=== PATIENT | female | born 1940 | race Caucasian/White ===

== ENCOUNTER 2020-05-03 13:45 | Inpatient (IN) | payer MEDICARE, SELFPAY ==
[2020-05-03] VITALS (8 sets, daily range): BP systolic 117–137; BP diastolic 65–98; PULSE 80–123; RESP 18–20; TEMP 36.7–37; O2SAT 94–99; BMI 24.7; BMI 25.7
--- NOTE | 2020-05-03 14:03 | XR_ITS ---
EXAMINATION: XR CHEST CLINICAL INFORMATION: Chest pain COMPARISON: 05/29/2019 TECHNIQUE: Frontal view of the chest was obtained. FINDINGS: No focal consolidation, pulmonary edema, or pleural effusion. Stable cardiomediastinal silhouette. Right axillary surgical clips. IMPRESSION: No acute cardiopulmonary findings. No significant change.
--- NOTE | 2020-05-03 14:03 | ECG_ITS ---
Test Reason : CHEST PAIN Blood Pressure : / mmHG Vent. Rate : 134 BPM Atrial Rate : 170 BPM P-R Int : 000 ms QRS Dur : 078 ms QT Int : 322 ms P-R-T Axes : 000 -03 254 degrees QTc Int : 480 ms Atrial fibrillation with rapid ventricular response Low voltage QRS ST & T wave abnormality, consider anterolateral ischemia Abnormal ECG When compared with ECG of 01-DEC-2018 11:41, Atrial fibrillation has replaced Sinus rhythm Vent. rate has increased BY 59 BPM Referred By: Manny Love Electronically Signed By:NEEMA VALADEZ MD
[2020-05-03 14:19] LABS: MANUAL DIFF FLAG NO
[2020-05-03] MEDS: dilTIAZem HCL 50 MG/10 ML VIAL 15.30875 MG IVPUSH (14:20)
[2020-05-03 14:23] LABS: Basophils Absolute Auto 0.1 X10*3/uL (0.0-0.2); Basophils Percent Auto 0.8 % (0-2); Eosinophils Absolute Auto 0.2 X10*3/uL (0.0-0.4); Eosinophils Percent Auto 2.6 % (0-4); Hematocrit 38.1 % (37-47); Hemoglobin 12.7 g/dl (12.0-16.0); Imm Gran Abs Auto 0.01 X10*3/uL (0.00-0.03); Imm Gran Pct Auto 0.2 % (0.0-0.4); Lymphocytes Absolute Auto 2.1 X10*3/uL (1.2-4.9); Lymphocytes Percent Auto 32.9 % (20-40); Mean Corpuscular HGB Conc 33.3 g/dl (31.0-35.0); Mean Corpuscular Hemoglobin 30.6 pg (27.0-33.0); Mean Corpuscular Volume 91.8 fL (80-98); Mean Platelet Volume 10.3 fL (9.4-12.3); Monocytes Absolute Auto 0.5 X10*3/uL (0.1-1.2); Monocytes Percent Auto 7.3 % (2-11); Neutrophils Absolute Auto 3.6 X10*3/uL (2.0-8.3); Neutrophils Percent Auto 56.2 % (45-73); Platelet Count 250 X10*3/uL (160-400); Red Blood Count 4.15 X10*6/uL (4.20-5.50); Red Cell Distribution Width 13.4 % (11.0-16.0); White Blood Count 6.4 X10*3/uL (4.8-10.8)
--- NOTE | 2020-05-03 14:26 | PC.NURSE ---
VERBAL ORDER TO HOLD THE CARDIZAM 15MG BY DR NUGENT, HEART RATE RANGES FROM 93-115,AT THIS TIME, BP 117/87
[2020-05-03 14:52] LABS: Alanine Aminotransferase 14 U/L (0-31); Alkaline Phosphatase 71 U/L (39-117); Anion Gap 14 (12-20); Aspartate Amino Transferase 15 U/L (5-31); Bilirubin Total 0.7 mg/dL (0.0-1.0); Blood Urea Nitrogen 23 mg/dL (9-16); Calcium 8.8 mg/dL (8.4-10.2); Carbon Dioxide 21 mmol/L (22-29); Chloride 108 mmol/L (96-108); Creatinine Clr Calc Pharmacy 30.6; Estimated Glomerular Filt Rate 42; Glucose Random 135 mg/dL (60-115); Potassium 4.3 mmol/l (3.3-5.1); Sodium 139 mmol/L (135-145); Total Protein 6.4 g/dL (6.5-8.0)
[2020-05-03 14:58] LABS: Troponin-I High Sensitivity 6.1 ng/L (<3.5-17.0)
--- NOTE | 2020-05-03 15:06 | ED_ITS ---
HPI - Arrhythmia/Palpitations General Chief Complaint: Arrhythmia/Palpitations Stated Complaint: MULTIPLE COMPLAINTS Time Seen by Provider: 05/03/20 14:03 Source: patient Limitations: no limitations History of Present Illness HPI narrative: This is 80 years old of female who presented to the emergency department with a chief complain no palpitations, also she is complaining of shortness of breath she has history A fib hhe is anticoagulated with the [place] GUTIERREZ complaint: rapid heart beat and heart racing Duration: constant Severity: moderate Context: occurred during rest Arrhythmia history: atrial fibrillation Related Data Allergies Allergy/AdvReac Type Severity Reaction Status Date / Time No Known Allergies Allergy Unverified 04/09/20 16:39 [No Known Allergies*] Review of Systems Review of Systems: Yes all other systems are reviewed and are negative Cardiovascular: Cardiovascular: Reports no additional cardiovascular complaints Respiratory: Respiratory: Reports no additional respiratory complaints Psychiatric: Psychiatric: Reports no additional psychiatric complaints [facility] Past Medical History Attestation statement: The following information was validated with the patient. Medical History (Updated 05/03/20 @ 16:27 by Manny Love MD) Afib HTN (hypertension) Surgical History History of bilateral knee replacement Social History Social History Smoking Status: Former smoker Use of substances other than those prescribed or required for medical reasons: No Advance Directives: No Advance Directives Information Provided: Yes Physical Exam Vital Signs: Vital Signs: Vital Signs Temp Pulse Pulse Resp BP Pulse Ox 05/03/20 15:46 113 H 134/68 05/03/20 15:18 98.0 F 89 20 137/66 94 05/03/20 14:27 93 05/03/20 14:21 98 117/87 05/03/20 14:00 98.6 F 123 H 18 129/98 H 98 Body Mass Index 24.7 Const: General: cooperative Orientation/consciousness: oriented to person and oriented to place HENMT: Head: Yes normal to inspection Eyes: General: appearance normal, both eyes and all related structures Neck: Neck: Yes normal visual inspection Chest: Chest palpation & inspection: normal inspection of the chest and normal palpation of entire chest wall Resp: Effort & Inspection: normal respiratory effort and able to speak in complete sentences Cardio: Jugular venous distension: no JVD Rate: tachycardic Rhythm: abnormal rhythm Skin: General skin exam: no rashes or lesions noted and elasticity normal Neuro: General: oriented to person and oriented to place MDM - Arrhythmia/Palpitations Lab Data Attestation: I reviewed the patient's lab results. Result diagrams: 05/03/20 14:12 05/03/20 14:12 Labs: Lab Results 05/03/20 05/03/20 05/03/20 Range/Units 14:12 14:12 14:12 WBC 6.4 (4.8-10.8) X10*3/uL RBC 4.15 L (4.20-5.50) X10*6/uL Hgb 12.7 (12.0-16.0) g/dl Hct 38.1 (37-47) % MCV 91.8 (80-98) fL MCH 30.6 (27.0-33.0) pg MCHC 33.3 (31.0-35.0) g/dl RDW 13.4 (11.0-16.0) % Plt Count 250 (160-400) X10*3/uL MPV 10.3 (9.4-12.3) fL Immature Gran % (Auto) 0.2 (0.0-0.4) % Neut % (Auto) 56.2 (45-73) % Lymph % (Auto) 32.9 (20-40) % [place] % (Auto) 7.3 (2-11) % Eos % (Auto) 2.6 (0-4) % Baso % (Auto) 0.8 (0-2) % Lymph # (Auto) 2.1 (1.2-4.9) X10*3/uL [place] # (Auto) 0.5 (0.1-1.2) X10*3/uL Eos # (Auto) 0.2 (0.0-0.4) X10*3/uL Baso # (Auto) 0.1 (0.0-0.2) X10*3/uL Abs Immat Gran (auto) 0.01 (0.00-0.03) X10*3/uL Absolute Neuts (auto) 3.6 (2.0-8.3) X10*3/uL Absolute Nucleated RBC 0.000 (0.0-0.012) X10*3/uL Nucleated RBC % (auto) 0.0 (0.0-0.2) /100WBC Sodium 139 (135-145) mmol/L Potassium 4.3 (3.3-5.1) mmol/l Chloride 108 (96-108) mmol/L Carbon Dioxide 21 L (22-29) mmol/L Anion Gap 14 (12-20) BUN 23 H (9-16) mg/dL Creatinine 1.24 (0.5-1.4) mg/dL Estim Creat Clear Calc 30.6 Estimated GFR 42 Random Glucose 135 H (60-115) mg/dL Calcium 8.8 (8.4-10.2) mg/dL Total Bilirubin 0.7 (0.0-1.0) mg/dL AST 15 (5-31) U/L ALT 14 (0-31) U/L Alkaline Phosphatase 71 (39-117) U/L Troponin I High Sens 6.1 (<3.5-17.0) ng/L Total Protein 6.4 L (6.5-8.0) g/dL Albumin 4.0 (3.5-5.0) g/dL ECG Data Attestation: I personally reviewed and interpreted this ECG as follows: ECG interpretation time: 15:18 Pacemaker model: atrial fibrillation rate [address]-T changes Critical Care Time Critical Care Time Total Critical Care Time: 30 Attestation: CRICKET sommerzem Discharge Plan Discharge Clinical Impression: Atrial fibrillation with rapid ventricular response Patient Disposition: Admitted As Inpatient
[2020-05-03] MEDS: dilTIAZem HCL 125 MG in 0.9 % Sodium Chloride 100 ML IVCONT (15:44)
--- NOTE | 2020-05-03 16:32 | PC.NURSE ---
CARDIZAM DRIP INCREASED FROM 5MG/H TO 10MG/H
--- NOTE | 2020-05-03 16:44 | PM.IMHP ---
History of Present Illness Date of Service: 05/03/20 <Jeri Fuentes NP - Last Filed: 05/03/20 16:57> Chief Complaint: Shortness of breath <Jeri Fuentes NP - Last Filed: 05/03/20 16:57> 80-year-old woman presented to the ER with complaints of increased shortness of breath. She stated that over the last 3 days she has felt more tired and short of breath and having bilateral leg pain. She was reported that yesterday she had been going through her closets in taking close out and she started feeling dizzy. And this morning she noticed that she had a bloodshot red eye and that is what concerned her and that is really why she presented to the ER. She does have a history of atrial fibrillation. in the ER chest x-ray was negative for any consolidation. She was not noted to have any fever or leukocytosis. She was started on IV diltiazem and given 2 doses of IV push diltiazem. She will be admitted for further management treatment of atrial fibrillation with rapid ventricular response. <Jeri Fuentes NP - Last Filed: 05/03/20 16:57> Review of Systems Review of Systems: Denies any recent fever chills or decrease in appetite respiratory denies any shortness of breath coverage production cardiovascular no PND or edema gastrointestinal denies any dysphagia abdominal pain nausea vomiting or diarrhea genitourinary denies any dysuria frequency or hematuria musculoskeletal denies any joint pain or swelling neuropsych denies any weakness or seizures all other systems reviewed are negative <Jeri Fuentes NP - Last Filed: 05/03/20 16:57> [facility] Medical History: Medical History Afib Breast cancer Chronic back pain Diverticulitis HTN (hypertension) Mitral regurgitation <VITA Temple Last Filed: 05/03/20 16:57> Functional capacity: independent ambulation <Jeri Fuentes NP - Last Filed: 05/03/20 16:57> Family History: Family History Father No problems noted. Mother No problems noted. <VITA Temple Last Filed: 05/03/20 16:57> Pertinent family history: hypertension <VITA Temple Last Filed: 05/03/20 16:57> Surgical History: Surgical History History of appendectomy History of bilateral knee replacement Status post right breast lumpectomy <Jeri Fuentes NP - Last Filed: 05/03/20 16:57> Social History: Social History Household Members: Spouse Housing: House Smoking Status: Former smoker Use of substances other than those prescribed or required for medical reasons: No Advance Directives: No Advance Directives Information Provided: Yes service: No Current occupational status: retired <Jeri Fuentes NP - Last Filed: 05/03/20 16:57> Meds Allergies/Adverse reactions: Allergies Allergy/AdvReac Type Severity Reaction Status Date / Time No Known Allergies Allergy Verified 05/03/20 17:24 [No Known Allergies*] <Jeri Fuentes NP - Last Filed: 05/03/20 16:57> Home medications: Home Medications Medication Instructions Recorded Confirmed Type Eliquis 5 mg PO BID 05/03/20 05/15/20 History amlodipine 5 mg PO DAILY 05/03/20 05/15/20 History irbesartan 150 mg PO DAILY 05/03/20 05/15/20 History omeprazole 20 mg PO DAILY 05/03/20 05/15/20 History metoprolol tartrate 50 mg tablet 50 mg PO BID 05/15/20 05/15/20 History <Jeri Fuentes NP - Last Filed: 05/03/20 16:57> Physical Exam Vital Signs and Narrative: Vital Signs: Last Vital Signs Temp 98.0 F 05/03/20 15:18 Pulse 114 H 05/03/20 16:28 Resp 18 05/03/20 16:28 BP 127/65 05/03/20 16:28 Pulse Ox 99 05/03/20 16:28 Body Mass Index 24.7 <Jeri Fuentes NP - Last Filed: 05/03/20 16:57> Results Labs Labs: Laboratory Tests 05/03/20 05/03/20 05/03/20 14:12 14:12 14:12 WBC 6.4 RBC 4.15 L Hgb 12.7 Hct 38.1 MCV 91.8 MCH 30.6 MCHC 33.3 RDW 13.4 Plt Count 250 MPV 10.3 Immature Gran % (Auto) 0.2 Neut % (Auto) 56.2 Lymph % (Auto) 32.9 [place] % (Auto) 7.3 Eos % (Auto) 2.6 Baso % (Auto) 0.8 Lymph # (Auto) 2.1 [place] # (Auto) 0.5 Eos # (Auto) 0.2 Baso # (Auto) 0.1 Abs Immat Gran (auto) 0.01 Absolute Neuts (auto) 3.6 Absolute Nucleated RBC 0.000 Nucleated RBC % (auto) 0.0 Sodium 139 Potassium 4.3 Chloride 108 Carbon Dioxide 21 L Anion Gap 14 BUN 23 H Creatinine 1.24 Estim Creat Clear Calc 30.6 Estimated GFR 42 Random Glucose 135 H Calcium 8.8 Total Bilirubin 0.7 AST 15 ALT 14 Alkaline Phosphatase 71 Troponin I High Sens 6.1 Total Protein 6.4 L Albumin 4.0 <Jeri Fuentes NP - Last Filed: 05/03/20 16:57> Assessment and Plan (1) Atrial fibrillation with rapid ventricular response: Status: Acute <Jeri Fuentes NP - Last Filed: 05/03/20 16:57> (2) HTN (hypertension): Status: Chronic <Jeri Fuentes NP - Last Filed: 05/03/20 16:57> 80-year-old woman admitted with atrial fibrillation with rapid ventricular response with history of atrial fibrillation. Atrial fibrillation with rapid ventricular response. Continue IV diltiazem, monitor on telemetry, Cardiology consultation, continue Eliquis. Hypertension. Stable blood pressure. Continue home medications. DVT prophylaxis with Eliquis. Case discussed with Dr. Roldan Full code <Jeri Fuentes NP - Last Filed: 05/03/20 16:57>
--- NOTE | 2020-05-03 17:06 | PM.EVENT ---
Event Note Event Note: Patient seen and examined- came to the hospital found to have AFib with RVR and had generalized weakness: patient also has some question of a red eye on what is the side patient started on diltiazem drip. patient was admitted last year to the hospital when she required the cardioversion which was successful.. physical exam: Cvs: Irregular rhythm, [id number] , no murmur res: clear to auscultation ,no rhonchii or wheezing abd: no rebound or guarding ,nt, bs present. ext pulses present , no cyanosis neuro: axo3 , nonfocal. Lab imaging and EKG reviewed assessment and plan coordinated in APC note agree with plan continue Cardizem drip TSH levels Cardio evaluation in a.m..
--- NOTE | 2020-05-03 18:10 | PC.NURSE ---
PT RESTING IN THE STRETCHER COMFORTABLY DENIES CHEST PAIN AT THIS TIME, BUT DID REPORT WHEN AMBULATING TO THE BATHROOM FELT SOB, A FIB ON THE MONITOR RATE VARIES FROM 94-116
--- NOTE | 2020-05-03 18:16 | PC.NURSE ---
called the floor to give report but nurse not available at this time
--- NOTE | 2020-05-03 18:38 | PC.NURSE ---
report given to imc rn
[2020-05-03 19:54] LABS: Magnesium 1.7 mg/dL (1.6-2.6)
[2020-05-03] MEDS: Apixaban 5 MG TABLET PO (20:04)
[2020-05-03 20:15] LABS: Thyroid Stimulating Hormone 2.89 mIU/mL (0.32-4.0)
[2020-05-04] VITALS (16 sets, daily range): BP systolic 108–121; BP diastolic 60–83; PULSE 71–127; RESP 16–20; TEMP 36.2–36.9; O2SAT 92–97
[2020-05-04] MEDS: Apixaban 5 MG TABLET PO ×2 (07:30→21:43)
[2020-05-04] MEDS: Valsartan 80 MG TABLET PO (07:30)
[2020-05-04] MEDS: amLODIPine Besylate 5 MG TABLET PO (07:31)
--- NOTE | 2020-05-04 10:14 | MHC.CM.PN ---
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 PT REPORTS IT IS JUST THE TWO OF THEM AT HOME AND SHE IS INDEPENDENT WITH ALL CARE AND MOBILITY. PT DENIES THE USE OF ANY DME OR COMMUNITY/HOME SERVICES. PT HAS A HCP COMPLETED NAMING HER DAUGHTER ROME HER AGENT-COPY REQUESTED. PT CONFIRMS PCP ON FILE CORRECT. IMM DELIVERED VERBALLY, [place] [employer]ONSTRATES UNDERSTANDING, COPY PROVIDED CURRENT DC PLAN IS HOME WITH NO SERVICES
--- NOTE | 2020-05-04 11:42 | PM.CNCAR ---
History of Present Illness History of Present Illness Date of Consult: May 04, 2020 Requesting physician: Jeri Fuentes Consult reason: atrial fibrillation Chief complaint: afib rvr Narrative: This is a cardiology consultation regarding atrial fibrillation. She has a background of COPD as well as atrial fibrillation. Last year, she underwent cardioversion. She is maintained on beta-blockers as well as Eliquis. The last few days, she has been having some shortness of breath and tiredness and leg discomfort. She was also noticing some redness in the eye. She was seen in the emergency room and found to have atrial fibrillation rapid rate and then she was admitted. She really does not feel much of palpitations but the main complaint is just shortness of breath and chest pressure type feeling. She is also feeling tired. She is currently on a Cardizem drip. Review of Systems Review of Systems: Cardiac-positive for shortness of breath. Positive for chest pressure. Positive for leg pain. Remainder of the 10 system review is negative. [facility] Past Medical History Medical History Afib Breast cancer Chronic back pain Diverticulitis HTN (hypertension) Functional capacity: independent ambulation Family History Pertinent family history: Hypertension. Surgical History Surgical History History of appendectomy History of bilateral knee replacement Status post right breast lumpectomy Social History Social History Household Members: Spouse Housing: House Do you presently have visiting nurse or other home services: No Smoking Status: Former smoker Use of substances other than those prescribed or required for medical reasons: No Currently Displaying Signs/Symptoms of Drug Intoxication Withdrawal: No Have you been hit, kicked, punched, or otherwise hurt by someone within the past year? If so, by whom?: No Do you feel safe in your current relationship?: Yes Is there a partner from a previous relationship who is making you feel unsafe now?: No Are you made to feel afraid or neglected: No Advance Directives: No Advance Directives Information Provided: Yes Do you have thoughts of harming others: None Do you have a plan to hurt others: No Plan service: No Current occupational status: retired Meds Allergies Allergy/AdvReac Type Severity Reaction Status Date / Time No Known Allergies Allergy Verified 05/03/20 17:24 [No Known Allergies*] Home Medications Medication Instructions Recorded Confirmed Type amlodipine 5 mg PO DAILY 05/03/20 05/03/20 History apixaban [Eliquis] 5 mg PO BID 05/03/20 05/03/20 History irbesartan 150 mg PO DAILY 05/03/20 05/03/20 History metoprolol succinate 50 mg PO DAILY 05/03/20 05/03/20 History omeprazole 20 mg PO DAILY 05/03/20 05/03/20 History Physical Exam Vital Signs: Vital Signs: Vital Signs Temp Pulse Pulse Resp BP Pulse Ox 05/04/20 07:31 105 H 115/69 05/04/20 07:30 105 H 115/69 05/04/20 07:23 97.9 F 105 H 20 115/69 95 05/04/20 04:05 85 05/04/20 03:45 97.7 F 98 16 114/70 95 05/04/20 00:00 97.4 F 90 16 108/71 93 05/03/20 20:00 98.2 F 80 18 119/77 96 05/03/20 18:09 103 H 124/65 98 05/03/20 16:28 114 H 18 127/65 99 05/03/20 15:46 113 H 134/68 05/03/20 15:18 98.0 F 89 20 137/66 94 05/03/20 14:27 93 05/03/20 14:21 98 117/87 05/03/20 14:00 98.6 F 123 H 18 129/98 H 98 Body Mass Index 25.7 Comfortable, no distress No pallor, icterus or cyanosis HEENT -unremarkable JVD- normal Cardiac- normal heart sounds, no murmurs, gallops or rubs, normal PMI Respiratory- Diminished breath sounds bilaterally Abdomen- soft, nontender Neuro- alert and oriented Lower extremities- trace leg edema Results Labs and Meds Result diagrams: 05/03/20 14:12 05/03/20 14:12 Lab results: Laboratory Results - last 24 hr 05/03/20 05/03/20 05/03/20 14:12 14:12 14:12 WBC 6.4 RBC 4.15 L Hgb 12.7 Hct 38.1 MCV 91.8 MCH 30.6 MCHC 33.3 RDW 13.4 Plt Count 250 MPV 10.3 Immature Gran % (Auto) 0.2 Neut % (Auto) 56.2 Lymph % (Auto) 32.9 [place] % (Auto) 7.3 Eos % (Auto) 2.6 Baso % (Auto) 0.8 Lymph # (Auto) 2.1 [place] # (Auto) 0.5 Eos # (Auto) 0.2 Baso # (Auto) 0.1 Abs Immat Gran (auto) 0.01 Absolute Neuts (auto) 3.6 Absolute Nucleated RBC 0.000 Nucleated RBC % (auto) 0.0 Sodium 139 Potassium 4.3 Chloride 108 Carbon Dioxide 21 L Anion Gap 14 BUN 23 H Creatinine 1.24 Estim Creat Clear Calc 30.6 Estimated GFR 42 Random Glucose 135 H Calcium 8.8 Magnesium 1.7 Total Bilirubin 0.7 AST 15 ALT 14 Alkaline Phosphatase 71 Troponin I High Sens 6.1 Total Protein 6.4 L Albumin 4.0 TSH 2.89 Cardiology Testing Echo: report reviewed EKG Interpretation EKG Comments: EKG with atrial fibrillation at 01:34/Min with nonspecific ST-T changes. Assessment and Plan (1) Atrial fibrillation with rapid ventricular response: Status: Acute (2) HTN (hypertension): Qualifiers: Hypertension type: essential hypertension Qualified Code(s): I10 - Essential (primary) hypertension Status: Chronic We can start her on digoxin load. 250 mcg x 3 doses today. Once the heart rate slows, we can start being on the Cardizem drip. If he cannot adequately control the heart rate, then potentially cardioversion. Continue Eliquis without any interruptions. Discussed with family at the bedside.
[2020-05-04] MEDS: dilTIAZem HCL 125 MG in 0.9 % Sodium Chloride 100 ML 10 MG IVCONT (11:43)
[2020-05-04] MEDS: Digoxin 0.25 MG TABLET PO ×3 (11:46→22:52)
--- NOTE | 2020-05-04 15:59 | HO.PM.IMPN ---
Subjective Subjective Date of Service: 05/04/20 Interval History: afib , sob Review of Systems patient says shortness of breath improved significantly denies any chest pain or palpation. Physical Exam Vital Signs: Vital Signs: Vital Signs Temp Pulse Resp BP Pulse Ox 05/04/20 15:33 98 F 97 18 119/83 93 05/04/20 12:00 97.2 F 100 18 112/60 97 05/04/20 11:46 121 H 05/04/20 11:43 127 H 108/71 05/04/20 07:31 105 H 115/69 05/04/20 07:30 105 H 115/69 05/04/20 07:23 97.9 F 105 H 20 115/69 95 05/04/20 04:05 85 05/04/20 03:45 97.7 F 98 16 114/70 95 05/04/20 00:00 97.4 F 90 16 108/71 93 05/03/20 20:00 98.2 F 80 18 119/77 96 05/03/20 18:09 103 H 124/65 98 05/03/20 16:28 114 H 18 127/65 99 Body Mass Index 25.7 physical exam: cvs: irregular rythem, [id number] , no murmur res: clear to auscultation ,no rhonchii or wheezing abd: no rebound or guarding ,nt, bs present. ext pulses present , no cyanosis neuro: axo3 , nonfocal. Objective Data Current Medications Generic Name Dose Route Start Last Admin Trade Name Freq PRN Reason Stop Dose Admin Apixaban 5 mg 05/03/20 21:00 05/04/20 07:30 Apixaban 5 Mg Tablet PO 5 mg BID JULIO Administration Digoxin 0.25 mg 05/04/20 11:00 05/04/20 11:46 Digoxin 0.25 Mg Tablet PO 05/04/20 23:01 0.25 mg Q6H JULIO Administration Diltiazem HCl 125 mg/ Sodium 125 mls @ 0 mls/hr 05/03/20 14:15 05/04/20 13:45 Chloride IVCONT 5 mg/hr .Q0M JULIO 5 mls/hr Titration Protocol Per Protocol Metoprolol Tartrate 25 mg 05/04/20 15:00 Metoprolol Tartrate 25 Mg Tablet PO TID JULIO Protocol Pharmacy Consult 1 each 05/03/20 16:06 Consult Rx Perform Med Rec MISCELLANE ONCE PRN Consult order Labs CBC & Chem 7: 05/03/20 14:12 05/03/20 14:12 Assessment and Plan (1) Atrial fibrillation with rapid ventricular response: Status: Acute (2) HTN (hypertension): Status: Chronic Assessment and Plan: 80-year-old woman admitted with atrial fibrillation with rapid ventricular response with history of atrial fibrillation. Atrial fibrillation with rapid ventricular response. Cardio evaluation noted: Continue IV diltiazem, loaded with digoxin,monitor on telemetry,, continue Eliquis. will titrate slowly Cardizem drip. Hypertension. Stable blood pressure. Continue home medications. DVT prophylaxis with Eliquis.
[2020-05-04] MEDS: Metoprolol Tartrate 25 MG TABLET PO ×2 (16:37→21:43)
--- NOTE | 2020-05-05 01:47 | PC.NURSE ---
Cardizem drip infusing at 2.5mg/hr . Patient's heart rate going as low as the 60's. Cardizem drip stopped at [address] Hussein notified, vital signs stable. Will continue to monitor.
[2020-05-05 03:43] VITALS: BP 123/68; PULSE 82; RESP 18; TEMP 36.9; O2SAT 94
[2020-05-05 08:00] VITALS: BP 114/64; PULSE 108; RESP 18; TEMP 36.6; O2SAT 94
[2020-05-05 08:58] VITALS: BP 114/64; PULSE 108
[2020-05-05] MEDS: Metoprolol Tartrate 25 MG TABLET PO ×2 (08:58→15:28)
[2020-05-05] MEDS: Apixaban 5 MG TABLET PO (08:58)
[2020-05-05 12:00] VITALS: PULSE 88
--- NOTE | 2020-05-05 12:15 | P.PNCA_ITS ---
Subjective Subjective Interval history: Seen and examined. She states that she feels good. Not having any palpitations. Continues to be in atrial fibrillation but with controlled rate. Review of Systems Review of Systems cardiac- negative any angina or shortness of breath or palpitations or syncopal episodes. Remainder of the 10 system review negative. Physical Exam Vital Signs: Vital Signs Temp Pulse Resp BP Pulse Ox 05/05/20 08:58 108 H 114/64 05/05/20 08:00 97.8 F 108 H 18 114/64 94 05/05/20 03:43 98.5 F 82 18 123/68 94 05/04/20 23:42 98.4 F 71 18 121/71 92 05/04/20 22:52 86 05/04/20 21:43 80 05/04/20 19:01 98 F 73 18 116/63 95 05/04/20 17:25 98 05/04/20 16:37 110 H 05/04/20 15:33 98 F 97 18 119/83 93 Body Mass Index 25.7 Comfortable, no distress No pallor, icterus or cyanosis HEENT -unremarkable JVD- normal Cardiac- normal heart sounds, no murmurs, gallops or rubs, normal PMI Respiratory- Diminished breath sounds bilaterally Abdomen- soft, nontender Neuro- alert and oriented Lower extremities- trace leg edema Progress Note: A&P Assessment and plan (1) Atrial fibrillation with rapid ventricular response: Status: Acute (2) HTN (hypertension): Status: Chronic Assessment and Plan: Upon telemetry, her rhythm appears to be atrial fibrillation at a rate of 72/Min. Overall, she is significantly slower than prior. Continue with digoxin. Continue with oral beta blockers. Discharge planning. FU with in office will be arranged. Fall Risk Details Current Medications: Current Medications Generic Name Dose Route Start Last Admin Trade Name Freq PRN Reason Stop Dose Admin Apixaban 5 mg 05/03/20 21:00 05/05/20 08:58 Apixaban 5 Mg Tablet PO 5 mg BID JULIO Administration Diltiazem HCl 125 mg/ Sodium 125 mls @ 0 mls/hr 05/03/20 14:15 05/04/20 22:52 Chloride IVCONT 2.5 mg/hr .Q0M JULIO 2.5 mls/hr Titration Protocol Per Protocol Metoprolol Tartrate 25 mg 05/04/20 15:00 05/05/20 08:58 Metoprolol Tartrate 25 Mg Tablet PO 25 mg TID JULIO Administration Protocol Pharmacy Consult 1 each 05/03/20 16:06 Consult Rx Perform Med Rec MISCELLANE ONCE PRN Consult order Time Spent With Patient Time: Total time spent is greater than 50% in coordination of care (as docu mented) at patient's floor/unit and/or counseling patient: Time with patient: 15 - 24 minutes
--- NOTE | 2020-05-05 12:26 | PM.HEMONCCN ---
Subjective - Subjective Primary Care Provider: Tavo Jain MD HPI - Consult Narrative Narrative: Dianne Carlson is a 80 year old female [facility] Medical History: Medical History (Last Reviewed 05/04/20 @ 11:45 by Gilberto Pepe MD) Afib Breast cancer Chronic back pain Diverticulitis HTN (hypertension) Functional capacity: independent ambulation Surgical History: Surgical History (Last Reviewed 05/04/20 @ 11:46 by Gilberto Pepe MD) History of appendectomy History of bilateral knee replacement Status post right breast lumpectomy Smoking status: Former smoker Home Medications and Allergies Current Medications: Current Medications Generic Name Dose Route Start Last Admin Trade Name Freq PRN Reason Stop Dose Admin Apixaban 5 mg 05/03/20 21:00 05/05/20 08:58 Apixaban 5 Mg Tablet PO 5 mg BID JULIO Administration Diltiazem HCl 125 mg/ Sodium 125 mls @ 0 mls/hr 05/03/20 14:15 05/04/20 22:52 Chloride IVCONT 2.5 mg/hr .Q0M JULIO 2.5 mls/hr Titration Protocol Per Protocol Metoprolol Tartrate 25 mg 05/04/20 15:00 05/05/20 08:58 Metoprolol Tartrate 25 Mg Tablet PO 25 mg TID JULIO Administration Protocol Pharmacy Consult 1 each 05/03/20 16:06 Consult Rx Perform Med Rec MISCELLANE ONCE PRN Consult order Home Medications Medication Instructions Recorded Confirmed Type amlodipine 5 mg PO DAILY 05/03/20 05/03/20 History apixaban [Eliquis] 5 mg PO BID 05/03/20 05/03/20 History irbesartan 150 mg PO DAILY 05/03/20 05/03/20 History metoprolol succinate 50 mg PO DAILY 05/03/20 05/03/20 History omeprazole 20 mg PO DAILY 05/03/20 05/03/20 History Allergies Allergy/AdvReac Type Severity Reaction Status Date / Time No Known Allergies Allergy Verified 05/03/20 17:24 [No Known Allergies*] Physical Exam Vital signs: Vital Signs Temp 97.8 F 05/05/20 08:00 Pulse 108 H 05/05/20 08:58 Resp 18 05/05/20 08:00 BP 114/64 05/05/20 08:58 Pulse Ox 94 05/05/20 08:00 Intake & Output 05/04/20 05/05/20 05/05/20 18:59 06:59 18:59 Intake Total 273.750 / 929.333 655.583 / 929.333 120 / 120 Output Total 800 / 800 Balance 273.750 / 129.333 -144.417 / 129.333 120 / 120 Urine Output (Average ml/kg/hr) 1.05 1.05 Intake: Intake, Oral Amount 180 / 790 610 / 790 120 / 120 Intake, IV Amount 93.750 / 139.333 45.583 / 139.333 dilTIAZem HCL 125 mg In 0.9 % 93.750 / 139.333 45.583 / 139.333 Sodium Chloride 100 ml @ Per Protocol IVCONT .Q0M [facility] Rx#: [id number] Output: Output, Urine Amount 800 / 800 Other: Breakfast % Eaten 25% Lunch % Eaten 75% Urine Bathroom Weight 63.7 kg Hem/Onc Consult Result - Labs CBC & Chem 7: 05/03/20 14:12 05/03/20 14:12
[2020-05-05 15:28] VITALS: BP 127/78; PULSE 114
[2020-05-05 15:39] VITALS: BP 122/73; PULSE 94; RESP 16; TEMP 36.9; O2SAT 98
--- NOTE | 2020-05-05 16:09 | PM.DS ---
DS: Providers Provider Date of admission: 05/03/20 17:31 Primary care physician: Tavo Jain MD Consults: 05/03/20 19:34 Consult to Cardiology Routine Consulting [place] [facility] [place] Reason for consultation: afib rvr Has provider been notified: No DS: Diagnosis Discharge Diagnosis (1) Atrial fibrillation with rapid ventricular response: Status: Acute (2) HTN (hypertension): Status: Chronic DS: Summary Hospital Course Hospital Course: 80-year-old woman presented to the ER with complaints of increased shortness of breath. She stated that over the last 3 days she has felt more tired and short of breath and having bilateral leg pain. She was reported that yesterday she had been going through her closets in taking close out and she started feeling dizzy. And this morning she noticed that she had a bloodshot red eye and that is what concerned her and that is really why she presented to the ER. She does have a history of atrial fibrillation. in the ER chest x-ray was negative for any consolidation. She was not noted to have any fever or leukocytosis. She was started on IV diltiazem and given 2 doses of IV push diltiazem. She will be admitted for further management treatment of atrial fibrillation with rapid ventricular response. pmhx:Afib Breast cancer Chronic back pain Diverticulitis HTN (hypertension) hospital course problem mckinley:patient came with Art fibrillation: Subsequently started on diltiazem drip, loaded with digoxin and Eliquis, seen by Cardiology: Subsequently patient improved With above management and diltiazem and discontinued- AFib mckinley, going home with the her beta-manny and digoxin further management outpatient as per cardiology cardiology may arrange outpatient appointment. Time Spent with Patient Time attestation: Total time spent providing and/or coordinating discharge services: Physical Exam Vital Signs: Vital Signs: Vital Signs Temp Pulse Resp BP Pulse Ox 05/05/20 15:39 98.4 F 94 16 122/73 98 05/05/20 15:28 114 H 127/78 05/05/20 12:00 88 05/05/20 08:58 108 H 114/64 05/05/20 08:00 97.8 F 108 H 18 114/64 94 05/05/20 03:43 98.5 F 82 18 123/68 94 05/04/20 23:42 98.4 F 71 18 121/71 92 10/12/20 22:52 86 05/04/20 21:43 80 05/04/20 19:01 98 F 73 18 116/63 95 05/04/20 17:25 98 05/04/20 16:37 110 H Body Mass Index 25.7 physical exam: cvs: rrr, [id number] , no murmur res: clear to auscultation ,no rhonchii or wheezing abd: no rebound or guarding ,nt, bs present. ext pulses present , no cyanosis neuro: axo3 , nonfocal. Discharge Plan Discharge Patient Disposition: Home, Self-Care Referrals: Tavo Jain MD [Primary Care Provider] - Discharge Medications: New digoxin 125 mcg (0.125 mg) tablet 125 mcg PO DAILY Qty: 30 RF: 0 Continued metoprolol succinate 50 mg Tablet Extended Release 24 Hr 50 mg PO DAILY RF: 0 amlodipine 5 mg Tablet 5 mg PO DAILY RF: 0 omeprazole 20 mg Capsule,Delayed Release(Dr/Ec) 20 mg PO DAILY RF: 0 irbesartan 150 mg Tablet 150 mg PO DAILY RF: 0 Eliquis 5 mg Tablet 5 mg PO BID RF: 0 Discharge Orders: Discharge Order (Routine); Ordered 05/05/20 Ordered By: Josefina Roldan Diet: advance to your usual diet Activity on Discharge: As tolerated Visit Report Forms: Patient Portal Discharge page Care Plan Goals: Patient came with Art fibrillation: Subsequently started on diltiazem drip, digoxin and Eliquis continue: Subsequently patient improved- AFib mckinley, going home with the her beta-manny and digoxin further management outpatient as per cardiology cardiology may arrange outpatient appointment. Health Concerns: As above. Plan of Treatment: As above. ,
[2020-05-05] MEDS: Digoxin 0.125 MG TABLET PO (16:44)
--- NOTE | 2020-05-13 11:37 | ECG_ITS ---
Hook-up date: 2020-05-12 10:17:00 Duration: 25:00:00 Test Indications: UNSPEC AFIB Medications: [id number] QRS complexes 41 Ventricular ectopics which represent <1 % of total QRS comp. * Supraventricular ectopics which represent % of total QRS comp. * Paced QRS complexs which represent % of total QRS comp. VENTRICULAR ECTOPY 41 Isolated 0 Bigeminal Cycles 0 Couplets 0 Runs 0 Beats in Runs * Beats LONGEST at * BPM at :: -- * Beats FASTEST at * BPM at :: -- SUPRAVENTRICULAR ECTOPY * Isolated * Couplets * Runs * Beats in Runs * Beats LONGEST at * BPM at :: -- * Beats FASTEST at * BPM at :: -- HEART RATES 42 MIN at 14:17:00 2020-05-12 73 AVG 138 MAX at 16:14:48 2020-05-12 LONGEST RR 2.6240 secs at 18:32:03 2020-05-12 S-T LEVELS Channel 1 - 128 mm at 10:17:00 2020-05-12 - 128 mm at 10:17:00 2020-05-12 Channel 2 - 128 mm at 10:17:00 2020-05-12 - 128 mm at 10:17:00 2020-05-12 Channel 3 - 128 mm at 02:93:61 -- - 128 mm at 02:93:61 Underlying rhythm is atrial fibrillation; Average ventricular rate 73/min; range 42-138/min; About 3% of beats >100/min; 8% <60/min; Rare ventricular ectopy; Overall, adequate control of atrial fibrillation; Patient diary not available for review. Referred By: Marquita Mcdermott Overread By: GIORGIO SHEEHAN
== END 2020-05-05 17:26 | disposition home or self-care (01) | DRG 310 ==
LOC: HO.ED 17:04 → HO.IMC 18:22
PROVIDERS: Nurse Practitioner Acute Care; Admitting Provider Internal Medicine; Emergency Provider Emergency Medicine; PCP Internal Medicine Medical Oncology; Visit Provider Internal Medicine
DX: I48.91 Unspecified atrial fibrillation (principal); G89.29 Other chronic pain; I10 Essential (primary) hypertension; Z96.653 Presence of artificial knee joint, bilateral; Z79.01 Long term (current) use of anticoagulants; Z79.899 Other long term (current) drug therapy
CPT/HCPCS: 36415; 71045; 80053; 83735; 84443; 84484; 85025; 93005; 93226; 96365; 96366; 96375; 99285; 99291

== ENCOUNTER → 2020-05-12 | Outpatient (BNVA) | payer MEDICARE, SELFPAY | PROVIDERS: PCP Internal Medicine Medical Oncology; Visit Provider Nurse Practitioner Family | DX: I48.91 Unspecified atrial fibrillation (principal) | CPT/HCPCS: 93226 ==

== ENCOUNTER 2020-05-15 12:50 | Outpatient (REF) | payer MEDICARE, SELFPAY ==
[2020-05-15 15:16] LABS: Digoxin 1.4 ng/mL (0.8-2.0)
== END 2020-05-15 12:51 | disposition home or self-care (01) ==
LOC: HO.LAB 12:50
PROVIDERS: PCP Internal Medicine Medical Oncology; Visit Provider Nurse Practitioner Family
DX: I48.91 Unspecified atrial fibrillation (principal); I34.1 Nonrheumatic mitral (valve) prolapse; I10 Essential (primary) hypertension; Z09 Encounter for follow-up examination after completed treatment for conditions other than malignant neoplasm; Z87.891 Personal history of nicotine dependence; Z79.899 Other long term (current) drug therapy
CPT/HCPCS: 80162; 99214

== ENCOUNTER 2020-05-21 07:26 | Day surgery (SDC) | payer MEDICARE, SELFPAY ==
[2020-05-20 12:46] VITALS: BMI 37.8
--- NOTE | 2020-05-20 13:16 | HO.ANESPROP2 ---
HPI - Anesthesia Eval Consult details Narrative: 80yo F for cardioversion (highly symptomatic, rate controlled afib. s/p cardioversion 2019) [facility] Past Medical History Medical History Afib Breast cancer Chronic back pain Diverticulitis HTN (hypertension) Mitral regurgitation Family History Family History Father No problems noted. Mother No problems noted. Surgical History Surgical History History of appendectomy History of bilateral knee replacement Status post right breast lumpectomy Social History Social History Household Members: Spouse Housing: House Smoking Status: Former smoker Use of substances other than those prescribed or required for medical reasons: No Advance Directives: No Advance Directives Information Provided: Yes service: No Current occupational status: retired [employer] Allergies Allergy/AdvReac Type Severity Reaction Status Date / Time No Known Allergies Allergy Verified 05/03/20 17:24 [No Known Allergies*] Home Medications Medication Instructions Recorded Confirmed Type Eliquis 5 mg PO BID 05/03/20 05/15/20 History amlodipine 5 mg PO DAILY 05/03/20 05/15/20 History irbesartan 150 mg PO DAILY 05/03/20 05/15/20 History omeprazole 20 mg PO DAILY 05/03/20 05/15/20 History Exam Exam Date and Time: May 20, 2020 1316 Height,Weight and Vital Signs: Height 5 ft 2 in Weight 93.894 kg Pertinent Lab Results Pertinent Lab Results: Laboratory Tests 05/03/20 05/03/20 14:12 14:12 WBC 6.4 Hgb 12.7 Hct 38.1 Plt Count 250 Sodium 139 Potassium 4.3 Chloride 108 Carbon Dioxide 21 L BUN 23 H Creatinine 1.24 Narrative Narrative: ECHO 2019: Nml LV and RV function, mod MR, severe MAC EKG 04/2020: afib@75, low volt qrs Assessment and Plan Assessment Anesthesia Assessment: Chart Reviewed
--- NOTE | 2020-05-21 | ECG_ITS ---
Test Reason : POST CARDIOVERSION Blood Pressure : / mmHG Vent. Rate : 055 BPM Atrial Rate : 055 BPM P-R Int : 236 ms QRS Dur : 086 ms QT Int : 442 ms P-R-T Axes : 043 -13 -25 degrees QTc Int : 422 ms Sinus bradycardia with 1st degree A-V block ST & T wave abnormality, consider anterior ischemia Abnormal ECG When compared with ECG of 03-MAY-2020 13:49, Sinus rhythm has replaced Atrial fibrillation Vent. rate has decreased BY 79 BPM Nonspecific T wave abnormality has replaced inverted T waves in Lateral leads Referred By: Ricardo Lackey Electronically Signed By:NEEMA VALADEZ MD
[2020-05-21 07:59] VITALS: BP 109/72; PULSE 95; RESP 18; TEMP 36.2; O2SAT 96
[2020-05-21] MEDS: Lactated Ringers 1,000 ML 50 ML IVCONT (08:19)
--- NOTE | 2020-05-21 08:22 | P.CONAN_ITS ---
[facility] Past Medical History Medical History Afib Breast cancer Chronic back pain Diverticulitis HTN (hypertension) Mitral regurgitation Family History Family History Father No problems noted. Mother No problems noted. Surgical History Surgical History History of appendectomy History of bilateral knee replacement Status post right breast lumpectomy Social History Social History Household Members: Spouse Housing: House Smoking Status: Former smoker Use of substances other than those prescribed or required for medical reasons: No Advance Directives: No Advance Directives Information Provided: Yes service: No Current occupational status: [employer] Allergies Allergy/AdvReac Type Severity Reaction Status Date / Time No Known Allergies Allergy Verified 05/03/20 17:24 [No Known Allergies*] Home Medications Medication Instructions Recorded Confirmed Type Eliquis 5 mg PO BID 05/03/20 05/15/20 History amlodipine 5 mg PO DAILY 05/03/20 05/15/20 History irbesartan 150 mg PO DAILY 05/03/20 05/15/20 History omeprazole 20 mg PO DAILY 05/03/20 05/15/20 History metoprolol tartrate 50 mg tablet 50 mg PO BID 05/15/20 05/15/20 History Exam Exam Date and Time: May 21, 2020 0822 Height,Weight and Vital Signs: Height 5 ft 2 in Weight 93.894 kg Last Vital Signs Temp 97.1 F 05/21/20 07:59 Pulse 95 05/21/20 07:59 Resp 18 05/21/20 07:59 BP 109/72 05/21/20 07:59 Pulse Ox 96 05/21/20 07:59 Airway Mallampati Class: II TM Dist: >3cm Neck ROM: Full Denture: Upper Heart: irreguler Lungs: CTA BL
--- NOTE | 2020-05-21 08:24 | P.CONAN_ITS ---
[facility] Past Medical History Medical History Afib Breast cancer Chronic back pain Diverticulitis HTN (hypertension) Mitral regurgitation Family History Family History Father No problems noted. Mother No problems noted. Surgical History Surgical History History of appendectomy History of bilateral knee replacement Status post right breast lumpectomy Social History Social History Household Members: Spouse Housing: House Smoking Status: Former smoker Use of substances other than those prescribed or required for medical reasons: No Advance Directives: No Advance Directives Information Provided: Yes service: No Current occupational status: [employer] Allergies Allergy/AdvReac Type Severity Reaction Status Date / Time No Known Allergies Allergy Verified 05/03/20 17:24 [No Known Allergies*] Home Medications Medication Instructions Recorded Confirmed Type Eliquis 5 mg PO BID 05/03/20 05/15/20 History amlodipine 5 mg PO DAILY 05/03/20 05/15/20 History irbesartan 150 mg PO DAILY 05/03/20 05/15/20 History omeprazole 20 mg PO DAILY 05/03/20 05/15/20 History metoprolol tartrate 50 mg tablet 50 mg PO BID 05/15/20 05/15/20 History Exam Exam Date and Time: May 21, 2020 0824 Height,Weight and Vital Signs: Height 5 ft 2 in Weight 93.894 kg Last Vital Signs Temp 97.1 F 05/21/20 07:59 Pulse 95 05/21/20 07:59 Resp 18 05/21/20 07:59 BP 109/72 05/21/20 07:59 Pulse Ox 96 05/21/20 07:59 Assessment and Plan Assessment Anesthesia Assessment: Anesthesia Plan Discussed and Chart Reviewed Final Anesthetic Review NPO: Yes ASA Class: III Final Preanesthetic Review: No Changes in Pt Med Stat, Meds/Allgs Chart Reviewed and Consent Obtained/Reviewed Patient Risk: Intermediate Procedure Risk: Intermediate Anesthetic Plan Anesthetic Plan: GA Disposition: Standard PACU
--- NOTE | 2020-05-21 08:46 | MHC.SHP ---
Pre-Procedural Eval Section A The patient is an INPATIENT: No The History & Physical has been completed within 30 days and I have reviewed it.: Yes Section B Chief Complaint: A-fib Allergies: Allergies Allergy/AdvReac Type Severity Reaction Status Date / Time No Known Allergies Allergy Verified 05/03/20 17:24 [No Known Allergies*] Plan Diagnosis/Plan: Unchanged Patient has been examined and remains a candidate for the planned procedure
[2020-05-21 08:47] VITALS: BP 96/50; PULSE 59; RESP 16; TEMP 36.8; O2SAT 100
[2020-05-21 08:52] VITALS: BP 96/47; PULSE 57; RESP 16; O2SAT 97
--- NOTE | 2020-05-21 08:55 | HO.CARDIVERS ---
Cardioversion Procedure Note Cardioversion Date of Procedure: 05/21/20 Ordering Provider: Ricardo Lackey MD Performing Provider: Ricardo Lackey MD Indication for Procedure: Atrial Fibrillation Pre-Op Diagnosis: Atrial Fibrillation Post-Op Diagnosis: Atrial Fibrillation Performed with Transesophageal Echo: No History: 80 year old female with PAF and palpitations/fatigue. Consent: Verbal and Written consent was obtained from the patient before starting. The patient was made aware of the risk of [] Procedure: After consent obtained, defib pads were attached and the patient was sedated by the anesthesia team. Once adequate sedation achieved, patient was given single synchronized shock of 200 Joules and she converted to sinus rhythm. This was confirmed on ECG. She was left in a stable condition with anesthesia for recovery. Complications: None Recommendations: See Discharge note.
[2020-05-21 08:57] VITALS: BP 96/48; PULSE 56; RESP 16; O2SAT 95
[2020-05-21 09:02] VITALS: BP 108/61; PULSE 57; RESP 16; O2SAT 96
[2020-05-21 09:17] VITALS: BP 105/57; PULSE 56; RESP 16; TEMP 36.6; O2SAT 96
--- NOTE | 2020-05-25 11:36 | HO.CARDIVERS ---
Cardioversion Procedure Note Cardioversion Date of Procedure: 05/21/2020 Ordering Provider: Ricardo Lackey MD Performing Provider: Ricardo Lackey MD Indication for Procedure: Atrial fibrillation Pre-Op Diagnosis: Atrial fibrillation Post-Op Diagnosis: Atrial fibrillation Performed with Transesophageal Echo: No History: 80-year-old female with PAF and fatigue. Here for cardioversion. Consent: Verbal and Written consent was obtained from the patient before starting. The patient was made aware of the risk of [] Procedure: After consent obtained, defib pads were attached and the patient was sedated by the anesthesia team. Once adequate sedation achieved, The patient was given a single synchronized shock of 200 joules and she reverted to sinus rhythm. This was confirmed on EKG. She was left with Anesthesia in a stable condition for recovery. Complications: None Recommendations: See discharge note please.
== END 2020-05-21 09:59 | disposition home or self-care (01) ==
PROVIDERS: PCP Internal Medicine Medical Oncology; Visit Provider Internal Medicine Cardiovascular Disease
PROC: 5A2204Z Restoration of Cardiac Rhythm, Single (ICD-10-PCS; principal; 2020-05-21 08:30)
DX: I48.91 Unspecified atrial fibrillation (principal); I10 Essential (primary) hypertension; Z79.01 Long term (current) use of anticoagulants; Z79.899 Other long term (current) drug therapy
CPT/HCPCS: 92960; 93005

== ENCOUNTER 2020-05-27 12:00 | Inpatient (IN) | payer MEDICARE, SELFPAY ==
[2020-05-27] VITALS (10 sets, daily range): BP systolic 109–119; BP diastolic 55–76; PULSE 91–118; RESP 16–20; TEMP 36.3–36.7; O2SAT 95–99; BMI 25.6; BMI 25.7
--- NOTE | 2020-05-27 12:26 | ED_ITS ---
HPI - Arrhythmia/Palpitations General Chief Complaint: Arrhythmia/Palpitations Stated Complaint: afib Time Seen by Provider: 05/27/20 12:22 Source: patient Mode of arrival: ambulatory Limitations: no limitations History of Present Illness HPI narrative: 80-year-old female with a past medical history of COPD, hyperte nsion, atrial fibrillation, diverticulitis, breast cancer, chronic back pain, mitral regurgitation here with palpitations. The patient is on metoprolol for rate control and is anticoagulated with Eliquis. She was admitted 05/03 through 05/05 for AFib with RVR. She had a scheduled cardioversion 05/[address] Burns. patient tells me since Monday she has had symptoms of shortness of breath and palpitations which feels similar to when she is in AFib. She saw her interlocking and signal mechanic Dr. Montgomery yesterday and started a 5 day course of prednisone. He referred her back to her paintings restorer as he noted that she was in AFib. Patient does tell me that her dose of metoprolol was decreased last week from 50-25 mg daily. MD complaint: rapid heart beat Onset (ago): day(s) Duration: constant Severity: mild Context: change in medication (metoprolol dose changed ) Arrhythmia history: atrial fibrillation Associated symptoms: shortness of breath Related Data Home Medications Medication Instructions Recorded Confirmed Eliquis 5 mg PO BID 05/03/20 05/27/20 amlodipine 5 mg PO DAILY 05/03/20 05/27/20 irbesartan 150 mg PO DAILY 05/03/20 05/27/20 omeprazole 20 mg PO DAILY 05/03/20 05/27/20 prednisone 20 mg PO DAILY 05/27/20 05/27/20 Previous Rx's Medication Instructions Recorded dronedarone [Multaq] 400 mg PO BID #60 tab 05/21/20 metoprolol tartrate 25 mg PO BID #60 tab 05/21/20 Allergies Allergy/AdvReac Type Severity Reaction Status Date / Time No Known Allergies Allergy Verified 05/03/20 17:24 [No Known Allergies*] Review of Systems Review of Systems: Yes all other systems are reviewed and are negative Constitutional: Constitutional: Reports no additional constitutional complaints, Denies body ache(s), Denies chills, Denies fever(s), Denies headache(s) and Denies weakness Eyes: Eyes: Reports no additional eye complaints and Denies change in vision ENT: Reports system reviewed and no additional complaints, except as documented, Denies dizziness, Denies headache(s), Denies nasal congestion, Denies nasal discharge and Denies neck pain Cardiovascular: Cardiovascular: Reports no additional cardiovascular complaints, Denies chest pain, Reports rapid heart rate, Denies leg edema and Reports dyspnea Respiratory: Respiratory: Reports no additional respiratory complaints, Denies cough and Reports dyspnea Gastrointestinal: Gastrointestinal: Reports no additional gastrointestinal complaints, Denies abdominal pain, Denies diarrhea, Denies nausea and Denies vomiting Genitourinary: Genitourinary: Reports no additional female genitourinary com plaints and Denies urinary incontinence Musculoskeletal: Musculoskeletal: Reports no additional musculoskeletal complaints, Denies back pain, Denies arthralgias, Denies joint swelling, Denies neck pain, Denies numbness and Denies tingling Integumentary/Breasts: Skin/Breast: Reports system reviewed and no additional complaints, except as docu and Denies rash Neurologic: Reports system reviewed and no additional complaints, except as documented, Denies Abnormal speech present, Denies dizziness, Denies headache(s), Denies numbness, Denies tingling and Denies weakness PMFSH Past Medical History Attestation statement: The following information was validated with the patient. Source: obtained from family and nursing notes reviewed Medical History (Updated 05/27/20 @ 16:23 by DEISI Rasmussen) Afib Breast cancer Chronic back pain Diverticulitis HTN (hypertension) Mitral regurgitation Pulmonary hypertension Surgical History History of appendectomy History of bilateral knee replacement Status post right breast lumpectomy Family History Family History Father No problems noted. Mother No problems noted. Social History Social History (Updated 05/27/20 @ 16:25 by DEISI Rasmussen) Household Members: Spouse Housing: House Alcohol intake: current Alcohol intake frequency: a few times a week Alcohol type: wine Smoking Status: Former smoker Smoked in Last 30 Days: No Use of substances other than those prescribed or required for medical reasons: No Advance Directives: No Advance Directives Information Provided: No service: No Current occupational status: retired Physical Exam Vital Signs: Vital Signs: Vital Signs Temp Pulse Resp BP Pulse Ox 05/27/20 14:05 94 112/67 05/27/20 14:00 92 20 112/67 96 05/27/20 13:10 93 18 114/69 95 05/27/20 12:51 102 H 115/76 05/27/20 12:03 97.4 F 118 H 20 110/55 L 96 Body Mass Index 25.6 Const: General: cooperative, healthy appearing, comfortable and no acute distress Orientation/consciousness: patient oriented x3 Limitations: no limitations HENMT: Head: Yes normal to inspection Ears: hearing grossly normal bilater ally General nose exam: Normal external nose present Face and sinus: Yes normal facial exam Mouth: Normal oral and palatal mucosa present Throat: Yes posterior oropharynx normal Eyes: General: appearance normal, both eyes and all related structures Pupils: Equal, round and reactive pupils present Neck: Neck: Yes normal visual inspection Chest: Chest palpation & inspection: normal inspection of the chest Resp: Effort & Inspection: normal respiratory effort Auscultation: clear to auscultation bilaterally Cardio: Rate: tachycardic (irregularly irregular ) Rhythm: regular rhythm Peripheral pulses: Peripheral pulses 2+ throughout GI: Inspection: Yes normal to inspection Palpation (GI): Soft to palpation and nontender Auscultation: normal bowel sounds Back/Spine/Pelvis: Thoracic/Lumbar Spine: thoracic and lumbar spine normal to inspection Skin: General skin exam: no rashes or lesions noted Neuro: General: patient oriented x3, no focal motor deficits and normal sensation to monofilament Cranial nerves: Yes Equal, round and reactive pupils present Cognition (Neuro): normal cognition Speech: No Abnormal speech present Gait exam (Neuro): Normal gait present Motor exam (neuro): 5/5 motor strength present throughout Extrem: General: Yes normal to inspection Course Course Course Narrative: 80 yo female here with SOB, palpitations x 4 days. Feeling like she was in afib. Went to interlocking and signal mechanic and noted to be in afib so referred to paintings restorer. Recent cardioversion, did change beta manny dose. EKG shows afib, rate controlled however on monitor noted to have rate 100-120 on monitor with stable blood pressure. Will check labs, EKG, CXR, give one dose of cardizem and discuss with Dr Lackey paintings restorer. 1305-Spoke to patient's paintings restorer. He would like admission, cardioversion during admission. 1345- chest x-ray read as a possible left lower lobe infiltrate. I think pneumonia is less likely as the patient has no leukocytosis, fevers, chills. Will check CT chest to eval for pleural effusion vs PNA. 1500- CT chest shows no pneumonia. There are some new bilateral pulmonary nodules. New segmental atelectasis in the right middle and right lower lobe. New small bilateral pleural effusions. A large heart and coronary artery calcification and enlarged pulmonary arteries questionable for pulmonary artery hypertension. BNP today is 900. Patient has no clinical signs and symptoms of fluid overload. This BNP is actually lower than previous BNPs. Spoke to Dr Wu and recommended holding multaq, giving 20mg IV lasix. Will plan for admission. 1530-Discussed with Omaira LIPSCOMB who accepted admission. MDM - Arrhythmia/Palpitations Medical Records Attestation: I reviewed the patient's medical records. Lab Data Attestation: I reviewed the patient's lab results. Result diagrams: 05/27/20 12:45 05/27/20 12:45 Labs: Lab Results 05/27/20 05/27/20 05/27/20 Range/Units 12:45 12:45 12:45 WBC 6.7 (4.8-10.8) X10*3/uL RBC 4.15 L (4.20-5.50) X10*6/uL Hgb 12.6 (12.0-16.0) g/dl Hct 37.9 (37-47) % MCV 91.3 (80-98) fL MCH 30.4 (27.0-33.0) pg MCHC 33.2 (31.0-35.0) g/dl RDW 12.9 (11.0-16.0) % Plt Count 247 (160-400) X10*3/uL MPV 10.1 (9.4-12.3) fL Immature Gran % (Auto) 0.6 H (0.0-0.4) % Neut % (Auto) 83.0 H (45-73) % Lymph % (Auto) 12.0 L (20-40) % Tompkins % (Auto) 4.3 (2-11) % Eos % (Auto) 0.0 (0-4) % Baso % (Auto) 0.1 (0-2) % Lymph # (Auto) 0.8 L (1.2-4.9) X10*3/uL Tompkins # (Auto) 0.3 (0.1-1.2) X10*3/uL Eos # (Auto) 0.0 (0.0-0.4) X10*3/uL Baso # (Auto) 0.0 (0.0-0.2) X10*3/uL Abs Immat Gran (auto) 0.04 H (0.00-0.03) X10*3/uL Absolute Neuts (auto) 5.6 (2.0-8.3) X10*3/uL Absolute Nucleated RBC 0.000 (0.0-0.012) X10*3/uL Nucleated RBC % (auto) 0.0 (0.0-0.2) /100WBC PT (10.8-13.0) SEC INR (0.9-1.1) Sodium 137 (135-145) mmol/L Potassium 4.7 (3.3-5.1) mmol/l Chloride 109 H (96-108) mmol/L Carbon Dioxide 17 L (22-29) mmol/L Anion Gap 16 (12-20) BUN 19 H (9-16) mg/dL Creatinine 1.32 (0.5-1.4) mg/dL Estim Creat Clear Calc 29.2 Estimated GFR 39 Random Glucose 135 H (60-115) mg/dL Calcium 8.9 (8.4-10.2) mg/dL Magnesium 1.9 (1.6-2.6) mg/dL Troponin I High Sens 8.1 (<3.5-17.0) ng/L B-Natriuretic Peptide (<100) pg/mL Coronavirus (PCR) (Negative) 05/27/20 05/27/20 05/27/20 Range/Units 12:45 12:53 14:03 WBC (4.8-10.8) X10*3/uL RBC (4.20-5.50) X10*6/uL Hgb (12.0-16.0) g/dl Hct (37-47) % MCV (80-98) fL MCH (27.0-33.0) pg MCHC (31.0-35.0) g/dl RDW (11.0-16.0) % Plt Count (160-400) X10*3/uL MPV (9.4-12.3) fL Immature Gran % (Auto) (0.0-0.4) % Neut % (Auto) (45-73) % Lymph % (Auto) (20-40) % Tompkins % (Auto) (2-11) % Eos % (Auto) (0-4) % Baso % (Auto) (0-2) % Lymph # (Auto) (1.2-4.9) X10*3/uL Tompkins # (Auto) (0.1-1.2) X10*3/uL Eos # (Auto) (0.0-0.4) X10*3/uL Baso # (Auto) (0.0-0.2) X10*3/uL Abs Immat Gran (auto) (0.00-0.03) X10*3/uL Absolute Neuts (auto) (2.0-8.3) X10*3/uL Absolute Nucleated RBC (0.0-0.012) X10*3/uL Nucleated RBC % (auto) (0.0-0.2) /100WBC PT 23.3 H (10.8-13.0) SEC INR 1.9 H (0.9-1.1) Sodium (135-145) mmol/L Potassium (3.3-5.1) mmol/l Chloride (96-108) mmol/L Carbon Dioxide (22-29) mmol/L Anion Gap (12-20) BUN (9-16) mg/dL Creatinine (0.5-1.4) mg/dL Estim Creat Clear Calc Estimated GFR Random Glucose (60-115) mg/dL Calcium (8.4-10.2) mg/dL Magnesium (1.6-2.6) mg/dL Troponin I High Sens (<3.5-17.0) ng/L B-Natriuretic Peptide 908 H (<100) pg/mL Coronavirus (PCR) NEGATIVE (Negative) Imaging Data CT scan - chest: Radiologist's impression: EXAMINATION: CT CHEST WITHOUT CONTRAST CLINICAL INFORMATION: Shortness of breath. Follow-up abnormal chest x-ray. COMPARISON: Previous chest x-rays most recent from earlier the same day and chest CTA November 2018 TECHNIQUE: Multidetector volumetric CT imaging of the chest was done. Axial MIP volume rendering provided. Sagittal and coronal reformatted images were obtained. This CT examination was performed using dose optimization techniques as appropriate, variously including the following: *Automated exposure control *Adjustment of mA and/or kV according to patient size (this includes techniques or standardized protocols for targeted exams where dose is matched to indication/reason for exam; i.e. extremities or head) *Use of iterative reconstruction technique DLP: 236 mGy-cm FINDINGS: LUNGS: There is evidence of emphysema. There is a 3 x 9 mm peripheral or subpleural left upper lobe nodule axial image 94 series 5 that is new. There is a new heterogeneous 3 x 4 mm right lower lobe nodule axial image 254 series 5. There is a 6 mm peripheral or subpleural right lower lobe nodule with slightly spiculated margins that is new axial image 262 series 5. There is a heterogeneous groundglass attenuation peripheral or subpleural right upper lobe nodule adjacent to the minor fissure that measures 6 mm axial image 205 series 5. This is increased in size from 3 mm on previous exam. There is a 4 mm peripheral or subpleural left lower lobe nodule axial image 383 series 5 that is new. There are small bilateral calcified pulmonary nodules that are stable, largest measuring 4 mm axial image 219 series 5. There is subsegmental atelectasis in the medial segment of the right middle lobe and posterior basal segment of the right lower lobe that is new. No evidence of a pneumonia is seen. There is no endobronchial or endotracheal lesion. MEDIASTINUM: There are small mediastinal lymph nodes. No enlarged lymph nodes are seen. The heart does not appear enlarged. There is moderate coronary artery calcification. The thoracic aorta is normal in caliber. There is no pericardial effusion. The pulmonary arteries are prominent, main pulmonary artery measuring 3.4 cm. PLEURA: There are small bilateral pleural effusions. AXILLA: There are surgical clips in the right axilla. No enlarged axillary lymph nodes or chest wall mass is seen. UPPER ABDOMEN: There are numerable low-attenuation lesion seen liver. The largest measures 2.6 x 3.9 cm axial image 46 series 3. Larger lesions are compatible with cysts. There is increased attenuation in the gallbladder suggestive of gallstones. There is a small calcification in the upper pole of the right kidney suggestive of a stone. There is cortical thinning or scarring of the right kidney. There is diverticulosis of the colon. There is a duodenal diverticulum adjacent to the head of the pancreas. OSSEOUS STRUCTURES: Unremarkable. CT/CT chest wo con IMPRESSION: No evidence of pneumonia. Emphysema. New bilateral pulmonary nodules. New subsegmental atelectasis in the right middle lobe and right lower lobe. New small bilateral pleural effusions. Enlarged heart and coronary artery calcification. Enlarged pulmonary arteries questionable for pulmonary artery hypertension. Chest x-ray: Attestation: I personally reviewed and interpreted this imaging study as follows: Radiologist's impression: [address] [address] XRay Report Signed Patient: Dianne Carlson MMR#: [id number] : 1940Acct:[id number] Age/Sex: 80 / FADM Date: 05/27/20 Loc: .ED Attending Dr: Ordering Physician: YUDITH ZHONG NP Date of Service: 05/27/20 Procedure(s): XR chest 1V Accession Number(s): [id number] cc: YUDITH ZHONG NP~ EXAMINATION: XR CHEST CLINICAL INFORMATION: SOB. COMPARISON: Chest 05/03/2020 TECHNIQUE: Frontal view of the chest was obtained. FINDINGS: The lungs are well-expanded with patchy density seen in the left lower lobe retrocardiac area question atelectasis or infiltrate. Rest of lungs are clear and expanded. The heart size and pulmonary vascularity is normal. No gross bony abnormality seen. There are surgical june in the right axilla from previous intervention. XR/XR chest 1V IMPRESSION: Patchy atelectasis/infiltrate left lower lobe retrocardiac area. No acute process seen. ECG Data Attestation: I personally reviewed and interpreted this ECG as follows: ECG interpretation date: 05/27/20 ECG interpretation time: 12:08 Interpretation: afib with rate 90, normal pr, normal qrs, st depression v4-v6 un changed from previous 05/21/20 Discharge Plan Discharge Clinical Impression: Atrial fibrillation, Congestive heart failure Patient Disposition: Admitted As Inpatient
--- NOTE | 2020-05-27 12:38 | ECG_ITS ---
Test Reason : A FIB Blood Pressure : / mmHG Vent. Rate : 093 BPM Atrial Rate : 110 BPM P-R Int : 000 ms QRS Dur : 076 ms QT Int : 358 ms P-R-T Axes : 000 -03 -58 degrees QTc Int : 445 ms Atrial fibrillation Low voltage QRS ST & T wave abnormality, consider anterolateral ischemia Abnormal ECG When compared with ECG of 21-MAY-2020 09:03, Atrial fibrillation has replaced Sinus rhythm Vent. rate has increased BY 38 BPM Referred By: Joanna Perez Electronically Signed By:NEEMA VALADEZ MD
--- NOTE | 2020-05-27 12:38 | XR_ITS ---
EXAMINATION: XR CHEST CLINICAL INFORMATION: SOB. COMPARISON: Chest 05/03/2020 TECHNIQUE: Frontal view of the chest was obtained. FINDINGS: The lungs are well-expanded with patchy density seen in the left lower lobe retrocardiac area question atelectasis or infiltrate. Rest of lungs are clear and expanded. The heart size and pulmonary vascularity is normal. No gross bony abnormality seen. There are surgical june in the right axilla from previous intervention. XR/XR chest 1V IMPRESSION: Patchy atelectasis/infiltrate left lower lobe retrocardiac area. No acute process seen.
[2020-05-27] MEDS: dilTIAZem HCL 50 MG/10 ML VIAL 10 MG IVPUSH (12:51)
[2020-05-27 12:52] LABS: Basophils Percent Auto 0.1 % (0-2); Hematocrit 37.9 % (37-47); Hemoglobin 12.6 g/dl (12.0-16.0); Imm Gran Abs Auto 0.04 X10*3/uL (0.00-0.03); Imm Gran Pct Auto 0.6 % (0.0-0.4); Lymphocytes Absolute Auto 0.8 X10*3/uL (1.2-4.9); MANUAL DIFF FLAG NO; Mean Corpuscular HGB Conc 33.2 g/dl (31.0-35.0); Mean Corpuscular Hemoglobin 30.4 pg (27.0-33.0); Mean Corpuscular Volume 91.3 fL (80-98); Mean Platelet Volume 10.1 fL (9.4-12.3); Monocytes Absolute Auto 0.3 X10*3/uL (0.1-1.2); Monocytes Percent Auto 4.3 % (2-11); Neutrophils Absolute Auto 5.6 X10*3/uL (2.0-8.3); Platelet Count 247 X10*3/uL (160-400); Red Blood Count 4.15 X10*6/uL (4.20-5.50); Red Cell Distribution Width 12.9 % (11.0-16.0); White Blood Count 6.7 X10*3/uL (4.8-10.8)
[2020-05-27 13:22] LABS: INTERNATIONAL NORM RATIO 1.9 (0.9-1.1); Prothrombin Time 23.3 SEC (10.8-13.0)
[2020-05-27 13:24] LABS: Troponin-I High Sensitivity 8.1 ng/L (<3.5-17.0)
[2020-05-27 13:26] LABS: Anion Gap 16 (12-20); Blood Urea Nitrogen 19 mg/dL (9-16); Calcium 8.9 mg/dL (8.4-10.2); Carbon Dioxide 17 mmol/L (22-29); Chloride 109 mmol/L (96-108); Creatinine Clr Calc Pharmacy 29.2; Estimated Glomerular Filt Rate 39; Glucose Random 135 mg/dL (60-115); Magnesium 1.9 mg/dL (1.6-2.6); Potassium 4.7 mmol/l (3.3-5.1); Sodium 137 mmol/L (135-145)
--- NOTE | 2020-05-27 13:43 | CT_ITS ---
EXAMINATION: CT CHEST WITHOUT CONTRAST CLINICAL INFORMATION: Shortness of breath. Follow-up abnormal chest x-ray. COMPARISON: Previous chest x-rays most recent from earlier the same day and chest CTA November 2018 TECHNIQUE: Multidetector volumetric CT imaging of the chest was done. Axial MIP volume rendering provided. Sagittal and coronal reformatted images were obtained. This CT examination was performed using dose optimization techniques as appropriate, variously including the following: *Automated exposure control *Adjustment of mA and/or kV according to patient size (this includes techniques or standardized protocols for targeted exams where dose is matched to indication/reason for exam; i.e. extremities or head) *Use of iterative reconstruction technique DLP: 236 mGy-cm FINDINGS: LUNGS: There is evidence of emphysema. There is a 3 x 9 mm peripheral or subpleural left upper lobe nodule axial image 94 series 5 that is new. There is a new heterogeneous 3 x 4 mm right lower lobe nodule axial image 254 series 5. There is a 6 mm peripheral or subpleural right lower lobe nodule with slightly spiculated margins that is new axial image 262 series 5. There is a heterogeneous groundglass attenuation peripheral or subpleural right upper lobe nodule adjacent to the minor fissure that measures 6 mm axial image 205 series 5. This is increased in size from 3 mm on previous exam. There is a 4 mm peripheral or subpleural left lower lobe nodule axial image 383 series 5 that is new. There are small bilateral calcified pulmonary nodules that are stable, largest measuring 4 mm axial image 219 series 5. There is subsegmental atelectasis in the medial segment of the right middle lobe and posterior basal segment of the right lower lobe that is new. No evidence of a pneumonia is seen. There is no endobronchial or endotracheal lesion. MEDIASTINUM: There are small mediastinal lymph nodes. No enlarged lymph nodes are seen. The heart does not appear enlarged. There is moderate coronary artery calcification. The thoracic aorta is normal in caliber. There is no pericardial effusion. The pulmonary arteries are prominent, main pulmonary artery measuring 3.4 cm. PLEURA: There are small bilateral pleural effusions. AXILLA: There are surgical clips in the right axilla. No enlarged axillary lymph nodes or chest wall mass is seen. UPPER ABDOMEN: There are numerable low-attenuation lesion seen liver. The largest measures 2.6 x 3.9 cm axial image 46 series 3. Larger lesions are compatible with cysts. There is increased attenuation in the gallbladder suggestive of gallstones. There is a small calcification in the upper pole of the right kidney suggestive of a stone. There is cortical thinning or scarring of the right kidney. There is diverticulosis of the colon. There is a duodenal diverticulum adjacent to the head of the pancreas. OSSEOUS STRUCTURES: Unremarkable. CT/CT chest wo con IMPRESSION: No evidence of pneumonia. Emphysema. New bilateral pulmonary nodules. New subsegmental atelectasis in the right middle lobe and right lower lobe. New small bilateral pleural effusions. Enlarged heart and coronary artery calcification. Enlarged pulmonary arteries questionable for pulmonary artery hypertension.
--- NOTE | 2020-05-27 13:50 | PC.NURSE ---
pt off to CT
[2020-05-27 14:29] LABS: B Type Natriuretic Peptide 908 pg/mL (<100)
[2020-05-27 15:20] LABS: SARS COV2 PCR INHOUSE NEGATIVE (Negative)
[2020-05-27] MEDS: Furosemide 20 MG/2 ML VIAL IVPUSH (15:44)
--- NOTE | 2020-05-27 16:06 | PM.EVENT ---
Event Note Event Note: 80 y o f presented with worsening sob and chest tightness found to have afib with RVR , patient was recently cardioverted on May 21, patient seen and examined at bedside on exam alert abd soft CVS irregular rhythm , lungs basilar rhonchi admitted for afib with RVR recieved 1 dose of i/v cardizem , continue lopressor , eliquis monitor on telemetry , discussed with cardiology plan for cardioversion tomorrow Patient seen and examined with the midlevel agree with H&P assessment and plan
--- NOTE | 2020-05-27 16:17 | P.HPIM_ITS ---
History of Present Illness Date of Service: 05/27/20 Chief Complaint: shortness of breath this is an 80-year-old female with a history of atrial fibrillation who presents to the emergency department with shortness of breath. She reports dyspnea most part with minimal activity. This is associated with chest tig htness. She denies any significant palpitations. She was admitted from May 03 to May 05 with rapid atrial fibrillation. At that time she was started on digoxin. She followed up in the Cardiology office on May 15 at that time her digoxin was discontinued and plans were made for outpatient cardioversion. She underwent cardioversion on May 21 with successful return to normal sinus rhythm. She had a followup appointment with her rod bending machine operator yesterday who recommended that she returned to see her college or university registrar. She was also placed on prednisone taper. Today she was told to come to the emergency department by the cardiology office. She was initially noted to be in atrial fibrillation with rapid ventricular response with a heart rate of 118. She was given a dose of IV Cardizem and her heart rate improved to the 90s. Her BNP was 908 and she was given a dose of IV Lasix. The case is discussed with the college or university registrar who wanted her admitted for possible cardiove rsion in the morning. [facility] Medical History (Updated 05/27/20 @ 16:23 by DEISI Rasmussen) Afib Breast cancer Chronic back pain Diverticulitis HTN (hypertension) Mitral regurgitation Pulmonary hypertension Functional capacity: independent ambulation Family History Father No problems noted. Mother No problems noted. Surgical History History of appendectomy History of bilateral knee replacement Status post right breast lumpectomy Social History (Updated 05/27/20 @ 16:25 by DEISI Rasmussen) Household Members: Spouse Housing: House Alcohol intake: current Alcohol intake frequency: a few times a week Alcohol type: wine Smoking Status: Former smoker Smoked in Last 30 Days: No Use of substances other than those prescribed or required for medical reasons: No Advance Directives: No Advance Directives Information Provided: No service: No Current occupational status: retired Meds Allergies Allergy/AdvReac Type Severity Reaction Status Date / Time No Known Allergies Allergy Verified 05/03/20 17:24 [No Known Allergies*] Home Medications Medication Instructions Recorded Confirmed Type Eliquis 5 mg PO BID 05/03/20 05/27/20 History amlodipine 5 mg PO DAILY 05/03/20 05/27/20 History irbesartan 150 mg PO DAILY 05/03/20 05/27/20 History omeprazole 20 mg PO DAILY 05/03/20 05/27/20 History prednisone 20 mg PO DAILY 05/27/20 05/27/20 History Physical Exam Vital Signs and Narrative: Vital Signs: Last Vital Signs Temp 97.4 F 05/27/20 12:03 Pulse 94 05/27/20 14:05 Resp 20 05/27/20 14:00 BP 112/67 05/27/20 14:05 Pulse Ox 96 05/27/20 14:00 Body Mass Index 25.6 Const: Nutritional Appearance: well nourished Orientation/consciousness: patient oriented x3 HENMT: Head: Yes normocephalic and Yes atraumatic Eyes: Sclerae: sclerae normal Chest: Chest palpation & inspection: normal inspection of the chest Resp: Effort & Inspection: normal respiratory effort and no respiratory distress Auscultation: clear to auscultation bilaterally Cardio: Rate: tachycardic Rhythm: abnormal rhythm irregularly irregular GI: Palpation (GI): Soft to palpation and nontender Skin: General skin exam: no rashes or lesions noted Neuro: General: patient oriented x3 Cranial nerves: Yes CN's II-XII intact bilaterally and Yes Bilaterally intact EOM present Extrem: General: Yes normal to inspection Results Labs Labs: Laboratory Tests 05/27/20 05/27/20 05/27/20 12:45 12:45 12:45 WBC 6.7 RBC 4.15 L Hgb 12.6 Hct 37.9 MCV 91.3 MCH 30.4 MCHC 33.2 RDW 12.9 Plt Count 247 MPV 10.1 Immature Gran % (Auto) 0.6 H Neut % (Auto) 83.0 H Lymph % (Auto) 12.0 L [place] % (Auto) 4.3 Eos % (Auto) 0.0 Baso % (Auto) 0.1 Lymph # (Auto) 0.8 L [place] # (Auto) 0.3 Eos # (Auto) 0.0 Baso # (Auto) 0.0 Abs Immat Gran (auto) 0.04 H Absolute Neuts (auto) 5.6 Absolute Nucleated RBC 0.000 Nucleated RBC % (auto) 0.0 PT INR Sodium 137 Potassium 4.7 Chloride 109 H Carbon Dioxide 17 L Anion Gap 16 BUN 19 H Creatinine 1.32 Estim Creat Clear Calc 29.2 Estimated GFR 39 Random Glucose 135 H Calcium 8.9 Magnesium 1.9 Troponin I High Sens 8.1 B-Natriuretic Peptide Coronavirus (PCR) 05/27/20 05/27/20 05/27/20 12:45 12:53 14:03 WBC RBC Hgb Hct MCV MCH MCHC RDW Plt Count MPV Immature Gran % (Auto) Neut % (Auto) Lymph % (Auto) [place] % (Auto) Eos % (Auto) Baso % (Auto) Lymph # (Auto) [place] # (Auto) Eos # (Auto) Baso # (Auto) Abs Immat Gran (auto) Absolute Neuts (auto) Absolute Nucleated RBC Nucleated RBC % (auto) PT 23.3 H INR 1.9 H Sodium Potassium Chloride Carbon Dioxide Anion Gap BUN Creatinine Estim Creat Clear Calc Estimated GFR Random Glucose Calcium Magnesium Troponin I High Sens B-Natriuretic Peptide 908 H Coronavirus (PCR) NEGATIVE Assessment and Plan (1) Atrial fibrillation with rapid ventricular response: Status: Acute this is a an 80-year-old female with history of atrial fibrillation on Eliquis hypertension, mitral regurgitation, pulmonary hypertension, recent admission for rapid atrial fibrillation who presents with shortness of breath found to be in AFib with RVR AFib with RVR - discontinue Multaq per Cardiology request - continue home dose of metoprolol - continue anticoagulation with Eliquis - possible cardioversion in the a.m. - NPO at midnight - cardiology consult elevated BNP received 1 dose of IV Lasix in the ED we will hold off on further diuresis for now hypertension -continue formulary equivalent for irbesartan, Norvasc pulmonary nodules - outpatient followup COPD was started on outpatient prednisone for 7 days, will continue DVT prophylaxis- Eliquis code status- full code
[2020-05-27 19:15] LABS: Troponin-I High Sensitivity 8.6 ng/L (<3.5-17.0)
[2020-05-27] MEDS: 0.9 % Sodium Chloride Flush 3 ML SYRINGE IVFLUSH (20:39)
[2020-05-27] MEDS: Metoprolol Tartrate 25 MG TABLET PO (20:39)
[2020-05-27] MEDS: Apixaban 5 MG TABLET PO (20:39)
[2020-05-28] VITALS (10 sets, daily range): BP systolic 104–132; BP diastolic 61–82; PULSE 70–120; RESP 18–20; TEMP 36.6–36.9; O2SAT 93–96
[2020-05-28] MEDS: 0.9 % Sodium Chloride Flush 3 ML SYRINGE IVFLUSH ×4 (00:27→21:04)
[2020-05-28 06:17] LABS: Hematocrit 33.7 % (37-47); Hemoglobin 11.5 g/dl (12.0-16.0); Mean Corpuscular HGB Conc 34.1 g/dl (31.0-35.0); Mean Corpuscular Hemoglobin 31.4 pg (27.0-33.0); Mean Corpuscular Volume 92.1 fL (80-98); Mean Platelet Volume 10.3 fL (9.4-12.3); Platelet Count 209 X10*3/uL (160-400); Red Blood Count 3.66 X10*6/uL (4.20-5.50); Red Cell Distribution Width 12.8 % (11.0-16.0); White Blood Count 7.9 X10*3/uL (4.8-10.8)
[2020-05-28 06:49] LABS: Anion Gap 15 (12-20); Blood Urea Nitrogen 21 mg/dL (9-16); Carbon Dioxide 19 mmol/L (22-29); Chloride 109 mmol/L (96-108); Creatinine Clr Calc Pharmacy 33.6; Estimated Glomerular Filt Rate 45; Glucose Random 106 mg/dL (60-115); Potassium 3.9 mmol/l (3.3-5.1); Sodium 139 mmol/L (135-145)
--- NOTE | 2020-05-28 08:33 | P.CDIC_ITS ---
CDI Concurrent Query Service Date: 05/28/20 Documentation Clarification: Please clarify if you are treating a proba ble/suspected/likely or confirmed: Acute on chronic diastolic and/or systolic Congestive heart failure (txt, rule out) Chronic diastolic and/or systolic Congestive heart failure Acute diastolic and/or systolic Congestive heart failure Please specify if known Provider Response: Acute on Chronic Diastolic and/or Systolic CHF PLEASE DO NOT DELETE/MODIFY EXISTING CONTENT Additional information is needed in order to code to the highest accuracy and appropriate Severity of Illness (SOI). Please clarify the information noted below in your progress notes and discharge summary. Risk Factors/Clinical Indicators/Treatments Ed: Clinical impression - CHF, Atrial fibrillation IV 20mg Lasix BNP 908 H Cardiology consult no clinical signs of fluid overload. CDS: Marietta Kyle CCS, [facility] Contact Number: [phone] Please Review the information above and exercise your independent professional judgment in responding to the query. If you concur, pleas document in the PROGRESS NOTES and DISCHARGE SUMMARY. If you do not agree with the query, please document in the query above. THIS QUERY IS PART OF THE PERMANENT MEDICAL RECORD
--- NOTE | 2020-05-28 08:53 | MHC.CM.PN ---
CM met with Patient. Patient lives in a mobile home with her and she is functionally independent. Patient's goal is to return home and CM has initiated and will follow for dc planning. IMM addressed with Patient and the original has been given to her and a copy has been placed on the chart.Patient's Daughter/Fang Hyatt is her HCP and her PCP is Dr. Tavo Jain.
[2020-05-28] MEDS: Metoprolol Tartrate 25 MG TABLET PO ×2 (10:32→21:02)
[2020-05-28] MEDS: Amiodarone HCL 200 MG TABLET 400 MG PO ×3 (10:32→21:01)
[2020-05-28] MEDS: Apixaban 5 MG TABLET PO ×2 (10:33→21:01)
[2020-05-28] MEDS: predniSONE 20 MG TABLET PO (10:33)
[2020-05-28] MEDS: amLODIPine Besylate 5 MG TABLET PO (10:33)
[2020-05-28] MEDS: Valsartan 80 MG TABLET PO (10:33)
[2020-05-28] MEDS: Omeprazole 20 MG CAPSULE.DR PO (10:33)
[2020-05-28] MEDS: Furosemide 20 MG/2 ML VIAL IVPUSH ×2 (10:33→21:02)
--- NOTE | 2020-05-28 10:51 | PM.CNCAR ---
History of Present Illness History of Present Illness Date of Consult: May 28, 2020 Requesting physician: Khai Castañeda Consult reason: atrial fibrillation and congestive heart failure Chief complaint: afib rvr Narrative: Pleasant 80-year-old female with background history of COPD, paroxysmal atrial fibrillation, mitral regurgitation, hypertension, diverticulitis, breast cancer and chronic low back pain. She was recently seen in our office and scheduled to undergo cardioversion which was successfully performed last week. She left the hospital in sinus rhythm feeling well. She said over the weekend she started feeling palpitations and dyspnea and then went to see her irrigation equipment mechanic who told her that she has dyspnea not due to lung issues but due to her atrial fibrillation. She subsequently saw Dr. Grossman who got in touch with me that she is significantly short of breath. We decided to bring her to the ER and admitted her. She had CT scan of her chest which showed bilateral effusions as well as emphysema. She has been atrial fibrillation rapid ventricular response. After cardioversion I put her on Multaq which she received yesterday morning. Given heart failure Multaq cannot be continued anymore. She was given IV 20 mg Lasix yesterday and she feels much better today and is saying her breathing is much better than yesterday. No other issues. She has been taking Eliquis without any interruption. Review of Systems Review of Systems: Dyspnea, fatigue Yes all other systems are reviewed and are negative Constitutional: Constitutional: Denies headache(s) and Denies weakness ENT: Denies dizziness and Denies headache(s) Musculoskeletal: Musculoskeletal: Denies numbness and Denies tingling Neurologic: Reports system reviewed and no additional complaints, except as documented, Denies Abnormal speech present, Denies dizziness, Denies headache(s), Denies numbness, Denies tingling and Denies weakness [facility] Past Medical History Medical History Afib Breast cancer Chronic back pain Diverticulitis HTN (hypertension) Mitral regurgitation Pulmonary hypertension Functional capacity: independent ambulation Family History Family History Father No problems noted. Mother No problems noted. Surgical History Surgical History History of appendectomy History of bilateral knee replacement Status post right breast lumpectomy Social History Social History (Updated 05/27/20 @ 16:25 by DEISI Rasmussen) Household Members: Spouse Housing: House Alcohol intake: current Alcohol intake frequency: a few times a week Alcohol type: wine Smoking Status: Former smoker Smoked in Last 30 Days: No Use of substances other than those prescribed or required for medical reasons: No Currently Displaying Signs/Symptoms of Drug Intoxication Withdrawal: No Have you been hit, kicked, punched, or otherwise hurt by someone within the past year? If so, by whom?: No Advance Directives: No Advance Directives Information Provided: No Do you have thoughts of harming others: None Recently lost weight without trying: No service: No Current occupational status: retired [employer] Allergies Allergy/AdvReac Type Severity Reaction Status Date / Time No Known Allergies Allergy Verified 05/03/20 17:24 [No Known Allergies*] Home Medications Medication Instructions Recorded Confirmed Type Eliquis 5 mg PO BID 05/03/20 05/27/20 History amlodipine 5 mg PO DAILY 05/03/20 05/27/20 History irbesartan 150 mg PO DAILY 05/03/20 05/27/20 History omeprazole 20 mg PO DAILY 05/03/20 05/27/20 History prednisone 20 mg PO DAILY 05/27/20 05/27/20 History Physical Exam Vital Signs: Vital Signs: Vital Signs Temp Pulse Resp BP Pulse Ox 05/28/20 10:33 96 132/82 05/28/20 10:32 96 132/82 05/28/20 07:56 98.5 F 96 18 132/82 94 05/28/20 04:00 97.8 F 105 H 20 122/73 95 05/28/20 00:00 98.0 F 96 18 106/70 93 05/27/20 22:00 99 05/27/20 19:49 98.1 F 105 H 18 113/60 95 05/27/20 18:40 98 F 91 18 115/65 95 05/27/20 17:47 98.1 F 110 H 18 119/72 99 05/27/20 16:26 98.1 F 103 H 16 109/76 98 05/27/20 14:05 94 112/67 05/27/20 14:00 92 20 112/67 96 05/27/20 13:10 93 18 114/69 95 05/27/20 12:51 102 H 115/76 05/27/20 12:03 97.4 F 118 H 20 110/55 L 96 Body Mass Index 25.7 GENERAL APPEARANCE: in no acute distress, well developed, well nourished. HEENT: unremarkable. HEAD: normocephalic, atraumatic. NECK/THYROID: no carotid bruit, JVD 12 cm water. SKIN: no suspicious lesions, warm and dry. HEART: no murmurs, irregularly irregular rhythm, S1, S2 normal. LUNGS: clear to auscultation bilaterally. ABDOMEN: normal, bowel sounds present, soft, nontender, nondistended. EXTREMITIES: no clubbing, cyanosis, or edema. PERIPHERAL PULSES: equal. NEUROLOGIC: nonfocal, alert and oriented. PSYCH: mood/affect full range. Neuro: Speech: No Abnormal speech present Results Labs and Meds Result diagrams: 05/28/20 05:44 05/28/20 05:44 Lab results: Laboratory Results - last 24 hr 05/27/20 05/27/20 05/27/20 12:45 12:45 12:45 WBC 6.7 RBC 4.15 L Hgb 12.6 Hct 37.9 MCV 91.3 MCH 30.4 MCHC 33.2 RDW 12.9 Plt Count 247 MPV 10.1 Immature Gran % (Auto) 0.6 H Neut % (Auto) 83.0 H Lymph % (Auto) 12.0 L [place] % (Auto) 4.3 Eos % (Auto) 0.0 Baso % (Auto) 0.1 Lymph # (Auto) 0.8 L [place] # (Auto) 0.3 Eos # (Auto) 0.0 Baso # (Auto) 0.0 Abs Immat Gran (auto) 0.04 H Absolute Neuts (auto) 5.6 Absolute Nucleated RBC 0.000 Nucleated RBC % (auto) 0.0 PT INR Sodium 137 Potassium 4.7 Chloride 109 H Carbon Dioxide 17 L Anion Gap 16 BUN 19 H Creatinine 1.32 Estim Creat Clear Calc 29.2 Estimated GFR 39 Random Glucose 135 H Calcium 8.9 Magnesium 1.9 Troponin I High Sens 8.1 B-Natriuretic Peptide Coronavirus (PCR) 05/27/20 05/27/20 05/27/20 12:45 12:53 14:03 WBC RBC Hgb Hct MCV MCH MCHC RDW Plt Count MPV Immature Gran % (Auto) Neut % (Auto) Lymph % (Auto) [place] % (Auto) Eos % (Auto) Baso % (Auto) Lymph # (Auto) [place] # (Auto) Eos # (Auto) Baso # (Auto) Abs Immat Gran (auto) Absolute Neuts (auto) Absolute Nucleated RBC Nucleated RBC % (auto) PT 23.3 H INR 1.9 H Sodium Potassium Chloride Carbon Dioxide Anion Gap BUN Creatinine Estim Creat Clear Calc Estimated GFR Random Glucose Calcium Magnesium Troponin I High Sens B-Natriuretic Peptide 908 H Coronavirus (PCR) NEGATIVE 05/27/20 05/28/20 05/28/20 18:10 05:44 05:44 WBC 7.9 RBC 3.66 L Hgb 11.5 L Hct 33.7 L MCV 92.1 MCH 31.4 MCHC 34.1 RDW 12.8 Plt Count 209 MPV 10.3 Immature Gran % (Auto) Neut % (Auto) Lymph % (Auto) [place] % (Auto) Eos % (Auto) Baso % (Auto) Lymph # (Auto) [place] # (Auto) Eos # (Auto) Baso # (Auto) Abs Immat Gran (auto) Absolute Neuts (auto) Absolute Nucleated RBC 0.000 Nucleated RBC % (auto) 0.0 PT INR Sodium 139 Potassium 3.9 Chloride 109 H Carbon Dioxide 19 L Anion Gap 15 BUN 21 H Creatinine 1.15 Estim Creat Clear Calc 33.6 Estimated GFR 45 Random Glucose 106 Calcium 8.0 L Magnesium Troponin I High Sens 8.6 B-Natriuretic Peptide Coronavirus (PCR) Assessment and Plan (1) Atrial fibrillation: Status: Acute (2) Congestive heart failure: Status: Acute (3) Mitral regurgitation: Status: Acute pleasant 80-year-old female with background of paroxysmal atrial fibrillation and dyspnea / fatigue. She recently underwent cardioversion for fatigue and atrial fibrillation. She was started on Multaq after that. It appears over the weekend she started feeling more dyspnea and palpitations and was admitted to hospital for AFib with RVR. She was in clinical heart failure. She received IV diuretics. I think we give her more IV diuretics right now I will give her Lasix 20 mg IV. She definitely has felt better with diuresis. In terms of her rhythm control strategy the medication choice is limited. I do not want to use any flecainide/propafenone. Due to her creatinine clearance sotalol is not a good option. Multaq cannot be used because of heart failure. She has COPD but I think only option is amiodarone. I am starting her on 400 mg 3 times a day amiodarone load. We will plan cardioversion later today or tomorrow. If she did not get a slot today then we will feed her. Blood pressure control is reasonable currently. No medication changes are required for that. She has moderate mitral regurgitation with severe mitral annular calcification. With her recurrent episodes of AFib I wonder if her mitral regurgitation is worse. After cardioversion we will do an echocardiogram on her to reassess mitral valve regurgitation. This is due to severe calcification of the mitral valve and usually surgical options are limited in this situation. Thank you for allowing me to participate in the care of your patient. Please feel free to contact me if you have any questions.
--- NOTE | 2020-05-28 13:36 | HO.PM.IMPN ---
Subjective Subjective Date of Service: 05/28/20 Interval History: patient seen and examined at bedside patient reported some improvement in shortness of breath Physical Exam Vital Signs: Vital Signs: Vital Signs Temp Pulse Resp BP Pulse Ox 05/28/20 11:24 98.4 F 70 18 111/75 96 05/28/20 10:33 96 132/82 05/28/20 10:32 96 132/82 05/28/20 07:56 98.5 F 96 18 132/82 94 05/28/20 04:00 97.8 F 105 H 20 122/73 95 05/28/20 00:00 98.0 F 96 18 106/70 93 05/27/20 22:00 99 05/27/20 19:49 98.1 F 105 H 18 113/60 95 05/27/20 18:40 98 F 91 18 115/65 95 05/27/20 17:47 98.1 F 110 H 18 119/72 99 05/27/20 16:26 98.1 F 103 H 16 109/76 98 05/27/20 14:05 94 112/67 05/27/20 14:00 92 20 112/67 96 Body Mass Index 25.7 Const: Nutritional Appearance: well nourished Orientation/consciousness: patient oriented x3 HENMT: Head: Yes normocephalic and Yes atraumatic Eyes: Sclerae: sclerae normal Chest: Chest palpation & inspection: normal inspection of the chest Resp: Effort & Inspection: normal respiratory effort and no respiratory distress Auscultation: clear to auscultation bilaterally Cardio: Rate: tachycardic Rhythm: abnormal rhythm irregularly irregular GI: Palpation (GI): Soft to palpation and nontender Skin: General skin exam: no rashes or lesions noted Neuro: General: patient oriented x3 Cranial nerves: Yes CN's II-XII intact bilaterally and Yes Bilaterally intact EOM present Extrem: General: Yes normal to inspection Objective Data Current Medications Generic Name Dose Route Start Last Admin Trade Name Freq PRN Reason Stop Dose Admin Acetaminophen 650 mg 05/27/20 17:52 Acetaminophen 325 Mg Tablet PO Q6H PRN Pain, Mild (Pain Scale 1-3) Amiodarone HCl 400 mg 05/28/20 09:45 05/28/20 10:32 Amiodarone Hcl 200 Mg Tablet PO 400 mg TID JULIO Administration Amlodipine Besylate 5 mg 05/28/20 09:00 05/28/20 10:33 Amlodipine Besylate 5 Mg Tablet PO 5 mg DAILY JULIO Administration Protocol Apixaban 5 mg 05/27/20 21:00 05/28/20 10:33 Apixaban 5 Mg Tablet PO 5 mg BID JULIO Administration Docusate Sodium 100 mg 05/27/20 17:52 Docusate Sodium 100 Mg Capsule PO DAILY PRN Constipation Furosemide 20 mg 05/28/20 10:00 05/28/20 10:33 Furosemide 20 Mg/2 Ml Vial IVPUSH 20 mg Q12H JULIO Administration Protocol Metoprolol Tartrate 25 mg 05/27/20 21:00 05/28/20 10:32 Metoprolol Tartrate 25 Mg Tablet PO 25 mg BID JULIO Administration Protocol Omeprazole 20 mg 05/28/20 09:00 05/28/20 10:33 Omeprazole 20 Mg Capsule.Dr PO 20 mg DAILY JULIO Administration Ondansetron HCl 4 mg 05/27/20 17:52 Ondansetron Hcl 4 Mg/2 Ml Vial IVPUSH Q8H PRN Nausea and Vomiting Pharmacy Consult 1 each 05/27/20 13:03 Consult Rx Perform Med Rec MISCELLANE ONCE PRN Consult order Prednisone 20 mg 05/28/20 09:00 05/28/20 10:33 Prednisone 20 Mg Tablet PO 20 mg DAILY JULIO Administration Sodium Chloride 3 ml 05/27/20 17:52 05/28/20 10:33 0.9 % Sodium Chloride Flush 3 Ml Syringe IVFLUSH 3 ml QSHIFT JULIO Administration Valsartan 80 mg 05/28/20 09:00 05/28/20 10:33 Valsartan 80 Mg Tablet PO 80 mg DAILY JULIO Administration Labs CBC & Chem 7: 05/28/20 05:44 05/28/20 05:44 Labs: Laboratory Results - last 24 hr 05/27/20 05/27/20 05/27/20 12:53 14:03 18:10 WBC RBC Hgb Hct MCV MCH MCHC RDW Plt Count MPV Absolute Nucleated RBC Nucleated RBC % (auto) Sodium Potassium Chloride Carbon Dioxide Anion Gap BUN Creatinine Estim Creat Clear Calc Estimated GFR Random Glucose Calcium Troponin I High Sens 8.6 B-Natriuretic Peptide 908 H Coronavirus (PCR) NEGATIVE 05/28/20 05/28/20 05:44 05:44 WBC 7.9 RBC 3.66 L Hgb 11.5 L Hct 33.7 L MCV 92.1 MCH 31.4 MCHC 34.1 RDW 12.8 Plt Count 209 MPV 10.3 Absolute Nucleated RBC 0.000 Nucleated RBC % (auto) 0.0 Sodium 139 Potassium 3.9 Chloride 109 H Carbon Dioxide 19 L Anion Gap 15 BUN 21 H Creatinine 1.15 Estim Creat Clear Calc 33.6 Estimated GFR 45 Random Glucose 106 Calcium 8.0 L Troponin I High Sens B-Natriuretic Peptide Coronavirus (PCR) Assessment and Plan (1) Atrial fibrillation with rapid ventricular response: Status: Acute Assessment and Plan: 80-year-old female with history of atrial fibrillation on Eliquis hypertension, mitral regurgitation, pulmonary hypertension, recent admission for rapid atrial fibrillation who presents with shortness of breath found to be in AFib with RVR AFib with RVR still in AFib continue Eliquis started on amiodarone per Cardiology continue Lopressor plan for cardioversion today Acute on chronic diastolic CHF exacerbation continue IV Lasix fluid restriction monitor intake output Hypertension continue formulary equivalent for irbesartan, continue Norvasc Pulmonary nodules outpatient followup with pulmonology COPD was started on outpatient prednisone for 7 days, continue prednisone DVT prophylaxis- Eliquis
[2020-05-29] VITALS (13 sets, daily range): BP systolic 88–126; BP diastolic 50–85; PULSE 49–107; RESP 16–21; TEMP 36–36.6; O2SAT 95–99; BMI 24.7
--- NOTE | 2020-05-29 | ECG_ITS ---
Test Reason : S/PCARDIOVERSION Blood Pressure : / mmHG Vent. Rate : 050 BPM Atrial Rate : 050 BPM P-R Int : 222 ms QRS Dur : 090 ms QT Int : 468 ms P-R-T Axes : 039 -03 -33 degrees QTc Int : 426 ms Sinus bradycardia with 1st degree A-V block Low voltage QRS ST & T wave abnormality, consider anterior ischemia Abnormal ECG When compared with ECG of 27-MAY-2020 12:08, Sinus rhythm has replaced Atrial fibrillation Vent. rate has decreased BY 43 BPM Referred By: Ricardo Lackey Electronically Signed By:NEEMA VALADEZ MD
[2020-05-29] MEDS: Metoprolol Tartrate 25 MG TABLET PO (08:10)
[2020-05-29] MEDS: Amiodarone HCL 200 MG TABLET 400 MG PO ×2 (08:10→16:11)
[2020-05-29] MEDS: Valsartan 80 MG TABLET PO (08:11)
[2020-05-29] MEDS: 0.9 % Sodium Chloride Flush 3 ML SYRINGE IVFLUSH (08:11)
[2020-05-29] MEDS: amLODIPine Besylate 5 MG TABLET PO (08:11)
[2020-05-29] MEDS: Apixaban 5 MG TABLET PO (08:11)
--- NOTE | 2020-05-29 09:21 | HO.ANESPROP2 ---
FORMERLY [facility] Past Medical History Medical History Afib Breast cancer Chronic back pain Diverticulitis HTN (hypertension) Mitral regurgitation Pulmonary hypertension Functional capacity: independent ambulation Family History Family History Father No problems noted. Mother No problems noted. Surgical History Surgical History History of appendectomy History of bilateral knee replacement Status post right breast lumpectomy Social History Social History Household Members: Spouse Housing: House Alcohol intake: current Alcohol intake frequency: a few times a week Alcohol type: wine Smoking Status: Former smoker Smoked in Last 30 Days: No Second Hand Smoke Exposure: No Use of substances other than those prescribed or required for medical reasons: No Currently Displaying Signs/Symptoms of Drug Intoxication Withdrawal: No Have you been hit, kicked, punched, or otherwise hurt by someone within the past year? If so, by whom?: No Advance Directives: No Advance Directives Information Provided: No Do you have thoughts of harming others: None Recently lost weight without trying: No service: No Current occupational status: retired [employer] Allergies Allergy/AdvReac Type Severity Reaction Status Date / Time No Known Allergies Allergy Verified 05/03/20 17:24 [No Known Allergies*] Home Medications Medication Instructions Recorded Confirmed Type Eliquis 5 mg PO BID 05/03/20 05/27/20 History amlodipine 5 mg PO DAILY 05/03/20 05/27/20 History irbesartan 150 mg PO DAILY 05/03/20 05/27/20 History omeprazole 20 mg PO DAILY 05/03/20 05/27/20 History prednisone 20 mg PO DAILY 05/27/20 05/27/20 History Exam Exam Date and Time: May 29, 202021 Height,Weight and Vital Signs: Height 5 ft 2 in Weight 61.235 kg Last Vital Signs Temp 96.8 F 05/29/20 08:34 Pulse 107 H 05/29/20 08:34 Resp 18 05/29/20 08:34 BP 117/72 05/29/20 08:34 Pulse Ox 97 05/29/20 08:34 Pertinent Lab Results Pertinent Lab Results: Laboratory Tests 05/27/20 05/27/20 05/27/20 12:45 12:45 12:45 WBC 6.7 RBC 4.15 L Hgb 12.6 Hct 37.9 MCV 91.3 MCH 30.4 MCHC 33.2 RDW 12.9 Plt Count 247 MPV 10.1 Immature Gran % (Auto) 0.6 H Neut % (Auto) 83.0 H Lymph % (Auto) 12.[address] % (Auto) 4.3 Eos % (Auto) 0.0 Baso % (Auto) 0.1 Lymph # (Auto) 0.[address] [place] # (Auto) 0.3 Eos # (Auto) 0.0 Baso # (Auto) 0.0 Abs Immat Gran (auto) 0.04 H Absolute Neuts (auto) 5.6 Absolute Nucleated RBC 0.000 Nucleated RBC % (auto) 0.0 PT INR Sodium 137 Potassium 4.7 Chloride 109 H Carbon Dioxide 17 L Anion Gap 16 BUN 19 H Creatinine 1.32 Estim Creat Clear Calc 29.2 Estimated GFR 39 Random Glucose 135 H Calcium 8.9 Magnesium 1.9 Troponin I High Sens 8.1 B-Natriuretic Peptide Coronavirus (PCR) 05/27/20 05/27/20 05/27/20 12:45 12:53 14:03 WBC RBC Hgb Hct MCV MCH MCHC RDW Plt Count MPV Immature Gran % (Auto) Neut % (Auto) Lymph % (Auto) [place] % (Auto) Eos % (Auto) Baso % (Auto) Lymph # (Auto) [place] # (Auto) Eos # (Auto) Baso # (Auto) Abs Immat Gran (auto) Absolute Neuts (auto) Absolute Nucleated RBC Nucleated RBC % (auto) PT 23.3 H INR 1.9 H Sodium Potassium Chloride Carbon Dioxide Anion Gap BUN Creatinine Estim Creat Clear Calc Estimated GFR Random Glucose Calcium Magnesium Troponin I High Sens B-Natriuretic Peptide 908 H Coronavirus (PCR) NEGATIVE 05/27/20 05/28/20 05/28/20 18:10 05:44 05:44 WBC 7.9 RBC 3.66 L Hgb 11.5 L Hct 33.7 L MCV 92.1 MCH 31.4 MCHC 34.1 RDW 12.8 Plt Count 209 MPV 10.3 Immature Gran % (Auto) Neut % (Auto) Lymph % (Auto) [place] % (Auto) Eos % (Auto) Baso % (Auto) Lymph # (Auto) [place] # (Auto) Eos # (Auto) Baso # (Auto) Abs Immat Gran (auto) Absolute Neuts (auto) Absolute Nucleated RBC 0.000 Nucleated RBC % (auto) 0.0 PT INR Sodium 139 Potassium 3.9 Chloride 109 H Carbon Dioxide 19 L Anion Gap 15 BUN 21 H Creatinine 1.15 Estim Creat Clear Calc 33.6 Estimated GFR 45 Random Glucose 106 Calcium 8.0 L Magnesium Troponin I High Sens 8.6 B-Natriuretic Peptide Coronavirus (PCR) Airway Mallampati Class: II TM Dist: >3cm Neck ROM: Full Denture: Upper and Lower
--- NOTE | 2020-05-29 09:30 | MHC.SHP ---
Pre-Procedural Eval Section A The patient is an INPATIENT: Yes Changes since office visit: No Cold of Flu in the past 2 weeks, No New Medical Problems, No Changes in Medication and No Patient answered all questions The History & Physical has been completed within 30 days and I have reviewed it.: Yes Section B Chief Complaint: afib rvr Allergies: Allergies Allergy/AdvReac Type Severity Reaction Status Date / Time No Known Allergies Allergy Verified 05/03/20 17:24 [No Known Allergies*] Plan Diagnosis/Plan: Unchanged Patient has been examined and remains a candidate for the planned procedure
[2020-05-29] MEDS: Lactated Ringers 1,000 ML 100 ML IVCONT (09:31)
[2020-05-29] MEDS: Furosemide 20 MG/2 ML VIAL IVPUSH (11:53)
[2020-05-29] MEDS: Omeprazole 20 MG CAPSULE.DR PO (11:53)
[2020-05-29] MEDS: predniSONE 20 MG TABLET PO (11:53)
--- NOTE | 2020-05-29 12:11 | HO.CARDIVERS ---
Cardioversion Procedure Note Cardioversion Date of Procedure: 05/29/20 Ordering Provider: Ricardo Lackey MD Performing Provider: Ricardo Lackey MD Indication for Procedure: Afib, CHF Pre-Op Diagnosis: Afib Post-Op Diagnosis: Afib Performed with Transesophageal Echo: No History: 80-year-old female with atrial fibrillation and congestive heart failure. Consent: Verbal and Written consent was obtained from the patient before starting. The patient was made aware of the risk of Stroke and complications of anesthesia. Procedure: After consent obtained, defib pads were attached and the patient was sedated by the anesthesia team. Once adequate sedation achieved, The patient was given a single synchronized shock of 200 joules and she went back to sinus rhythm. This was confirmed on EKG. She was left in a stable condition with Anesthesia for recovery. Complications: None Recommendations: return back to floor once wake. We will adjust her medications. Potentially discharge later today.
--- NOTE | 2020-05-29 12:18 | P.PNCA_ITS ---
Subjective Subjective Interval history: Feeling better. She was seen pre cardioversion. No dyspnea. Review of Systems Review of Systems Yes all other systems are reviewed and are negative Constitutional: Denies headache(s) and Denies weakness Denies dizziness and Denies headache(s) Musculoskeletal: Denies numbness and Denies tingling Reports system reviewed and no additional complaints, except as documented, Denies dizziness, Denies headache(s), Denies numbness, Denies tingling and Denies weakness Physical Exam Vital Signs: Last Vital Signs Temp 97.8 F 05/29/20 11:45 Pulse 62 05/29/20 11:45 Resp 20 05/29/20 11:45 BP 117/58 L 05/29/20 11:45 Pulse Ox 95 05/29/20 11:45 Body Mass Index 24.7 GENERAL APPEARANCE: in no acute distress, well developed, well nourished. HEENT: unremarkable. HEAD: normocephalic, atraumatic. NECK/THYROID: no carotid bruit, no jugular venous distention. SKIN: no suspicious lesions, warm and dry. HEART: no murmurs, Irregularly irregular rhythm, S1, S2 normal. LUNGS: clear to auscultation bilaterally. ABDOMEN: normal, bowel sounds present, soft, nontender, nondistended. EXTREMITIES: no clubbing, cyanosis, or edema. PERIPHERAL PULSES: equal. NEUROLOGIC: nonfocal, alert and oriented. PSYCH: mood/affect full range. Results Labs and Meds Result diagrams: 05/28/20 05:44 05/28/20 05:44 Progress Note: A&P Assessment and plan (1) Atrial fibrillation: Status: Acute (2) Congestive heart failure: Status: Acute (3) Mitral regurgitation: Status: Acute Assessment and Plan: pleasant 80-year-old female here for atrial fibrillation with rapid ventricular response and congestive heart failure. She has background of moderate mitral regurgitation and severe mitral annular calcification. She underwent cardioversion last week and she was started on Multaq but it appears she went back into atrial fibrillation and developed dyspnea. Clinically she was in heart failure when she presented to the hospital. Multaq cannot be used with heart failure due to high mortality and will not be resumed anymore. she is status post cardioversion now with sinus rhythm. She had first-degree AV block before. I think we leave her on amiodarone 400 mg twice a day. This should be continued for at least a week and then she should be decreased to 200 mg once a day. Recent LFTs and thyroid profile are normal. She will need repeat TSH and LFTs in 4 months. She will need yearly eye exams. Also she will need PFTs through her field talent qualification specialist in 4 months. She will need close monitoring of her lungs because of background of COPD. Currently there is no other option than amiodarone. We will do an echocardiogram on her as outpatient to reassess the mitral regurgitation. She should go home on 20 mg p.o. Lasix once a day. Thank you for allowing me to participate in the care of your patient. Please feel free to contact me if you have any questions. Fall Risk Details Current Medications: Current Medications Generic Name Dose Route Start Last Admin Trade Name Freq PRN Reason Stop Dose Admin Acetaminophen 650 mg 05/27/20 17:52 Acetaminophen 325 Mg Tablet PO Q6H PRN Pain, Mild (Pain Scale 1-3) Amiodarone HCl 400 mg 05/28/20 09:45 05/29/20 08:10 Amiodarone Hcl 200 Mg Tablet PO 400 mg TID JULIO Administration Amlodipine Besylate 5 mg 05/28/20 09:00 05/29/20 08:11 Amlodipine Besylate 5 Mg Tablet PO 5 mg DAILY JULIO Administration Protocol Apixaban 5 mg 05/27/20 21:00 05/29/20 08:11 Apixaban 5 Mg Tablet PO 5 mg BID JULIO Administration Docusate Sodium 100 mg 05/27/20 17:52 Docusate Sodium 100 Mg Capsule PO DAILY PRN Constipation Furosemide 20 mg 05/28/20 10:00 05/29/20 11:53 Furosemide 20 Mg/2 Ml Vial IVPUSH 20 mg Q12H JULIO Administration Protocol Lactated Ringer's 1,000 mls @ 100 mls/hr 05/29/20 09:30 05/29/20 10:56 Lr IVCONT Infused .Q10H JULIO Infusion Metoprolol Tartrate 25 mg 05/27/20 21:00 05/29/20 08:10 Metoprolol Tartrate 25 Mg Tablet PO 25 mg BID JULIO Administration Protocol Omeprazole 20 mg 05/28/20 09:00 05/29/20 11:53 Omeprazole 20 Mg Capsule. PO 20 mg DAILY JULIO Administration Ondansetron HCl 4 mg 05/27/20 17:52 Ondansetron Hcl 4 Mg/2 Ml Vial IVPUSH Q8H PRN Nausea and Vomiting Pharmacy Consult 1 each 05/27/20 13:03 Consult Rx Perform Med Rec MISCELLANE ONCE PRN Consult order Prednisone 20 mg 05/28/20 09:00 05/29/20 11:53 Prednisone 20 Mg Tablet PO 20 mg DAILY JULIO Administration Sodium Chloride 3 ml 05/27/20 17:52 05/29/20 08:11 0.9 % Sodium Chloride Flush 3 Ml Syringe IVFLUSH 3 ml QSHIFT JULIO Administration Valsartan 80 mg 05/28/20 09:00 05/29/20 08:11 Valsartan 80 Mg Tablet PO 80 mg DAILY JULIO Administration Time Spent With Patient Time: Total time spent is greater than 50% in coordination of care (as documented) at patient's floor/unit and/or counseling patient: Time with patient: less than 15 minutes
--- NOTE | 2020-05-29 12:37 | MHC.CM.PN ---
DC home no services family will provide transportation.
--- NOTE | 2020-05-29 13:08 | PM.DS ---
DS: Providers Provider Date of admission: 05/27/20 16:03 Primary care physician: Tavo Jain MD Consults: 05/27/20 17:52 Consult to Cardiology Routine Consulting Provider: Ricardo Lackey Reason for consultation: AFIB RVR Has provider been notified: No DS: Diagnosis Discharge Diagnosis (1) Atrial fibrillation: Status: Acute (2) Congestive heart failure: Status: Acute (3) Mitral regurgitation: Status: Acute DS: Summary Hospital Course Hospital Course: HPI 80-year-old female with a history of atrial fibrillation who presents to the emergency department with shortness of breath. She reports dyspnea most part with minimal activity. This is associated with chest tightness. She denies any significant palpitations. She was admitted from May 03 to May 05 with rapid atrial fibrillation. At that time she was started on digoxin. She followed up in the Cardiology office on May 15 at that time her digoxin was discontinued and plans were made for outpatient cardioversion. She underwent cardioversion on May 21 with successful return to normal sinus rhythm. She had a followup appointment with her solder deposit operator yesterday who recommended that she returned to see her screw machine tool setter. She was also placed on prednisone taper. Today she was told to come to the emergency department by the cardiology office. She was initially noted to be in atrial fibrillation with rapid ventricular response with a heart rate of 118. She was given a dose of IV Cardizem and her heart rate improved to the 90s. Her BNP was 908 and she was given a dose of IV Lasix. The case is discussed with the screw machine tool setter who wanted her admitted for possible cardioversion in the morning. hospital course 80-year-old female with persistent paroxysmal AFib recently cardioverted presented with palpitation and shortness of breatth admitted with AFib with RVR and acute on chronic diastolic CHF exacerbation, patient was continued on Lopressor and started on IV Lasix, cardiology was consulted patient underwent cardioversion, patient was converted to normal sinus rhythm and remains in sinus rhythm, shortness of breath improved, patient was stable, cleared by Cardiology for discharge, patient was discharged home on p.o. amiodarone 400 mg twice a day for 2 weeks and then 200 mg daily and po Lasix 20 mg daily patient will follow up cardiology as outpatient Multaq was stopped on discharge Time Spent with Patient Time attestation: Total time spent providing and/or coordinating discharge services: Physical Exam Vital Signs: Vital Signs: Last Vital Signs Temp 97.8 F 05/29/20 11:45 Pulse 62 05/29/20 11:45 Resp 20 05/29/20 11:45 BP 117/58 L 05/29/20 11:45 Pulse Ox 95 05/29/20 11:45 Body Mass Index 24.7 DS: Data Data Completed and Pending Labs on day of discharge: 05/27/20 12:38 ECG 12 lead EKG Stat EKG Documentation DIRECTED XR chest 1V Stat 05/27/20 12:39 dilTIAZem HCL [Cardizem] 10 mg IVPUSH STAT STA 05/27/20 12:45 Basic Metabolic Panel Stat Complete Blood Count Auto Diff Stat Magnesium Stat Prothrombin Time INR Stat Troponin-I High Sensitivity Stat 05/27/20 12:53 B Type Natriuretic Peptide Stat 05/27/20 13:43 CT chest wo con Stat 05/27/20 13:56 Add Laboratory Test Stat 05/27/20 14:03 SARS COV2 PCR INHOUSE Stat 05/27/20 15:15 Furosemide [Lasix] 20 mg IVPUSH ONCE ONE 05/27/20 15:56 Transfer Order Routine 05/27/20 18:10 Troponin-I High Sensitivity Stat 05/27/20 Dinner Low Sodium Diet 05/27/20 21:00 Amiodarone HCL [Cordarone] 400 mg PO TID 05/28/20 05:44 Basic Metabolic Panel DAILY@0600 Complete Blood Count no Diff DAILY@0600 05/28/20 Lunch Regular Diet 05/29/20 ECG 12 lead EKG Urgent 05/29/20 09:30 propofoL [Diprivan] 200 mg IVPUSH .STK-MED ONE 05/29/20 09:31 Lidocaine HCl 1 % MPF [Xylocaine 1 % MPF] 5 ml .ROUTE .STK-MED ONE 05/29/20 09:46 Transfer Order Routine Laboratory Last Values WBC 7.9 X10*3/uL (4.8-10.8) 05/28/20 05:44 RBC 3.66 X10*6/uL (4.20-5.50) L 05/28/20 05:44 Hgb 11.5 g/dl (12.0-16.0) L 05/28/20 05:44 Hct 33.7 % (37-47) L 05/28/20 05:44 MCV 92.1 fL (80-98) 05/28/20 05:44 MCH 31.4 pg (27.0-33.0) 05/28/20 05:44 MCHC 34.1 g/dl (31.0-35.0) 05/28/20 05:44 RDW 12.8 % (11.0-16.0) 05/28/20 05:44 Plt Count 209 X10*3/uL (160-400) 05/28/20 05:44 MPV 10.3 fL (9.4-12.3) 05/28/20 05:44 Immature Gran % (Auto) 0.6 % (0.0-0.4) H 05/27/20 12:45 Neut % (Auto) 83.0 % (45-73) H 05/27/20 12:45 Lymph % (Auto) 12.0 % (20-40) L 05/27/20 12:45 [place] % (Auto) 4.3 % (2-11) 05/27/20 12:45 Eos % (Auto) 0.0 % (0-4) 05/27/20 12:45 Baso % (Auto) 0.1 % (0-2) 05/27/20 12:45 Lymph # (Auto) 0.8 X10*3/uL (1.2-4.9) L 05/27/20 12:45 [place] # (Auto) 0.3 X10*3/uL (0.1-1.2) 05/27/20 12:45 Eos # (Auto) 0.0 X10*3/uL (0.0-0.4) 05/27/20 12:45 Baso # (Auto) 0.0 X10*3/uL (0.0-0.2) 05/27/20 12:45 Abs Immat Gran (auto) 0.04 X10*3/uL (0.00-0.03) H 05/27/20 12:45 Absolute Neuts (auto) 5.6 X10*3/uL (2.0-8.3) 05/27/20 12:45 Absolute Nucleated RBC 0.000 X10*3/uL (0.0-0.012) 05/28/20 05:44 Nucleated RBC % (auto) 0.0 /100WBC (0.0-0.2) 05/28/20 05:44 PT 23.3 SEC (10.8-13.0) H 05/27/20 12:45 INR 1.9 (0.9-1.1) H 05/27/20 12:45 Sodium 139 mmol/L (135-145) 05/28/20 05:44 Potassium 3.9 mmol/l (3.3-5.1) 05/28/20 05:44 Chloride 109 mmol/L (96-108) H 05/28/20 05:44 Carbon Dioxide 19 mmol/L (22-29) L 05/28/20 05:44 Anion Gap 15 (12-20) 05/28/20 05:44 BUN 21 mg/dL (9-16) H 05/28/20 05:44 Creatinine 1.15 mg/dL (0.5-1.4) 05/28/20 05:44 Estim Creat Clear Calc 33.6 05/28/20 05:44 Estimated GFR 45 05/28/20 05:44 Random Glucose 106 mg/dL (60-115) 05/28/20 05:44 Calcium 8.0 mg/dL (8.4-10.2) L 05/28/20 05:44 Magnesium 1.9 mg/dL (1.6-2.6) 05/27/20 12:45 Troponin I High Sens 8.6 ng/L (<3.5-17.0) 05/27/20 18:10 B-Natriuretic Peptide 908 pg/mL (<100) H 05/27/20 12:53 Coronavirus (PCR) NEGATIVE (Negative) 05/27/20 14:03 Discharge Plan Discharge Anticipated Discharge Date/Time: 05/29/20 12:56 Patient Disposition: Home, Self-Care Referrals: Tavo Jain MD [Primary Care Provider] - 1 Week (Please call and schedule a follow up appointment within 1 week.) Discharge Medications: New amiodarone 200 mg Tablet 400 mg PO BID Qty: 90 RF: 0 furosemide [Lasix] 20 mg tablet 20 mg PO DAILY Qty: 30 RF: 0 Continued amlodipine 5 mg Tablet 5 mg PO DAILY RF: 0 omeprazole 20 mg Capsule,Delayed Release(Dr/Ec) 20 mg PO DAILY RF: 0 irbesartan 150 mg Tablet 150 mg PO DAILY RF: 0 Eliquis 5 mg Tablet 5 mg PO BID RF: 0 metoprolol tartrate 25 mg tablet 25 mg PO BID Qty: 60 RF: 3 prednisone 20 mg Tablet 20 mg PO DAILY RF: 0 Discontinued Multaq 400 mg tablet 400 mg PO BID Qty: 60 RF: 3 Discharge Orders: Discharge Order (Routine); Ordered 05/29/20 Ordered By: Khai Castañeda Diet: advance to your usual diet Activity on Discharge: As tolerated Visit Report Forms: Patient Portal Discharge page Health Concerns: recurrent AFib Plan of Treatment: status post cardioversion , discharged on amiodarone
[2020-05-29 14:51] LABS: Anion Gap 14 (12-20); Blood Urea Nitrogen 28 mg/dL (9-16); Calcium 8.1 mg/dL (8.4-10.2); Carbon Dioxide 22 mmol/L (22-29); Chloride 106 mmol/L (96-108); Creatinine Clr Calc Pharmacy 27.7; Estimated Glomerular Filt Rate 37; Glucose Random 126 mg/dL (60-115); Potassium 3.4 mmol/l (3.3-5.1); Sodium 139 mmol/L (135-145)
== END 2020-05-29 16:35 | disposition home or self-care (01) | DRG 308 ==
LOC: HO.ED 15:28 → HO.IMC 16:13
PROVIDERS: Internal Medicine Cardiovascular Disease; Nurse Practitioner Family; Physician Assistant Medical; Admitting Provider Internal Medicine; Emergency Provider Emergency Medicine; PCP Internal Medicine Medical Oncology; Visit Provider Internal Medicine
PROC: 5A2204Z Restoration of Cardiac Rhythm, Single (ICD-10-PCS; principal; 2020-05-29 09:30)
DX: I48.0 Paroxysmal atrial fibrillation (principal); I50.33 Acute on chronic diastolic (congestive) heart failure; I11.0 Hypertensive heart disease with heart failure; G89.29 Other chronic pain; Z96.653 Presence of artificial knee joint, bilateral; Z20.828 Contact with and (suspected) exposure to other viral communicable diseases; I34.0 Nonrheumatic mitral (valve) insufficiency; Z85.3 Personal history of malignant neoplasm of breast; Z79.01 Long term (current) use of anticoagulants; Z79.52 Long term (current) use of systemic steroids; Z79.899 Other long term (current) drug therapy
CPT/HCPCS: 36415; 71045; 71250; 80048; 83735; 83880; 84484; 85025; 85027; 85610; 93005; 96374; 96375; 99285; J1940; U0003

== ENCOUNTER → 2020-06-04 13:25 | Outpatient (BNVA) | payer MEDICARE, SELFPAY | PROVIDERS: PCP Internal Medicine Medical Oncology; Visit Provider Internal Medicine Cardiovascular Disease | DX: I48.0 Paroxysmal atrial fibrillation (principal); I50.9 Heart failure, unspecified; I34.0 Nonrheumatic mitral (valve) insufficiency; Z79.01 Long term (current) use of anticoagulants; Z79.899 Other long term (current) drug therapy; Z98.890 Other specified postprocedural states | CPT/HCPCS: 93005; 99212 ==

== ENCOUNTER → 2020-06-15 13:20 | Outpatient (BNVA) | payer MEDICARE, SELFPAY | PROVIDERS: PCP Internal Medicine Medical Oncology; Visit Provider Internal Medicine Cardiovascular Disease | DX: I48.0 Paroxysmal atrial fibrillation (principal); I50.9 Heart failure, unspecified; I34.0 Nonrheumatic mitral (valve) insufficiency; Z79.01 Long term (current) use of anticoagulants; Z79.899 Other long term (current) drug therapy | CPT/HCPCS: 99212 ==

== ENCOUNTER 2020-06-17 09:19 | Outpatient (REF) | payer MEDICARE, SELFPAY ==
[2020-06-17 10:19] LABS: MANUAL DIFF FLAG NO
[2020-06-17 10:23] LABS: Basophils Absolute Auto 0.1 X10*3/uL (0.0-0.2); Eosinophils Absolute Auto 0.2 X10*3/uL (0.0-0.4); Eosinophils Percent Auto 3.5 % (0-4); Hematocrit 39.7 % (37-47); Hemoglobin 13.1 g/dl (12.0-16.0); Imm Gran Abs Auto 0.03 X10*3/uL (0.00-0.03); Imm Gran Pct Auto 0.5 % (0.0-0.4); Lymphocytes Absolute Auto 1.6 X10*3/uL (1.2-4.9); Lymphocytes Percent Auto 27.5 % (20-40); Mean Corpuscular Hemoglobin 30.5 pg (27.0-33.0); Mean Corpuscular Volume 92.3 fL (80-98); Mean Platelet Volume 10.7 fL (9.4-12.3); Monocytes Absolute Auto 0.4 X10*3/uL (0.1-1.2); Monocytes Percent Auto 6.9 % (2-11); Neutrophils Absolute Auto 3.5 X10*3/uL (2.0-8.3); Neutrophils Percent Auto 60.6 % (45-73); Platelet Count 228 X10*3/uL (160-400); Red Cell Distribution Width 12.4 % (11.0-16.0); White Blood Count 5.8 X10*3/uL (4.8-10.8)
[2020-06-17 10:51] LABS: Alanine Aminotransferase 17 U/L (0-31); Alkaline Phosphatase 64 U/L (39-117); Anion Gap 13 (12-20); Aspartate Amino Transferase 15 U/L (5-31); Bilirubin Total 0.5 mg/dL (0.0-1.0); Blood Urea Nitrogen 17 mg/dL (9-16); Calcium 8.8 mg/dL (8.4-10.2); Carbon Dioxide 23 mmol/L (22-29); Chloride 106 mmol/L (96-108); Cholesterol 214 mg/dL; Estimated Glomerular Filt Rate 33; Glucose Fasting 102 mg/dL (60-99); HDL Cholesterol 40 mg/dL; LDL Cholesterol Calculated 129 mg/dl; Potassium 4.3 mmol/l (3.3-5.1); Sodium 138 mmol/L (135-145); Total Protein 6.7 g/dL (6.5-8.0); Triglycerides 226 mg/dL
== END 2020-06-17 09:20 | disposition home or self-care (01) ==
LOC: HO.LAB 09:19
PROVIDERS: PCP Internal Medicine Medical Oncology; Visit Provider Internal Medicine Medical Oncology
DX: I10 Essential (primary) hypertension (principal)
CPT/HCPCS: 36415; 80053; 80061; 85025

== ENCOUNTER → 2020-07-08 08:30 | Outpatient (REF) | payer MEDICARE, SELFPAY ==
--- NOTE | 2020-07-08 08:35 | CA_ITS ---
Transthoracic Echocardiogram Patient (Last, First, Middle): Dianne Carlson M Gender: Female Date of : 1940 Age: 80 Procedure Date: 07/08/2020 Procedure Type: Transthoracic Echocardiogram Location: OP Height: 157.48 cm Weight: 61.24 kg BSA: 1.62 m2 Heart Rate: bpm BP: 102 / 64 mmHg Band Edger: Ronald MD: Ricardo Lackey MD Museum Librarian: Abhijit Mills MD Symptoms: I10 - Essential (primary) hypertension Study Quality: Fair ECG Rhythm: Atrial Fibrillation Conclusions: - 1. Normal LV systolic function 2. Mildly dilated left atrium 3. Severe mitral annular calcification with [id number] mitral regurgitation 4. Normal RV systolic pressure 5. No pericardial effusion Findings Left Ventricle Normal left ventricular size, thickness, and systolic function. The visually estimated ejection fraction is between 55-60%. Diastolic function is indeterminate on the basis of available data. Right Ventricle Normal right ventricular cavity size. Atria The left atrium is mildly dilated. There is lipomatous hypertrophy of the interatrial septum. Interatrial shunt cannot be excluded. The right atrium is likely dilated. Aortic Valve Normal aortic valve structure and function. There is no aortic valve stenosis. There is no aortic valve regurgitation. Mitral Valve There is mild anterior and moderate posterior mitral leaflet thickening. There is mild to moderate mitral valve regurgitation. There is no mitral valve stenosis. Pulmonic Valve Normal pulmonic valve structure and function. Tricuspid Valve Likely normal tricuspid valve structure and function. There is mild tricuspid valve regurgitation. The right ventricular systolic pressure is normal. The right ventricular systolic pressure is 22 mmHg. Normal right atrial pressure. There is no evidence of pulmonary hypertension. Great Vessels All visible segments of the aorta are normal in size. The pulmonary artery was not well visualized. Small plaque is seen in the ascending aorta. Venous The inferior vena cava is normal in size and collapses greater than 50% with inspiration. Pericardium/Pleural There is no evidence of pericardial effusion. Prior Study Comparison No significant change compared to prior study dated: 12/01/2018. Measurements 2D Linear Measurements RVIDd: 3.00 RVIDd Index: 1.85 IVSd: 0.65 0.6-0.9/0.6-1.0 cm LVIDd: 4.94 3.9-5.3/4.2-5.9 cm LVIDd Index: 3.05 2.4-3.2/2.2-3.1 cm/m2 LVIDs: 3.61 2.0-3.6 cm LVPWd: 0.97 0.7-1.1 cm Ao Root: 2.90 2.1-3.5 cm LA Diam: 4.50 2.7-3.8/3.0-4.0 cm LAIDs Index: 2.78 1.5-2.3 cm/m2 LV Mass: 167.68 67-162/88-224 g LV Mass Index: 103.51 43-95/49-115 g/m2 LVOT Diam: 2.10 3.0+(-)1.3 cm 2D Systolic Function EF 4C: 53.20 >55% EF 2C: 73.40 >55% EF BiP: 64.30 >55% Mitral Valve MR Vol - PW Dopp: 12.24 MR VTI: 1.53 MR ERO: 8.00 MR Alias Puneet: 0.34 MR RAD: 0.40 Aortic Valve AoV Pk Puneet: 0.94 AoV Mn Upneet: 0.69 AoV VTI: 0.18 AoV Pk Grad: 4.00 Aov Mn Grad: 2.00 NICOLE Cont.VTI: 2.82 LVOT LVOT Pk Puneet: 0.76 LVOT Mn Puneet: 0.50 LVOT VTI: 0.15 LVOT Pk Grad: 2.00 LVOT Mn Grad: 1.00 LVOT Diam: 2.10 LVOT Area: 3.46 Tricuspid Valve TR Pk Puneet: 2.18 TR Pk Grad: 19.00 RA Press: 3.00 RVSP: 22.00 Great Vessels Aorta Ao Root-2D: 2.90 2.0-3.7 cm Ao Asc: 2.80 2.1-3.4 cm Ao Arch: 2.60 Updated in Other Vendor System with Status of Final Abhijit Mills MD electronically signed on 07/08/2020 3:29:02 PM with status of Final
--- NOTE | 2020-07-08 08:35 | ECG_ITS ---
Hook-up date: 2020-07-08 09:35:00 Duration: 47:59:00 Test Indications: UNSPEC AFIB Medications: 283136 QRS complexes * Ventricular ectopics which represent % of total QRS comp. * Supraventricular ectopics which represent % of total QRS comp. * Paced QRS complexs which represent % of total QRS comp. VENTRICULAR ECTOPY * Isolated * Bigeminal Cycles * Couplets * Runs * Beats in Runs * Beats LONGEST at * BPM at :: -- * Beats FASTEST at * BPM at :: -- SUPRAVENTRICULAR ECTOPY * Isolated * Couplets * Runs * Beats in Runs * Beats LONGEST at * BPM at :: -- * Beats FASTEST at * BPM at :: -- HEART RATES 63 MIN at 00:06:11 2020-07-09 77 AVG 128 MAX at 17:26:09 2020-07-08 LONGEST RR 2.2160 secs at 23:18:58 2020-07-08 S-T LEVELS Channel 1 - 128 mm at 09:35:00 2020-07-08 - 128 mm at 09:35:00 2020-07-08 Channel 2 - 128 mm at 09:35:00 2020-07-08 - 128 mm at 09:35:00 2020-07-08 Channel 3 - 128 mm at 02:85:41 -- - 128 mm at 02:85:41 Underlying rhythm is atrial fibrillation; Average ventricular rate 77/min; No significant bradycardia or tachycardia; Adequate rate control of atrial fibrillation; Patient diary with chest pain episode that shows controlled atrial fibrillation. Referred By: Ricardo Lackey Overread By: GIORGIO SHEEHAN
== END ==
LOC: HO.CARD 08:30
PROVIDERS: PCP Internal Medicine Medical Oncology; Visit Provider Internal Medicine Cardiovascular Disease
DX: I48.91 Unspecified atrial fibrillation (principal); I10 Essential (primary) hypertension
CPT/HCPCS: 93225; 93226; 93306

== ENCOUNTER → 2020-07-15 12:58 | Outpatient (BNVA) | payer MEDICARE, SELFPAY | PROVIDERS: Referring Provider Internal Medicine Cardiovascular Disease; Visit Provider Internal Medicine Cardiovascular Disease | DX: I48.91 Unspecified atrial fibrillation (principal); I50.9 Heart failure, unspecified; I34.0 Nonrheumatic mitral (valve) insufficiency | CPT/HCPCS: 99212 ==

== ENCOUNTER 2020-09-22 14:23 | Outpatient (REF) | payer MEDICARE, SELFPAY ==
[2020-09-22 14:45] LABS: Basophils Percent Auto 0.4 % (0-2); Eosinophils Absolute Auto 0.1 X10*3/uL (0.0-0.4); Eosinophils Percent Auto 1.3 % (0-4); Hematocrit 35.2 % (37-47); Hemoglobin 11.8 g/dl (12.0-16.0); Imm Gran Abs Auto 0.12 X10*3/uL (0.00-0.03); Imm Gran Pct Auto 2.2 % (0.0-0.4); Lymphocytes Absolute Auto 0.6 X10*3/uL (1.2-4.9); Lymphocytes Percent Auto 10.3 % (20-40); MANUAL DIFF FLAG SCAN; Mean Corpuscular HGB Conc 33.5 g/dl (31.0-35.0); Mean Corpuscular Hemoglobin 30.6 pg (27.0-33.0); Mean Corpuscular Volume 91.4 fL (80-98); Mean Platelet Volume 9.6 fL (9.4-12.3); Monocytes Absolute Auto 0.5 X10*3/uL (0.1-1.2); Monocytes Percent Auto 8.6 % (2-11); Neutrophils Absolute Auto 4.2 X10*3/uL (2.0-8.3); Neutrophils Percent Auto 77.2 % (45-73); Platelet Count 157 X10*3/uL (160-400); Red Blood Count 3.85 X10*6/uL (4.20-5.50); Red Cell Distribution Width 14.6 % (11.0-16.0); SCAN SMEAR FLAG 1; White Blood Count 5.5 X10*3/uL (4.8-10.8)
[2020-09-22 15:13] LABS: Alanine Aminotransferase 26 U/L (0-31); Albumin Level 3.4 g/dL (3.5-5.0); Alkaline Phosphatase 87 U/L (39-117); Anion Gap 14 (12-20); Aspartate Amino Transferase 15 U/L (5-31); Bilirubin Total 0.9 mg/dL (0.0-1.0); Blood Urea Nitrogen 35 mg/dL (9-16); Calcium 8.2 mg/dL (8.4-10.2); Carbon Dioxide 22 mmol/L (22-29); Chloride 109 mmol/L (96-108); Estimated Glomerular Filt Rate 29; Glucose Random 99 mg/dL (60-115); Potassium 4.2 mmol/L (3.3-5.1); Sodium 141 mmol/L (135-145)
[2020-09-22 15:29] LABS: Troponin-I High Sensitivity 5.7 ng/L (<3.5-17.0)
[2020-09-22 15:42] LABS: SLIDE REVIEW VERIFIED
== END 2020-09-22 14:24 | disposition home or self-care (01) ==
LOC: HO.LAB 14:23
PROVIDERS: PCP Internal Medicine Medical Oncology; Visit Provider Internal Medicine Medical Oncology
DX: Z13.89 Encounter for screening for other disorder (principal)
CPT/HCPCS: 36415; 80053; 84484; 85025

== ENCOUNTER → 2020-09-24 09:20 | Outpatient (BNVA) | payer MEDICARE, SELFPAY | PROVIDERS: PCP Internal Medicine Medical Oncology; Visit Provider Internal Medicine Cardiovascular Disease | DX: Z13.89 Encounter for screening for other disorder (principal) | CPT/HCPCS: 93005 ==

== ENCOUNTER 2020-09-24 10:02 | Inpatient (IN) | payer MEDICARE, SELFPAY ==
[2020-09-24] VITALS (7 sets, daily range): BP systolic 90–116; BP diastolic 53–68; PULSE 84–97; RESP 18–22; TEMP 36.3–37; O2SAT 86–97; BMI 24.1
--- NOTE | ~2020-09-24 | CT_ITS ---
EXAMINATION: CT CHEST WITHOUT CONTRAST CLINICAL INFORMATION: Dyspnea on exertion COMPARISON: Previous chest x-ray most recent from yesterday and chest CT May 2020 TECHNIQUE: Multidetector volumetric CT imaging of the chest was done. Axial MIP volume rendering provided. Sagittal and coronal reformatted images were obtained. This CT examination was performed using dose optimization techniques as appropriate, variously including the following: *Automated exposure control *Adjustment of mA and/or kV according to patient size (this includes techniques or standardized protocols for targeted exams where dose is matched to indication/reason for exam; i.e. extremities or head) *Use of iterative reconstruction technique DLP: 118 mGy-cm FINDINGS: LUNGS: There is evidence of severe emphysema. There is a new irregularly-shaped 3 x 6 mm right upper lobe nodule axial image 214 series 7. There is a stable 5 x 10 mm groundglass attenuation nodule in the right upper lobe axial image 271 series 7. The previously identified 3 x 9 mm peripheral or subpleural left upper lobe pulmonary nodule that was new on May 2020 exam is no longer seen. The previously identified heterogeneous peripheral or subpleural right lower lobe nodules that were new on May 2020 exam are no longer seen. There are small calcified pulmonary nodules that are stable. There is scarring or subsegmental atelectasis at the lung bases that is stable. There are increased peripheral reticular interstitial markings at the lung bases questionable for mild interstitial lung disease.. MEDIASTINUM: There is mild focal dilatation of the aortic arch measuring 3.2 cm. The ascending and descending thoracic aorta are normal in caliber. The heart is upper normal in size. There is mitral annular calcification. There is mild coronary artery calcification. There is no pericardial effusion. The pulmonary arteries are prominent, main pulmonary artery measuring 3.2 cm which is unchanged. There are no enlarged lymph nodes. PLEURA: There is no pleural effusion. No pleural mass or thickening. AXILLA: There are surgical clips in the right axilla. No chest wall mass or enlarged axillary lymph nodes are seen. UPPER ABDOMEN: There are stable low-attenuation liver lesions probably representing cysts. There are gallstones in the gallbladder. There is cortical thinning or scarring in the right kidney and question small stones versus cortical calcification. There is diverticulosis of the colon. There is a duodenal diverticulum adjacent to the pancreas. OSSEOUS STRUCTURES: There are degenerative changes of the spine. CT/CT chest wo con IMPRESSION: Severe emphysema and question mild interstitial lung disease. New 3 x 6 mm irregularly-shaped right upper lobe nodule. Stable 5 x 10 mm groundglass attenuation right upper lobe nodule. Multiple new nodules on recent exam May 2020 are no longer seen. Continued chest CT follow-up of right upper lobe nodules recommended. Mild dilatation of the aortic arch. Prominent pulmonary arteries. Mild coronary artery calcification. Stable abdominal findings.
--- NOTE | ~2020-09-24 | XR_ITS ---
EXAMINATION: XR CHEST CLINICAL INFORMATION: Dyspnea. COMPARISON: Chest 05/27/2020. TECHNIQUE: Frontal view of the chest was obtained. FINDINGS: The lungs are well-expanded and clear of acute process. Heart size and pulmonary vascularity is normal. No gross bony abnormality seen. There are surgical june in the right axilla from previous intervention. XR/XR chest 1V IMPRESSION: Unremarkable chest exam.
--- NOTE | 2020-09-24 10:08 | ECG_ITS ---
Test Reason : SOB Blood Pressure : / mmHG Vent. Rate : 093 BPM Atrial Rate : 250 BPM P-R Int : 000 ms QRS Dur : 080 ms QT Int : 384 ms P-R-T Axes : 000 -09 004 degrees QTc Int : 477 ms Atrial fibrillation Abnormal ECG When compared with ECG of 29-MAY-2020 11:05, Atrial fibrillation has replaced Sinus rhythm Vent. rate has increased BY 43 BPM T wave inversion no longer evident in Anterior leads QT has lengthened Referred By: Ana Cisse Electronically Signed By:GIORGIO SHEEHAN
--- NOTE | 2020-09-24 10:10 | ED_ITS ---
HPI - SOB/Dyspnea General Chief Complaint: Dyspnea Stated Complaint: SOB Time Seen by Provider: 09/24/20 10:06 Source: patient Mode of arrival: ambulatory (sent by Cardiology ) Limitations: no limitations History of Present Illness HPI Narrative: 80 yo female with afib, CHF, mitral regurgitation, HTN - on eliquis, has c/o MICHEL and recurrent afib over the past month that is causing it hard for her to exert herself did increase lasix but it did not help, sent by Cardiology for admission, ECHO and likely cardioversion MD elicited complaint: shortness of breath Pertinent past history: congestive heart failure Onset (ago): month(s) (1) Context: occurred during exertion Timing: intermittent Severity: moderate Exacerbating factors: exertion Relieving factors: rest Known history of: congestive heart failure Associated symptoms: palpitations Treatment prior to arrival: none Related Data Home Medications Medication Instructions Recorded Confirmed Eliquis 5 mg PO BID 05/03/20 09/24/20 amlodipine 5 mg PO DAILY 05/03/20 09/24/20 irbesartan 150 mg PO DAILY 05/03/20 09/24/20 omeprazole 20 mg PO DAILY 05/03/20 09/24/20 albuterol sulfate 1 puff INHALATION Q4H PRN 09/24/20 09/24/20 furosemide 20 mg tablet 20 mg PO DAILY tab 09/24/20 09/24/20 Previous Rx's Medication Instructions Recorded metoprolol tartrate 25 mg tablet 25 mg PO BID #120 tab 06/16/20 amiodarone 200 mg tablet 200 mg PO DAILY 90 Days #90 tab 07/16/20 Allergies Allergy/AdvReac Type Severity Reaction Status Date / Time No Known Allergies Allergy Verified 06/15/20 13:52 [No Known Allergies*] Review of Systems Review of Systems: Constitutional : No Fever, No Chills ENT/Mouth : No sore throat, No Rhinorrhea, No Swallowing Difficulty Eyes: No Eye Pain, No Swelling, No Redness Cardiovascular : No Chest Pain, positive SOB, No Orthopnea, no Edema Respiratory : No Cough, No Sputum, No Wheezing, positive dyspnea Gastrointestinal : No Nausea, No Vomiting, No Diarrhea, No abdominal Pain, No Hematochezia, No Melena Genitourinary : No Dysuria, No Urinary Frequency, No Hematuria Musculoskeletal : No joint pain, No Myalgias Skin : No Skin Lesions, No rash Neuro : No Weakness, No Numbness, No Dizziness, No Headache Psych : No Anxiety/Panic, No Depression Heme/Lymph: No Bruising, No Lymphadenopathy Endocrine : No Polyuria, No Polydipsia All other systems reviewed and are negative [facility] Past Medical History Attestation statement: The following information was validated with the patient. Medical History Afib Breast cancer Chronic back pain Diverticulitis HTN (hypertension) Mitral regurgitation Pulmonary hypertension Surgical History History of appendectomy History of bilateral knee replacement Status post right breast lumpectomy Family History Family History Father No problems noted. Mother No problems noted. Social History Social History Household Members: Spouse Housing: House Alcohol intake: never Smoking Status: Former smoker Smoked in Last 30 Days: No Second Hand Smoke Exposure: No Use of substances other than those prescribed or required for medical reasons: No Advance Directives: No Advance Directives Information Provided: No service: No Current occupational status: retired Physical Exam Vital Signs: Vital Signs: Last Vital Signs Temp 98.1 F 09/24/20 10:10 Pulse 86 09/24/20 10:10 Resp 20 09/24/20 10:10 BP 96/67 09/24/20 10:10 Pulse Ox 97 09/24/20 10:10 Body Mass Index 24.1 Appearance: Alert. Oriented X3. No acute distress. Eyes: Pupils equal, round and reactive to light. ENT: Pharynx normal. Neck: Normal inspection. Neck supple. CVS: irregular heart rate and rhythm. Pulses normal. Respiratory: No respiratory distress. Breath sounds normal. Abdomen: Soft and nontender. Skin: Skin warm and dry. Normal skin color. Normal skin turgor. Extremities: No lower extremity edema. No calf ttp Neuro: Oriented X 3. No motor deficit. No sensory deficit. Course Course Course Narrative: worsening MARIE likely due to recent increase in lasix - she is now back to 40mg x 1 daily MDM - SOB/Dyspnea MDM Narrative Medical decision making narrative: 80 yo female with residential afib on eliquis has been cardioverted x 2 noted last month has been going in and out of afib causing MICHEL - sent by Cardiology for labs, ECHO and admission for possible cardioversion, patient aware and has no questions Lab Data Result diagrams: 09/24/20 10:22 09/24/20 10:22 Labs: Lab Results 09/24/20 09/24/20 09/24/20 Range/Units 10:22 10:22 10:22 WBC 6.3 (4.8-10.8) X10*3/uL RBC 4.04 L (4.20-5.50) X10*6/uL Hgb 12.3 (12.0-16.0) g/dl Hct 37.0 (37-47) % MCV 91.6 (80-98) fL MCH 30.4 (27.0-33.0) pg MCHC 33.2 (31.0-35.0) g/dl RDW 14.6 (11.0-16.0) % Plt Count 187 (160-400) X10*3/uL MPV 9.6 (9.4-12.3) fL Immature Gran % (Auto) 1.9 H (0.0-0.4) % Neut % (Auto) 80.0 H (45-73) % Lymph % (Auto) 8.5 L (20-40) % Luna % (Auto) 7.7 (2-11) % Eos % (Auto) 1.6 (0-4) % Baso % (Auto) 0.3 (0-2) % Lymph # (Auto) 0.5 L (1.2-4.9) X10*3/uL Luna # (Auto) 0.5 (0.1-1.2) X10*3/uL Eos # (Auto) 0.1 (0.0-0.4) X10*3/uL Baso # (Auto) 0.0 (0.0-0.2) X10*3/uL Abs Immat Gran (auto) 0.12 H (0.00-0.03) X10*3/uL Absolute Neuts (auto) 5.0 (2.0-8.3) X10*3/uL Absolute Nucleated RBC 0.000 (0.0-0.012) X10*3/uL Nucleated RBC % (auto) 0.0 (0.0-0.2) /100WBC Smear Tech's Comments VERIFIED PT 25.0 H (10.8-13.0) SEC INR 2.1 H (0.9-1.1) APTT 36.2 (24.1-38.0) SEC Sodium 138 (135-145) mmol/L Potassium 4.2 (3.3-5.1) mmol/L Chloride 106 (96-108) mmol/L Carbon Dioxide 21 L (22-29) mmol/L Anion Gap 15 (12-20) BUN 46 H (9-16) mg/dL Creatinine 2.08 H (0.5-1.4) mg/dL Estim Creat Clear Calc 16.7 Estimated GFR 23 Random Glucose 110 (60-115) mg/dL Calcium 8.4 (8.4-10.2) mg/dL Magnesium 1.9 (1.6-2.6) mg/dL Total Bilirubin 0.7 (0.0-1.0) mg/dL Direct Bilirubin 0.3 (0.0-0.5) mg/dL AST 14 (5-31) U/L ALT 27 (0-31) U/L Alkaline Phosphatase 93 (39-117) U/L Troponin I High Sens (<3.5-17.0) ng/L B-Natriuretic Peptide (<100) pg/mL Total Protein 6.3 L (6.5-8.0) g/dL Albumin 3.4 L (3.5-5.0) g/dL TSH 4.80 H (0.32-4.0) uIU/mL COVID-19 (CARMINE) (Negative) COVID-19 Clin Com 09/24/20 09/24/20 Range/Units 10:22 10:36 WBC (4.8-10.8) X10*3/uL RBC (4.20-5.50) X10*6/uL Hgb (12.0-16.0) g/dl Hct (37-47) % MCV (80-98) fL MCH (27.0-33.0) pg MCHC (31.0-35.0) g/dl RDW (11.0-16.0) % Plt Count (160-400) X10*3/uL MPV (9.4-12.3) fL Immature Gran % (Auto) (0.0-0.4) % Neut % (Auto) (45-73) % Lymph % (Auto) (20-40) % [place] % (Auto) (2-11) % Eos % (Auto) (0-4) % Baso % (Auto) (0-2) % Lymph # (Auto) (1.2-4.9) X10*3/uL Luna # (Auto) (0.1-1.2) X10*3/uL Eos # (Auto) (0.0-0.4) X10*3/uL Baso # (Auto) (0.0-0.2) X10*3/uL Abs Immat Gran (auto) (0.00-0.03) X10*3/uL Absolute Neuts (auto) (2.0-8.3) X10*3/uL Absolute Nucleated RBC (0.0-0.012) X10*3/uL Nucleated RBC % (auto) (0.0-0.2) /100WBC Smear Tech's Comments PT (10.8-13.0) SEC INR (0.9-1.1) APTT (24.1-38.0) SEC Sodium (135-145) mmol/L Potassium (3.3-5.1) mmol/L Chloride (96-108) mmol/L Carbon Dioxide (22-29) mmol/L Anion Gap (12-20) BUN (9-16) mg/dL Creatinine (0.5-1.4) mg/dL Estim Creat Clear Calc Estimated GFR Random Glucose (60-115) mg/dL Calcium (8.4-10.2) mg/dL Magnesium (1.6-2.6) mg/dL Total Bilirubin (0.0-1.0) mg/dL Direct Bilirubin (0.0-0.5) mg/dL AST (5-31) U/L ALT (0-31) U/L Alkaline Phosphatase (39-117) U/L Troponin I High Sens 3.9 (<3.5-17.0) ng/L B-Natriuretic Peptide 322 H (<100) pg/mL Total Protein (6.5-8.0) g/dL Albumin (3.5-5.0) g/dL TSH (0.32-4.0) uIU/mL COVID-19 (CARMINE) Negative (Negative) COVID-19 Clin Com See Note ECG Data Attestation: I personally reviewed and interpreted this ECG as follows: ECG interpretation date: 09/24/20 ECG interpretation time: 10:23 Interpretation: Rate: 93 Rhythm: afib Newcomb: left Normal QRS complex. ST T wave : nonspecific, no DAVY qTC: normal prior studies: no acute ischemia The study has been interpreted contemporaneously by me. . Discharge Plan Discharge Clinical Impression: MICHEL (dyspnea on exertion), MARIE (acute kidney injury) Atrial fibrillation Qualifiers: Atrial fibrillation type: paroxysmal Qualified Code(s): I48.0 - Paroxysmal atrial fibrillation Patient Disposition: Admitted As Inpatient
[2020-09-24 10:31] LABS: Basophils Percent Auto 0.3 % (0-2); Eosinophils Absolute Auto 0.1 X10*3/uL (0.0-0.4); Eosinophils Percent Auto 1.6 % (0-4); Hemoglobin 12.3 g/dl (12.0-16.0); Imm Gran Abs Auto 0.12 X10*3/uL (0.00-0.03); Imm Gran Pct Auto 1.9 % (0.0-0.4); Lymphocytes Absolute Auto 0.5 X10*3/uL (1.2-4.9); Lymphocytes Percent Auto 8.5 % (20-40); MANUAL DIFF FLAG SCAN; Mean Corpuscular HGB Conc 33.2 g/dl (31.0-35.0); Mean Corpuscular Hemoglobin 30.4 pg (27.0-33.0); Mean Corpuscular Volume 91.6 fL (80-98); Mean Platelet Volume 9.6 fL (9.4-12.3); Monocytes Absolute Auto 0.5 X10*3/uL (0.1-1.2); Monocytes Percent Auto 7.7 % (2-11); Platelet Count 187 X10*3/uL (160-400); Red Blood Count 4.04 X10*6/uL (4.20-5.50); Red Cell Distribution Width 14.6 % (11.0-16.0); SCAN SMEAR FLAG 1; White Blood Count 6.3 X10*3/uL (4.8-10.8)
--- NOTE | 2020-09-24 10:32 | PC.NURSE ---
iv established, blood labs obtained and sent, covid swab obtained and sent, cxr completed, ekg completed. seen by provider, plan for inpt admission. pt updated on plan of care and agreeable.
[2020-09-24 10:39] LABS: INTERNATIONAL NORM RATIO 2.1 (0.9-1.1)
[2020-09-24 10:42] LABS: Partial Thromboplastin Time 36.2 SEC (24.1-38.0)
[2020-09-24 11:06] LABS: COVID-19 Test Negative (Negative); IDNOW Serial# 9DD0AD1C
[2020-09-24 11:21] LABS: SLIDE REVIEW VERIFIED
[2020-09-24 11:35] LABS: Alanine Aminotransferase 27 U/L (0-31); Albumin Level 3.4 g/dL (3.5-5.0); Alkaline Phosphatase 93 U/L (39-117); Anion Gap 15 (12-20); Aspartate Amino Transferase 14 U/L (5-31); Bilirubin Direct 0.3 mg/dL (0.0-0.5); Bilirubin Total 0.7 mg/dL (0.0-1.0); Blood Urea Nitrogen 46 mg/dL (9-16); Calcium 8.4 mg/dL (8.4-10.2); Carbon Dioxide 21 mmol/L (22-29); Chloride 106 mmol/L (96-108); Creatinine Clr Calc Pharmacy 16.7; Estimated Glomerular Filt Rate 23; Glucose Random 110 mg/dL (60-115); Magnesium 1.9 mg/dL (1.6-2.6); Potassium 4.2 mmol/L (3.3-5.1); Sodium 138 mmol/L (135-145); Total Protein 6.3 g/dL (6.5-8.0)
[2020-09-24 11:41] LABS: B Type Natriuretic Peptide 322 pg/mL (<100); Troponin-I High Sensitivity 3.9 ng/L (<3.5-17.0)
--- NOTE | 2020-09-24 11:58 | P.CONCA_ITS ---
History of Present Illness History of Present Illness Date of Service: 09/24/20 Requesting physician: Radha Bowden Consult reason: atrial fibrillation and shortness of breath Chief complaint: SOB Narrative: 80-year-old female with background history of atrial fibrillation for which she underwent cardioversion in the past. She also has history of moderate mitral regurgitation. She has COPD. She previously had cardioversion twice but unfortunately went back into AFib. She was started on amiodarone and was doing well with rate control with amiodarone and had no symptoms. She left for [place] and returned last week. While in [place] she started having shortness of breath which progressively worsened to the point that she is getting out of breath even walking between rooms. She saw Dr. Jain and her Lasix when his increased to 3 times a day. She is saying she is having trouble lying down in bed. Looking at her labs her kidney function has worsened on blood workup done 2 days ago. No bleeding issues reported. She is saying she also has some chest tightness. She looks quite distressed by her dyspnea. We decided to send her to emergency department for further workup and potential admission for inpatient care. Review of Systems Review of Systems: Shortness of breath Yes all other systems are reviewed and are negative PMFSH Past Medical History Medical History Afib Breast cancer Chronic back pain Diverticulitis HTN (hypertension) Mitral regurgitation Pulmonary hypertension Family History Family History Father No problems noted. Mother No problems noted. Surgical History Surgical History History of appendectomy History of bilateral knee replacement Status post right breast lumpectomy Social History Social History Household Members: Spouse Housing: House Alcohol intake: never Smoking Status: Former smoker Smoked in Last 30 Days: No Second Hand Smoke Exposure: No Use of substances other than those prescribed or required for medical reasons: No Advance Directives: No Advance Directives Information Provided: No service: No Current occupational status: retired Meds Allergies Allergy/AdvReac Type Severity Reaction Status Date / Time No Known Allergies Allergy Verified 06/15/20 13:52 [No Known Allergies*] Active Medications: Current Medications Generic Name Dose Route Start Last Admin Trade Name Ramu PRN Reason Stop Dose Admin Pharmacy Consult 1 each 09/24/20 10:07 Consult Rx Perform Med Rec MISCELLANE ONCE PRN Consult order Home Medications Medication Instructions Recorded Confirmed Last Taken Type Eliquis 5 mg PO BID 05/03/20 09/24/20 09/24/20 History amlodipine 5 mg PO DAILY 05/03/20 09/24/20 09/24/20 History irbesartan 150 mg PO DAILY 05/03/20 09/24/20 09/24/20 History omeprazole 20 mg PO DAILY 05/03/20 09/24/20 09/24/20 History albuterol sulfate 1 puff INHALATION Q4H PRN 09/24/20 09/24/20 Unknown History furosemide 20 mg tablet 20 mg PO DAILY tab 09/24/20 09/24/20 09/24/20 History Physical Exam Vital Signs: Vital Signs: Last Vital Signs Temp 98.1 F 09/24/20 10:10 Pulse 86 09/24/20 10:10 Resp 20 09/24/20 10:10 BP 96/67 09/24/20 10:10 Pulse Ox 97 09/24/20 10:10 Body Mass Index 24.1 Results Labs and Meds Result diagrams: 09/24/20 10:22 09/24/20 10:22 Lab results: Laboratory Results - last 24 hr 09/24/20 09/24/20 09/24/20 10:22 10:22 10:22 WBC 6.3 RBC 4.04 L Hgb 12.3 Hct 37.0 MCV 91.6 MCH 30.4 MCHC 33.2 RDW 14.6 Plt Count 187 MPV 9.6 Immature Gran % (Auto) 1.9 H Neut % (Auto) 80.0 H Lymph % (Auto) 8.5 L [place] % (Auto) 7.7 Eos % (Auto) 1.6 Baso % (Auto) 0.3 Lymph # (Auto) 0.5 L [place] # (Auto) 0.5 Eos # (Auto) 0.1 Baso # (Auto) 0.0 Abs Immat Gran (auto) 0.12 H Absolute Neuts (auto) 5.0 Absolute Nucleated RBC 0.000 Nucleated RBC % (auto) 0.0 Smear Tech's Comments VERIFIED PT 25.0 H INR 2.1 H APTT 36.2 Sodium 138 Potassium 4.2 Chloride 106 Carbon Dioxide 21 L Anion Gap 15 BUN 46 H Creatinine 2.08 H Estim Creat Clear Calc 16.7 Estimated GFR 23 Random Glucose 110 Calcium 8.4 Magnesium 1.9 Total Bilirubin 0.7 Direct Bilirubin 0.3 AST 14 ALT 27 Alkaline Phosphatase 93 Troponin I High Sens B-Natriuretic Peptide Total Protein 6.3 L Albumin 3.4 L TSH 4.80 H COVID-19 (CARMINE) COVID-19 Clin Com 09/24/20 09/24/20 10:22 10:36 WBC RBC Hgb Hct MCV MCH MCHC RDW Plt Count MPV Immature Gran % (Auto) Neut % (Auto) Lymph % (Auto) [place] % (Auto) Eos % (Auto) Baso % (Auto) Lymph # (Auto) [place] # (Auto) Eos # (Auto) Baso # (Auto) Abs Immat Gran (auto) Absolute Neuts (auto) Absolute Nucleated RBC Nucleated RBC % (auto) Smear Tech's Comments PT INR APTT Sodium Potassium Chloride Carbon Dioxide Anion Gap BUN Creatinine Estim Creat Clear Calc Estimated GFR Random Glucose Calcium Magnesium Total Bilirubin Direct Bilirubin AST ALT Alkaline Phosphatase Troponin I High Sens 3.9 B-Natriuretic Peptide 322 H Total Protein Albumin TSH COVID-19 (CARMINE) Negative COVID-19 Clin Com See Note Assessment and Plan (1) MICHEL (dyspnea on exertion): Status: Acute (2) MARIE (acute kidney injury): Status: Acute (3) Atrial fibrillation: Qualifiers: Atrial fibrillation type: paroxysmal Qualified Code(s): I48.0 - Paroxysmal atrial fibrillation Status: Acute (4) Congestive heart failure: Status: Acute Pleasant 80-year-old female with background history of COPD, diastolic heart failure, moderate mitral regurgitation, hypertension and atrial fibrillation. She was seen previously with heart failure and underwent cardioversion for atrial fibrillation and was started on diuretics. She did well from heart failure point of view but went back into atrial fibrillation. At that stage she was started on amiodarone. After that she left for [place] and came back a week ago. While there she had progressive shortness of breath. Examining her today she does not look volume overloaded to me. Her lungs sound clear and she has no JVD. Her creatinine has worsened in this time. She has low voltage on the EKG. I will hold further diuretics on her. Please check chest x-ray, repeat the basic metabolic panel, BNP, troponins and T SH. She has lung disease which could be contributing to dyspnea also. Given low voltage and background of moderate mitral regurgitation and dyspnea, I will repeat her echocardiogram. Amiodarone was started recently and rarely acute reactions can happen. If chest x-ray is not conclusive then she may need CT chest. If no obvious cause is found then we may have to consider AFib as a cause and consider cardioversion again. Please cut the dose of Eliquis to 2.5 mg twice a day for now because she has significant kidney injury. Thank you for allowing me to participate in the care of your patient. Please feel free to contact me if you have any questions. Procedures Date of Service Date of Service: 09/24/20
--- NOTE | 2020-09-24 12:54 | PC.NURSE ---
updated on plan of care, explained lab and imaging results. given cardiac diet, tolerating po w/o issue. placed on 2 l nc for comfort, 92% on ra
--- NOTE | 2020-09-24 14:14 | HP_ITS ---
DATE OF SERVICE: 09/24/2020 FILM WASHER: Dr. Ricardo Lackey. HISTORY OF PRESENTING ILLNESS: This is a very pleasant 80-year-old female patient, who was sent to [facility] by her financial services specialist, Dr. Lackey due to dyspnea on exertion that has been gradually worsening in the last several weeks. The patient was evaluated by her primary care physician, Dr. Jain, and her dose of Lasix was increased to 3 tablets yesterday. The patient complaining of chest discomfort with coughing. She is complaining of shortness of breath with minimal distance, then she has to rest for 5 minutes to catch her breath. She denies any PND or orthopnea. She is being compliant with her medication. The patient returned from [place] few days ago. She noted to be short of breath in [place] and had a checkup there as well and was recommended to go to the hospital, but she decided to return back to home and then be evaluated by her financial services specialist. The patient denies any fever or chills. She denies any sick contacts. She does complain of dizziness with standing. She denies other symptoms of nausea, vomiting, diarrhea, or abdominal discomfort. She denies any worsening leg edema. At Dr. Lackey's office, the patient was noted to be short of breath. Her EKG showed atrial fibrillation with ventricular rate in 90s. The patient was referred to [facility] for further workup. PAST MEDICAL HISTORY: Significant for: 1. History of atrial fibrillation, status post cardioversion x2. 2. She has history of breast cancer. 3. History of chronic back pain. 4. History of diverticulitis. 5. History of hypertension. 6. History of mitral regurg. 7. History of pulmonary hypertension. PAST SURGICAL HISTORY: She is status post appendectomy, status post bilateral knee replacement, status post right breast lumpectomy. SOCIAL HISTORY: The patient lives with her . She just returned from [place] after selling her mobile home. She is a former smoker. She occasionally drinks alcohol. FAMILY HISTORY: The patient's parents are . Has no history of premature coronary artery disease. 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 Denies any headache or weakness. GI: She denies nausea, vomiting, or diarrhea. : She has no urinary symptoms of urgency or frequency. CARDIOVASCULAR: She complains of chest pain with coughing. Otherwise, denies orthopnea or PND. RESPIRATORY: She complains of worsening shortness of breath with exertion, unable to walk short distances without getting short of breath. All other systems are reviewed and are negative. PHYSICAL EXAMINATION: GENERAL: The patient is resting comfortably, does not appear to be in acute distress. VITAL SIGNS: Blood pressure 102/68 with a pulse of 84, finger oximetry 96% on 2 L, pulse is 90 to 96. HEENT: Pupils equal, round, and reactive to light and accommodation. Extraocular muscles are intact. Anicteric sclerae. NECK: Supple. No increased JVD. LUNGS: Clear to auscultation with no rhonchi, crackles, or wheeze. HEART: Irregularly irregular. ABDOMEN: Soft, nontender. Bowel sounds are audible. EXTREMITIES: Without clubbing, cyanosis, or edema. She has good peripheral pulses. LABORATORY DATA: Showed WBC of 6.3, hematocrit 37, platelet count of 187. Sodium 138, potassium 4.2, creatinine of 2.08. She has a normal kidney function in May of 2020, subsequently noted to have gradually worsening renal function from 1.51 in June 17, 2020 to 2.08 today. Chest x-ray showed patchy atelectasis and infiltrate left lower lobe. No acute process seen. CT chest from today showed no evidence of pneumonia, it showed emphysema, new bilateral pulmonary nodules, new subsegmental atelectasis in the right middle lobe and right lower lobe, new small bilateral pleural effusion, enlarged heart and coronary artery calcification, enlarged pulmonary arteries, questionable for pulmonary artery hypertension. ASSESSMENT AND PLAN: This 80-year-old female patient with past medical history of chronic obstructive pulmonary disease, moderate mitral regurgitation, diastolic heart failure, atrial fibrillation, status post cardioversion twice in the past, presented to [facility] with gradually worsening dyspnea on exertion. The patient noted to be in atrial fibrillation and has worsening renal function. 1. Dyspnea on exertion, likely due to persistent Atrial fibrillation with uncontrolled ventricular rate/atelectasis/pulmonary hypertension/pulmonary nodules question related to amiodarone. The patient will be admitted to intermediate care unit. We will continue Eliquis and beta blockers for rate control. We will hold amiodarone for now and we will discuss the use of amiodarone since the CT chest showed new bilateral pulmonary nodules. Encourage incentive spirometer, We will obtain cardiology consultation for further management. 2. Acute kidney injury. Likely due to use of extra dosage of diuretics. We will hold Lasix as well as irbesartan today since blood pressure is low. We will follow renal function closely. Avoid hypotension 3. Hypertension. Blood pressure is soft. Therefore, we will hold Lasix and irbesartan. Continue metoprolol. 4. History of chronic obstructive pulmonary disease. No evidence of acute exacerbation at the present time. We will continue home inhalers. 5. Deep vein thrombosis prophylaxis. The patient is on Eliquis. 6. GI prophylaxis. We will continue omeprazole. MD DARRYN Moreno/MODL / [id number] MTDD
--- NOTE | 2020-09-24 14:34 | PC.NURSE ---
CALL FOR REPORT TO [facility] UNSUCCESSFUL, NURSE WILL CALL BACK WHEN AVAILABLE.
[2020-09-24] MEDS: Metoprolol Tartrate 25 MG TABLET PO (20:59)
[2020-09-24] MEDS: Apixaban 2.5 MG TABLET PO (20:59)
[2020-09-25] VITALS (7 sets, daily range): BP systolic 91–110; BP diastolic 52–64; PULSE 84–95; RESP 18–20; TEMP 35.9–37.1; O2SAT 90–94
[2020-09-25] MEDS: Omeprazole 20 MG CAPSULE.DR PO (05:36)
[2020-09-25] MEDS: Metoprolol Tartrate 25 MG TABLET PO ×2 (08:51→20:25)
[2020-09-25] MEDS: Apixaban 2.5 MG TABLET PO ×2 (08:51→20:25)
--- NOTE | 2020-09-25 10:07 | CA_ITS ---
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 Lackey Study Quality: Fair ECG Rhythm: Sinus Conclusions: - The left ventricular systolic function is normal. The visually estimated ejection fraction is between 65-70%. - There is moderate mitral annular calcification. - There is mild to moderate mitral valve regurgitation. - There is mild tricuspid valve regurgitation. - Small plaque is seen in the sino tubular ridge. Findings Left Ventricle Normal left ventricular cavity size. There is moderately increased left ventricular wall thickness. The left ventricular systolic function is normal. The visually estimated ejection fraction is between 65-70%. There is no evidence of regional wall motion abnormalities. Diastolic function is indeterminate on the basis of available data. Right Ventricle Normal right ventricular cavity size and systolic function. Atria The left atrium is mildly dilated. The right atrium is normal in size. Aortic Valve The aortic valve was not well visualized. There is no aortic valve stenosis. There is no aortic valve regurgitation. Mitral Valve There is moderate mitral annular calcification. There is mild to moderate mitral valve regurgitation. There is no mitral valve stenosis. Pulmonic Valve The pulmonic valve was not well visualized. Tricuspid Valve Normal tricuspid valve structure. There is mild tricuspid valve regurgitation. The pulmonary artery systolic pressure is normal. Great Vessels The asc aorta is normal in size. Small plaque is seen in the sino tubular ridge. Venous The inferior vena cava is normal in size and collapses greater than 50% with inspiration. Pericardium/Pleural There is no evidence of pericardial effusion. Prior Study Comparison No significant change compared to prior study dated: 07/08/2020. Measurements 2D Linear Measurements IVSd: 1.29 0.6-0.9/0.6-1.0 cm LVIDd: 3.65 3.9-5.3/4.2-5.9 cm LVIDd Index: 2.28 2.4-3.2/2.2-3.1 cm/m2 LVIDs: 2.25 2.0-3.6 cm LVPWd: 1.31 0.7-1.1 cm Ao Root: 3.30 2.1-3.5 cm LA Diam: 4.20 2.7-3.8/3.0-4.0 cm LAIDs Index: 2.63 1.5-2.3 cm/m2 LV Mass: 203.33 67-162/88-224 g LV Mass Index: 127.08 43-95/49-115 g/m2 LVOT Diam: 2.10 3.0+(-)1.3 cm Mitral Valve MV Pk E: 1.24 MV Decel Time: 185.00 E'Lateral: 9.67 E'Medial: 7.16 E/E' Med: 17.30 E/E' Lat: 12.80 PHT: 54.00 MVA PHT: 4.07 Decel [place]: 6.70 MR Vol - PW Dopp: 24.89 MR VTI: 1.31 MR ERO: 19.00 MR Alias Puneet: 0.39 MR RAD: 0.60 Aortic Valve AoV Pk Puneet: 1.11 AoV Mn Puneet: 0.66 AoV VTI: 0.22 AoV Pk Grad: 5.00 Aov Mn Grad: 2.00 NICOLE Cont.VTI: 2.05 LVOT LVOT Pk Puneet: 0.67 LVOT Mn Puneet: 0.41 LVOT VTI: 0.13 LVOT Pk Grad: 2.00 LVOT Mn Grad: 1.00 LVOT Diam: 2.10 LVOT Area: 3.46 Diastolic Function MV Pk E: 1.24 E'Medial: 7.16 E/E' Med: 17.30 E' Laterial: 9.67 E/E' Lat: 12.80 Tricuspid Valve TR Pk Puneet: 2.76 TR Pk Grad: 30.00 RA Press: 3.00 RVSP: 33.00 Great Vessels Aorta Ao Root-2D: 3.30 2.0-3.7 cm Ao Asc: 3.00 2.1-3.4 cm Pulmonary Valve PV Pk Puneet: 0.71 Peak PV Grad: 2.00 Updated in Other Vendor System with Status of Final Gilberto Pepe MD electronically signed on 09/26/2020 9:22:30 AM with status of Final
[2020-09-25 10:16] LABS: Anion Gap 16 (12-20); Blood Urea Nitrogen 38 mg/dL (9-16); Carbon Dioxide 20 mmol/L (22-29); Chloride 106 mmol/L (96-108); Creatinine Clr Calc Pharmacy 24.2; Estimated Glomerular Filt Rate 35; Glucose Random 111 mg/dL (60-115); Sodium 138 mmol/L (135-145)
--- NOTE | 2020-09-25 12:30 | P.PNIM_ITS ---
Subjective Subjective Date of Service: 09/25/20 Interval History: Patient denies shortness of breath or chest pain had an uneventful night, tele monitor showed persistent AFib with stable ventricular rate. ROS General no headache, no dizziness no fever chills. CVS no chest pain, no palpitation. Respiratory no shortness of breath at rest, no cough Gastrointestinal no nausea, no vomiting, no abdominal pain Physical Exam Vital Signs: Vital Signs: Last Vital Signs Temp 96.6 F L 09/25/20 11:17 Pulse 84 09/25/20 11:17 Resp 20 09/25/20 11:17 BP 91/52 L 09/25/20 11:17 Pulse Ox 92 09/25/20 11:17 Body Mass Index 24.1 General resting comfortably in no acute distress. Neck no JVD. CVS irregular rate rhythm, Respiratory lungs clear to auscultation, no respiratory distress, no wheeze, no rhonchi. Gastrointestinal abdomen soft, nontender, bowel sounds audible, no guarding , no rigidity. Extremities no clubbing cyanosis or edema. Neuro nonfocal Skin no rash Objective Data Current Medications Generic Name Dose Route Start Last Admin Trade Name Freq PRN Reason Stop Dose Admin Acetaminophen 650 mg 09/24/20 16:10 Acetaminophen 325 Mg Tablet PO Q6H PRN PAIN Albuterol Sulfate 1 puff 09/24/20 16:10 Albuterol Sulfate 90 Mcg 8 Gm Inhaler INHALE Q4H PRN Respiratory Distress Apixaban 2.5 mg 09/24/20 21:00 09/25/20 08:51 Apixaban 2.5 Mg Tablet PO 2.5 mg BID JULIO Administration Metoprolol Tartrate 25 mg 09/24/20 21:00 09/25/20 08:51 Metoprolol Tartrate 25 Mg Tablet PO 25 mg BID JULIO Administration Protocol Omeprazole 20 mg 09/25/20 06:30 09/25/20 05:36 Omeprazole 20 Mg Capsule. PO 20 mg DAILY@0630 [facility] Administration Ondansetron HCl 4 mg 09/24/20 16:10 Ondansetron Hcl 4 Mg/2 Ml Vial IVPUSH Q8H PRN Nausea Pharmacy Consult 1 each 09/24/20 10:07 Consult Rx Perform Med Rec MISCELLANE ONCE PRN Consult order Labs CBC & Chem 7: 09/24/20 10:22 09/25/20 09:12 Assessment and Plan (1) MICHEL (dyspnea on exertion): Status: Acute (2) MARIE (acute kidney injury): Status: Acute (3) Atrial fibrillation: Status: Acute (4) Mitral regurgitation: Status: Acute (5) HTN (hypertension): Status: Chronic Assessment and Plan: 80-year-old female patient with past medical history of chronic obstructive pulmonary disease, moderate mitral regurgitation, diastolic heart failure, atrial fibrillation, status post cardioversion twice in the past, presented to [facility] with gradually worsening dyspnea on exertion.The patient noted to be in atrial fibrillation and has worsening renal function. 1. Dyspnea on exertion, question etiology, no shortness of breath chest pain or palpitation since admission since patient mostly in bed. persistent Atrial fibrillation with stable ventricular rate status post cardioversion x2 last year/ atelectasis/pulmonary hypertension/no evidence of acute heart failure, noted to have pulmonary nodules on prior chest CT Since no clear etiology found, will do a CT chest to compare with prior chest CT to rule out worsening pulmonary nodules question fibrosis will continue Eliquis and beta blockers for rate control. We will hold amiodarone for now and we will discuss the use of amiodarone after checking CT chest Encourage incentive spirometer, case discussed with Dr. Pepe he agrees that patient has no acute congestive heart failure and stable ventricular rate Follow echocardiogram and CT chest,tsh 4.8 2. Acute kidney injury. Likely due to use of extra dosage of diuretics at home, will continue to hold Lasix and irbesartan follow renal function closely. Avoid hypotension 3. Hypertension. Blood pressure is soft. Continue to hold Lasix and irbesartan. Continue metoprolol. 4. History of chronic obstructive pulmonary disease. No evidence of acute exacerbation at the present time,continue home inhalers. 5. Deep vein thrombosis prophylaxis. on Eliquis. 6. History of diastolic heart failure/pulmonary hypertension, no acute CHF noted. GI prophylaxis. continue omeprazole.
--- NOTE | 2020-09-25 13:13 | PM.PNCARD ---
Subjective Subjective Date of Service: 09/25/20 Interval history: Shortness of breath for the last 3 weeks or so. She had recently returned from [place]. She states that she was doing a lot of house cleaning as they were setting home. She is not sure if she did too much and that started all these symptoms. Review of Systems Review of Systems Yes all other systems are reviewed and are negative Cardiovascular: Reports as per HPI, Reports no additional cardiovascular complaints, Denies acrocyanosis, Denies cool extremities, Denies painful fingertips, Denies chest pain, Denies chest pain at rest, Denies diaphoresis, Denies syncope, Denies irregular heart rhythm, Denies claudication, Denies leg edema, Denies lightheadedness, Denies palpitations and Reports dyspnea Respiratory: Reports dyspnea Denies syncope Endocrine: Denies palpitations Physical Exam Vital Signs: Last Vital Signs Temp 96.6 F L 09/25/20 11:17 Pulse 84 09/25/20 11:17 Resp 20 09/25/20 11:17 BP 91/52 L 09/25/20 11:17 Pulse Ox 92 09/25/20 11:17 Body Mass Index 24.1 Const General: cooperative, comfortable and no acute distress Orientation/consciousness: patient oriented x3 HENMT Other: Unremarkable Neck Neck: Yes normal visual inspection Chest Chest palpation & inspection: normal inspection of the chest Resp Auscultation: clear to auscultation bilaterally, crackles (bases b/l) and no wheezes Cardio Jugular venous distension: no JVD Palpation: normal PMI Heart sounds: S1 normal heart sound present, S2 normal heart sound present, no gallops, no murmurs and no rubs GI Palpation (GI): Soft to palpation Back/Spine/Pelvis Other: unremarkable Skin General skin exam: no rashes or lesions noted Neuro General: patient oriented x3 Extrem General: Yes no clubbing, cyanosis or edema Psych Mental Status: mental status grossly normal Results Labs and Meds Result diagrams: 09/24/20 10:22 09/25/20 09:12 Lab results: Laboratory Results - last 24 hr 09/25/20 09:12 Sodium 138 Potassium 4.0 Chloride 106 Carbon Dioxide 20 L Anion Gap 16 BUN 38 H Creatinine 1.44 H Estim Creat Clear Calc 24.2 Estimated GFR 35 Random Glucose 111 Calcium 8.0 L ECG Attestation: I personally reviewed and interpreted this ECG as follows: Interpretation: Admission EKG with atrial fibrillation at 93/Min. In prior EKG from May 2020, she was in sinus rhythm. Imaging Radiologist's impression: Impressions Chest X-Ray 09/24/20 10:08 IMPRESSION: Unremarkable chest exam. Progress Note: A&P Assessment and plan (1) Persistent atrial fibrillation: Status: Acute (2) MICHEL (dyspnea on exertion): Status: Acute (3) Chronic diastolic (congestive) heart failure: Status: Acute Assessment and Plan: Reviewing her cardiac BNPs, current value is 322. In May it was 908 and 2019 was 1500. Overall this is the lowest it has ever been. Clinically, she does not appear volume overloaded at all. I am wondering if for shortness of breath is more pulmonary in nature related to her COPD. We need to also check for any pulmonary fibrosis related to amiodarone. Hence we can start with the chest CT scan. Echocardiogram is also pending. She is in atrial fibrillation on telemetry but the rate is quite well controlled and hence I doubt if that is truly the cause of symptoms. Will follow with you. Fall Risk Details Current Medications: Current Medications Generic Name Dose Route Start Last Admin Trade Name Freq PRN Reason Stop Dose Admin Acetaminophen 650 mg 09/24/20 16:10 Acetaminophen 325 Mg Tablet PO Q6H PRN PAIN Albuterol Sulfate 1 puff 09/24/20 16:10 Albuterol Sulfate 90 Mcg 8 Gm Inhaler INHALE Q4H PRN Respiratory Distress Apixaban 2.5 mg 09/24/20 21:00 09/25/20 08:51 Apixaban 2.5 Mg Tablet PO 2.5 mg BID JULIO Administration Metoprolol Tartrate 25 mg 09/24/20 21:00 09/25/20 08:51 Metoprolol Tartrate 25 Mg Tablet PO 25 mg BID JULIO Administration Protocol Omeprazole 20 mg 09/25/20 06:30 09/25/20 05:36 Omeprazole 20 Mg Capsule. PO 20 mg DAILY@0630 JULIO Administration Ondansetron HCl 4 mg 09/24/20 16:10 Ondansetron Hcl 4 Mg/2 Ml Vial IVPUSH Q8H PRN Nausea Pharmacy Consult 1 each 09/24/20 10:07 Consult Rx Perform Med Rec MISCELLANE ONCE PRN Consult order Time Spent With Patient Time: Total time spent is greater than 50% in coordination of care (as documented) at patient's floor/unit and/or counseling patient: Time with patient: 15 - 24 minutes Procedures Date of Service Date of Service: 09/25/20
--- NOTE | 2020-09-25 15:17 | MHC.CM.PN ---
IMM 09/25/20 Female DX SOB lives with her . She is independent all functional mobility. DP home no servies family transport. CM will follow.
[2020-09-26] VITALS (7 sets, daily range): BP systolic 88–112; BP diastolic 54–62; PULSE 81–88; RESP 14–18; TEMP 36.2–36.9; O2SAT 88–95
[2020-09-26] MEDS: Omeprazole 20 MG CAPSULE.DR PO (06:07)
[2020-09-26 07:42] LABS: Blood Urea Nitrogen 37 mg/dL (9-16); Calcium 8.1 mg/dL (8.4-10.2); Creatinine Clr Calc Pharmacy 25.6; Estimated Glomerular Filt Rate 37; Glucose Random 101 mg/dL (60-115)
[2020-09-26 08:04] LABS: Anion Gap 13 (12-20); Carbon Dioxide 22 mmol/L (22-29); Chloride 107 mmol/L (96-108); Potassium 4.5 mmol/L (3.3-5.1); Sodium 137 mmol/L (135-145)
[2020-09-26] MEDS: Apixaban 2.5 MG TABLET PO (08:10)
[2020-09-26] MEDS: Metoprolol Tartrate 25 MG TABLET PO (08:10)
--- NOTE | 2020-09-26 10:35 | P.PNCA_ITS ---
Subjective Subjective Date of Service: 09/26/20 Interval history: She still has shortness of breath. No other symptoms. Review of Systems Review of Systems Yes all other systems are reviewed and are negative Cardiovascular: Reports as per HPI, Reports no additional cardiovascular complaints, Denies acrocyanosis, Denies cool extremities, Denies painful fing ertips, Denies chest pain, Denies chest pain at rest, Denies diaphoresis, Denies syncope, Denies irregular heart rhythm, Denies claudication, Denies leg edema, Denies lightheadedness, Denies palpitations and Reports dyspnea Respiratory: Reports dyspnea Denies syncope Endocrine: Denies palpitations Physical Exam Vital Signs: Last Vital Signs Temp 97.1 F 09/26/20 07:48 Pulse 88 09/26/20 08:10 Resp 18 09/26/20 07:48 BP 112/61 09/26/20 08:10 Pulse Ox 93 09/26/20 07:48 Body Mass Index 24.1 Const General: cooperative, comfortable and no acute distress Orientation/consciousness: patient oriented x3 HENMT Other: Unremarkable Neck Neck: Yes normal visual inspection Chest Chest palpation & inspection: normal inspection of the chest Resp Auscultation: clear to auscultation bilaterally, crackles (bases b/l) and no wheezes Cardio Jugular venous distension: no JVD Palpation: normal PMI Heart sounds: S1 normal heart sound present, S2 normal heart sound present, no gallops, no murmurs and no rubs GI Palpation (GI): Soft to palpation Back/Spine/Pelvis Other: unremarkable Skin General skin exam: no rashes or lesions noted Neuro General: patient oriented x3 Extrem General: Yes no clubbing, cyanosis or edema Psych Mental Status: mental status grossly normal Results Labs and Meds Result diagrams: 09/24/20 10:22 09/26/20 06:17 Lab results: Laboratory Results - last 24 hr 09/26/20 06:17 Sodium 137 Potassium 4.5 Chloride 107 Carbon Dioxide 22 Anion Gap 13 BUN 37 H Creatinine 1.36 Estim Creat Clear Calc 25.6 Estimated GFR 37 Random Glucose 101 Calcium 8.1 L Imaging Radiologist's impression: Impressions Chest CT 09/25/20 13:20 IMPRESSION: Severe emphysema and question mild interstitial lung disease. New 3 x 6 mm irregularly-shaped right upper lobe nodule. Stable 5 x 10 mm groundglass attenuation right upper lobe nodule. Multiple new nodules on recent exam May 2020 are no longer seen. Continued chest CT follow-up of right upper lobe nodules recommended. Mild dilatation of the aortic arch. Prominent pulmonary arteries. Mild coronary artery calcification. Stable abdominal findings. Progress Note: A&P Assessment and plan (1) Persistent atrial fibrillation: Status: Acute (2) MICHEL (dyspnea on exertion): Status: Acute (3) Chronic diastolic (congestive) heart failure: Status: Acute Assessment and Plan: Reviewing her cardiac BNPs, current value is 322. In May it was 908 and 2018 was 1500. Overall this is the lowest it has ever been. Clinically, she does not appear volume overloaded at all. CT chest done yesterday shows severe emphysema and possible mild interstitial lung disease. Hence her shortness of breath could be much more from her pulmonary issues than cardiac. We can stop the amiodarone as she remains in atrial fibrillation in spite of 2 cardioversions. She is in atrial fibrillation on telemetry but the rate is quite well controlled and hence I doubt if that is truly the cause of symptoms. Can ask for pulmonary consult. Upon discharge, we will arrange followup. Fall Risk Details Current Medications: Current Medications Generic Name Dose Route Start Last Admin Trade Name Freq PRN Reason Stop Dose Admin Acetaminophen 650 mg 09/24/20 16:10 Acetaminophen 325 Mg Tablet PO Q6H PRN PAIN Albuterol Sulfate 1 puff 09/24/20 16:10 Albuterol Sulfate 90 Mcg 8 Gm Inhaler INHALE Q4H PRN Respiratory Distress Apixaban 2.5 mg 09/24/20 21:00 09/26/20 08:10 Apixaban 2.5 Mg Tablet PO 2.5 mg BID JULIO Administration Metoprolol Tartrate 25 mg 09/24/20 21:00 09/26/20 08:10 Metoprolol Tartrate 25 Mg Tablet PO 25 mg BID JULIO Administration Protocol Omeprazole 20 mg 09/25/20 06:30 09/26/20 06:07 Omeprazole 20 Mg Capsule. PO 20 mg DAILY@0630 JULIO Administration Ondansetron HCl 4 mg 09/24/20 16:10 Ondansetron Hcl 4 Mg/2 Ml Vial IVPUSH Q8H PRN Nausea Pharmacy Consult 1 each 09/24/20 10:07 Consult Rx Perform Med Rec MISCELLANE ONCE PRN Consult order Time Spent With Patient Time: Total time spent is greater than 50% in coordination of care (as documented) at patient's floor/unit and/or counseling patient: Time with patient: less than 15 minutes Procedures Date of Service Date of Service: 09/26/20
--- NOTE | 2020-09-26 12:59 | HO.PM.IMPN ---
Subjective Subjective Date of Service: 09/26/20 Physical Exam Vital Signs: Vital Signs: Last Vital Signs Temp 98.5 F 09/26/20 11:08 Pulse 81 09/26/20 11:08 Resp 14 09/26/20 11:08 BP 88/56 L 09/26/20 11:08 Pulse Ox 91 L 09/26/20 11:12 Body Mass Index 24.1 Objective Data Current Medications Generic Name Dose Route Start Last Admin Trade Name Freq PRN Reason Stop Dose Admin Acetaminophen 650 mg 09/24/20 16:10 Acetaminophen 325 Mg Tablet PO Q6H PRN PAIN Albuterol Sulfate 1 puff 09/24/20 16:10 Albuterol Sulfate 90 Mcg 8 Gm Inhaler INHALE Q4H PRN Respiratory Distress Apixaban 2.5 mg 09/24/20 21:00 09/26/20 08:10 Apixaban 2.5 Mg Tablet PO 2.5 mg BID JULIO Administration Metoprolol Tartrate 25 mg 09/24/20 21:00 09/26/20 08:10 Metoprolol Tartrate 25 Mg Tablet PO 25 mg BID JULIO Administration Protocol Omeprazole 20 mg 09/25/20 06:30 09/26/20 06:07 Omeprazole 20 Mg Capsule.Dr PO 20 mg DAILY@0630 JULIO Administration Ondansetron HCl 4 mg 09/24/20 16:10 Ondansetron Hcl 4 Mg/2 Ml Vial IVPUSH Q8H PRN Nausea Pharmacy Consult 1 each 09/24/20 10:07 Consult Rx Perform Med Rec MISCELLANE ONCE PRN Consult order Labs CBC & Chem 7: 09/24/20 10:22 09/26/20 06:17
--- NOTE | 2020-09-26 14:11 | P.CONPL_ITS ---
History of Present Illness History of Present Illness Consult date: 09/26/20 Chief complaint: Dyspnea on exertion Narrative: The patient is an 80-year-old woman with a known history of atrial fibrillation congestive heart failure and COPD. She was a lifelong smoker. She is currently seeing a local faculty physician. Recently she had pulmonary function studies although I do not have those results. 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 It was a lot of work and she felt that she over worked herself. She started having increasing shortness of breath. She has had multiple evaluations already for her shortness of breath with significant atrial fibrillation with rapid ventricular response. Again, she was seen by her assistant manager quality management and she was significant short of breath. She was referred to the ER for further care. There she was admitted to the hospital with AFib with rapid ventricular response in addition to COPD. As part of the workup she did have a CTA demonstrating moderate amount of emphysema along with some pulmonary nodules and atelectasis at the bases. The patient has been taking her short-acting beta agonist as needed. We did talk about the problems with beta agonist potentially affecting her atrial fibrillation. Therefore will start her on long-acting muscarinic antagonist. The patient is aware of the pulmonary nodules will need follow-up. It is reassuring that these nodules have not changed when compared to her CT scan from May 2020. The patient does have evidence of underlying obstructive sleep apnea. She has daytime drowsiness with an elevated [place] score of 10/24. The patient also has a history of pulmonary hypertension and atrial fibrillation. Therefore we talked about the importance of having a sleep study will upon follow up with Pulmonary as an outpatient. The patient is agreeable at this point. In addition to that the patient has pulse ox is on the low side. She wants to go home today. Therefore, will have her follow up closely with Pulmonary in have her undergo a 6 minutes walk test. We can also request her PFTs from [facility] to assess her degree of COPD. Review of Systems Constitutional: Constitutional: Denies night sweats ENT: Denies change in voice, Denies lip swelling, Denies mouth pain, Reports nasal congestion, Reports nasal discharge and Denies tongue swelling Cardiovascular: Cardiovascular: Denies chest pain, Reports irregular heart rhythm, Reports palpitations and Reports dyspnea on exertion Respiratory: Respiratory: Reports cough and Reports dyspnea on exertion Gastrointestinal: Gastrointestinal: Denies abdominal pain Musculoskeletal: Musculoskeletal: Denies no additional musculoskeletal complaints Neurologic: Denies Neuro-related abnormal movements Psychiatric: Psychiatric: Denies no additional psychiatric complaints Endocrine: Endocrine: Reports palpitations Hematologic/Lymphatic: Hematologic/Lymphatic: Denies easy bleeding and Denies lymphadenopathy Allergic/Immunologic: Allergic/Immunologic: Denies lip swelling and Denies tongue swelling PMFSH Past Medical History Medical History (Updated 09/26/20 @ 14:13 by Nando Fuentes MD) Afib Breast cancer Chronic back pain Chronic diastolic (congestive) heart failure COPD (chronic obstructive pulmonary disease) Diverticulitis HTN (hypertension) Mitral regurgitation Persistent atrial fibrillation Pulmonary hypertension Pulmonary nodules Family History Family History Father No problems noted. Mother No problems noted. Surgical History Surgical History History of appendectomy History of bilateral knee replacement Status post right breast lumpectomy Social History Social History Household Members: Spouse Housing: House Do you presently have visiting nurse or other home services: No Alcohol intake: never Smoking Status: Former smoker Smoked in Last 30 Days: No Smoking Quit Date: 30 years ago Second Hand Smoke Exposure: No Use of substances other than those prescribed or required for medical reasons: No Currently Displaying Signs/Symptoms of Drug Intoxication Withdrawal: No Have you been hit, kicked, punched, or otherwise hurt by someone within the past year? If so, by whom?: No Do you feel safe in your current relationship?: Yes Is there a partner from a previous relationship who is making you feel unsafe now?: No Are you made to feel afraid or neglected: No Advance Directives: No Advance Directives Information Provided: No Do you have thoughts of harming others: None Do you have a plan to hurt others: No Plan Recently lost weight without trying: No service: No Current occupational status: retired Meds Allergies Allergy/AdvReac Type Severity Reaction Status Date / Time No Known Allergies Allergy Verified 06/15/20 13:52 [No Known Allergies*] Active Medications: Current Medications Generic Name Dose Route Start Last Admin Trade Name Freq PRN Reason Stop Dose Admin Acetaminophen 650 mg 09/24/20 16:10 Acetaminophen 325 Mg Tablet PO Q6H PRN PAIN Albuterol Sulfate 1 puff 09/24/20 16:10 Albuterol Sulfate 90 Mcg 8 Gm Inhaler INHALE Q4H PRN Respiratory Distress Apixaban 2.5 mg 09/24/20 21:00 09/26/20 08:10 Apixaban 2.5 Mg Tablet PO 2.5 mg BID JULIO Administration Metoprolol Tartrate 25 mg 09/24/20 21:00 09/26/20 08:10 Metoprolol Tartrate 25 Mg Tablet PO 25 mg BID JULIO Administration Protocol Omeprazole 20 mg 09/25/20 06:30 09/26/20 06:07 Omeprazole 20 Mg Capsule. PO 20 mg DAILY@0630 [facility] Administration Ondansetron HCl 4 mg 09/24/20 16:10 Ondansetron Hcl 4 Mg/2 Ml Vial IVPUSH Q8H PRN Nausea Pharmacy Consult 1 each 09/24/20 10:07 Consult Rx Perform Med Rec MISCELLANE ONCE PRN Consult order Home Medications Medication Instructions Recorded Confirmed Last Taken Type Eliquis 5 mg PO BID 05/03/20 09/24/20 09/24/20 History amlodipine 5 mg PO DAILY 05/03/20 09/24/20 09/24/20 History irbesartan 150 mg PO DAILY 05/03/20 09/24/20 09/24/20 History omeprazole 20 mg PO DAILY 05/03/20 09/24/20 09/24/20 History albuterol sulfate 1 puff INHALATION Q4H PRN 09/24/20 09/24/20 Unknown History furosemide 20 mg tablet 20 mg PO DAILY tab 09/24/20 09/24/20 09/24/20 History Physical Exam Vital Signs: Vital Signs: Last Vital Signs Temp 98.5 F 09/26/20 11:08 Pulse 81 09/26/20 11:08 Resp 14 09/26/20 11:08 BP 88/56 L 09/26/20 11:08 Pulse Ox 91 L 09/26/20 11:12 Body Mass Index 24.1 Const: General: alert Neck: Neck: Yes normal visual inspection, Yes full ROM and Yes no lymphadenopathy Chest: Chest palpation & inspection: normal inspection of the chest Resp: Auscultation: diminished lung sounds Cardio: Rate: regular rate Rhythm: regular rhythm Heart sounds: S1 normal heart sound present and S2 normal heart sound present GI: Palpation (GI): Soft to palpation and nontender Auscultation: normal bowel sounds : General: Yes no CVA tenderness Back/Spine/Pelvis: Back: no CVA tenderness Skin: General skin exam: rashes and/or lesions noted Results Laboratory Findings CBC and BMP: 09/24/20 10:22 09/26/20 06:17 ABG, PT/INR, D-dimer: PT/INR, D-dimer PT 25.0 SEC (10.8-13.0) H 09/24/20 10:22 INR 2.1 (0.9-1.1) H 09/24/20 10:22 Abnormal lab findings: Abnormal Labs 09/24/20 09/24/20 09/24/20 10:22 10:22 10:22 RBC 4.04 L Immature Gran % (Auto) 1.9 H Neut % (Auto) 80.0 H Lymph % (Auto) 8.5 L Lymph # (Auto) 0.5 L Abs Immat Gran (auto) 0.12 H PT 25.0 H INR 2.1 H Carbon Dioxide 21 L BUN 46 H Creatinine 2.08 H Calcium B-Natriuretic Peptide Total Protein 6.3 L Albumin 3.4 L TSH 4.80 H 09/24/20 09/25/20 09/26/20 10:22 09:12 06:17 RBC Immature Gran % (Auto) Neut % (Auto) Lymph % (Auto) Lymph # (Auto) Abs Immat Gran (auto) PT INR Carbon Dioxide 20 L BUN 38 H 37 H Creatinine 1.44 H Calcium 8.0 L 8.1 L B-Natriuretic Peptide 322 H Total Protein Albumin TSH Assessment and Plan (1) MICHEL (dyspnea on exertion): Status: Acute (2) COPD (chronic obstructive pulmonary disease): Qualifiers: COPD type: emphysema Emphysema type: centrilobular Qualified Code(s): J43.2 - Centrilobular emphysema Status: Acute (3) Pulmonary nodules: Status: Acute (4) Atrial fibrillation: Qualifiers: Atrial fibrillation type: paroxysmal Qualified Code(s): I48.0 - Paroxysmal atrial fibrillation Status: Acute Start Incruse 1 inhalation daily Continue short-acting beta agonist as needed Will need a follow-up in the Pulmonary office and have a 6 minutes walk test Will request PFTs from [facility] Follow-up pulmonary nodules Likely will benefit from a sleep study Procedures Date of Service Date of Service: 09/26/20
--- NOTE | 2020-09-26 15:39 | P.DS_ITS ---
DS: Providers Provider Date of Service: 09/26/20 Date of admission: 09/24/20 13:26 Primary care physician: Tavo Jain MD Consults: 09/24/20 16:10 Consult to Cardiology Routine Consulting Provider: Ricardo Lackey Reason for consultation: Dyspnea on exertion 09/26/20 10:50 Consult to Pulmonology Routine Consulting Provider: Nando Fuentes Reason for consultation: copd, not on any meds DS: Diagnosis Discharge Diagnosis (1) Dyspnea on exertion: Status: Acute (2) Persistent atrial fibrillation: Status: Acute (3) MARIE (acute kidney injury): Status: Acute (4) HTN (hypertension): Status: Chronic (5) Chronic diastolic (congestive) heart failure: Status: Acute DS: Medications Discharge Medications Home Medications: Home Medications Medication Instructions Recorded Confirmed Eliquis 5 mg PO BID 05/03/20 09/24/20 omeprazole 20 mg PO DAILY 05/03/20 09/24/20 albuterol sulfate 1 puff INHALATION Q4H PRN 09/24/20 09/24/20 Previous Rx's Medication Instructions Recorded metoprolol tartrate 25 mg tablet 25 mg PO BID #120 tab 06/16/20 umeclidinium [Incruse Ellipta] 1 inh INHALATION Q24H #30 ea 09/26/20 DS: Summary Hospital Course Hospital Course: Patient presented with acute kidney injury and progressive dyspnea with minimal exertion. Initially her symptoms were felt secondary to persistent AFib with variable ventricular response, pulmonary HTN, atelectasis. However upon further evaluation which included cardiology consultation and CT scan of the chest her symptoms were likely attributed to progressive COPD/emphysema. He she did not have any active COPD exacerbations but nonetheless due to her severity of symptoms as well as patient's request to have a local plastic sheets finishing supervisor, pulmonology was consulted. Pulmonary recommended short-acting beta agonist and Incruse Ellipta. They will be following up with her in the pulmonary clinic for a 6 min utes walk test as well as possible repeat pulmonary function test. In regards to her acute kidney injury this resolved with her diuretics and ARBs held. She was found to be on multiple antihypertensives with a soft disc blood pressure. Norvasc, irbesartan, Lasix were held during hospitalization as well as of the time of discharge. She will be continued on metoprolol 25mg bid. Time Spent with Patient Time attestation: Total time spent providing and/or coordinating discharge services: Discharge coordination time: Greater than 30 minutes Physical Exam Vital Signs: Vital Signs: Last Vital Signs Temp 98.5 F 09/26/20 11:08 Pulse 81 09/26/20 11:08 Resp 14 09/26/20 11:08 BP 102/58 L 09/26/20 14:42 Pulse Ox 91 L 09/26/20 11:12 Body Mass Index 24.1 DS: Data Data Completed and Pending Completed studies during hospitalization [Text1]: Procedures [employer] of Cardiac Rhythm, Single (05/27/20) Labs on day of discharge: Laboratory Results - last 24 hr 09/26/20 06:17 Sodium 137 Potassium 4.5 Chloride 107 Carbon Dioxide 22 Anion Gap 13 BUN 37 H Creatinine 1.36 Estim Creat Clear Calc 25.6 Estimated GFR 37 Random Glucose 101 Calcium 8.1 L Discharge Plan Discharge Patient Disposition: Home, Self-Care Referrals: Tavo Jain MD [Primary Care Provider] - Nando Fuentes MD [Physician] - Discharge Medications: New Incruse Ellipta 62.5 mcg/actuation blister with device 1 inh inhalation Q24H Qty: 30 RF: 0 Continued metoprolol tartrate 25 mg tablet 25 mg PO BID Qty: 120 RF: 3 albuterol sulfate 90 mcg/actuation Hfa Aerosol Inhaler 1 puff INHALATION Q4H PRN (Reason: Respiratory Distress) RF: 0 omeprazole 20 mg Capsule,Delayed Release(Dr/Ec) 20 mg PO DAILY RF: 0 Eliquis 5 mg Tablet 5 mg PO BID RF: 0 Discontinued amiodarone 200 mg tablet 200 mg PO DAILY 90 Days Qty: 90 RF: 3 amlodipine 5 mg Tablet 5 mg PO DAILY RF: 0 irbesartan 150 mg Tablet 150 mg PO DAILY RF: 0 furosemide 20 mg tablet 20 mg PO DAILY RF: 0 Discharge Orders: Discharge Order (Routine); Ordered 09/26/20 Ordered By: Gilberto Berman Diet: advance to usual diet Activity on Discharge: As tolerated Stand Alone Forms: Patient Portal Discharge page Care Plan Goals: To stay healthy and out of the hospital. Health Concerns: COPD A. Fib Hypertension Lung nodules Plan of Treatment: COPD - continue albuterol, take Incurse, f/u with Dr. Alfredo Herrera Fib - Stop Amiodarone, Take Eliquis, Continue metoprolol Hypertension - continue metoprolol, do not take furosemide or amlodipine MARIE - do not take ibesartan Lung nodules - follow up with Dr. Jain
--- NOTE | 2020-09-26 15:44 | MHC.CM.PN ---
Pt cleared to DC today, home with no services. Per CM notes, family will provide transportation
== END 2020-09-26 16:06 | disposition home or self-care (01) | DRG 191 ==
LOC: HO.ED 12:00 → HO.EDOVER 14:05 → HO.IMC 14:27
PROVIDERS: Admitting Provider Hospitalist; Emergency Provider Emergency Medicine; PCP Internal Medicine Medical Oncology; Visit Provider Family Medicine
DX: J43.2 Centrilobular emphysema (principal); N17.9 Acute kidney failure, unspecified; I50.32 Chronic diastolic (congestive) heart failure; I48.0 Paroxysmal atrial fibrillation; I11.0 Hypertensive heart disease with heart failure; I34.0 Nonrheumatic mitral (valve) insufficiency; Z20.822 Contact with and (suspected) exposure to COVID-19; Z96.653 Presence of artificial knee joint, bilateral; Z79.01 Long term (current) use of anticoagulants; Z79.899 Other long term (current) drug therapy
CPT/HCPCS: 36415; 71045; 71250; 80048; 80053; 80076; 83735; 83880; 84443; 84484; 85025; 85610; 85730; 87635; 93005; 93306; 99285

== ENCOUNTER → 2020-09-29 13:41 | Outpatient (BNVA) | payer MEDICARE, SELFPAY | PROVIDERS: PCP Internal Medicine Medical Oncology; Visit Provider Internal Medicine | DX: R06.00 Dyspnea, unspecified (principal); J43.2 Centrilobular emphysema; Z99.81 Dependence on supplemental oxygen; Z79.51 Long term (current) use of inhaled steroids | CPT/HCPCS: 99212 ==

== ENCOUNTER → 2020-10-05 10:02 | Outpatient (BNVA) | payer MEDICARE, SELFPAY | PROVIDERS: PCP Internal Medicine Medical Oncology; Visit Provider Nurse Practitioner Family | DX: I48.19 Other persistent atrial fibrillation (principal); R06.00 Dyspnea, unspecified; R09.02 Hypoxemia; Z99.81 Dependence on supplemental oxygen; Z87.891 Personal history of nicotine dependence; Z79.899 Other long term (current) drug therapy | CPT/HCPCS: 99212 ==

== ENCOUNTER → 2020-10-29 14:46 | Outpatient (BNVA) | payer MEDICARE, SELFPAY | PROVIDERS: PCP Internal Medicine Medical Oncology; Visit Provider Internal Medicine | DX: R06.00 Dyspnea, unspecified (principal); I48.19 Other persistent atrial fibrillation; R91.8 Other nonspecific abnormal finding of lung field; R09.02 Hypoxemia; Z99.81 Dependence on supplemental oxygen | CPT/HCPCS: 99212 ==

== ENCOUNTER → 2020-11-26 09:43 | Outpatient (BNVA) | payer MEDICARE, SELFPAY | PROVIDERS: PCP Internal Medicine Medical Oncology; Visit Provider Internal Medicine | DX: R91.8 Other nonspecific abnormal finding of lung field (principal); R06.00 Dyspnea, unspecified; R09.02 Hypoxemia; J44.9 Chronic obstructive pulmonary disease, unspecified; Z99.81 Dependence on supplemental oxygen | CPT/HCPCS: 99212 ==

== ENCOUNTER 2021-03-02 12:19 | Outpatient (REF) | payer MEDICARE, SELFPAY ==
[2021-03-02 13:02] LABS: Glucose Urine UA NEG (NEG); Leukocyte Esterase Urine 2+ (NEG); Nitrite Urine NEG (NEG); Specific Gravity - Urine 1.025 (1.005-1.025); Urine Blood NEG (NEG); Urine Ketones 5 MG/DL (NEG); Urine Protein TRACE MG/DL (NEG-TRACE)
[2021-03-02 13:06] LABS: Color Urine YELLOW
[2021-03-02 13:07] LABS: Appearance Urine CLOUDY
[2021-03-02 13:14] LABS: Bacteria Urine 2+ /LPF; RBC Urine 0 /HPF (0); Squamous Epithelial Cell Urine TRACE /LPF; WBC Urine 30-49 /HPF (0-4)
== END 2021-03-02 12:20 | disposition home or self-care (01) ==
LOC: HO.LAB 12:19
PROVIDERS: PCP Internal Medicine Medical Oncology; Visit Provider Internal Medicine Medical Oncology
DX: N39.0 Urinary tract infection, site not specified (principal); R30.0 Dysuria
CPT/HCPCS: 81001; 81003; 87086; 87088; 87186

== ENCOUNTER 2021-03-23 08:31 | Outpatient (REF) | payer MEDICARE, SELFPAY ==
--- NOTE | ~2021-03-23 | MM_ITS ---
EXAMINATION: BONE DENSITOMETRY CLINICAL INDICATION: Postmenopausal. History of breast cancer. COMPARISON: Previous BD dated 03/08/2016 and baseline BD dated 01/15/2009. TECHNIQUE: Using a [employer] DXA System (software version: 13.1) manufactured by [employer], dual-energy x-ray absorptiometry was performed of the lumbar spine and left hip. The images are of good technical quality. Summary results are attached. FINDINGS: AP SPINE L1-L4: Current: BMD 1.268 g/cm2, Z-score 2.8, T-score 0.7, normal, 2.5% decrease from previous, 9.4% increase from baseline (<5% change is not significant). Prior: BMD 1.301 g/cm2. Baseline: BMD 1.159 g/cm2. LEFT FEMUR, NECK: Current: BMD 0.733 g/cm2, Z-score 0.2, T-score -2.2, osteopenia. Prior: BMD 0.765 g/cm2. Baseline: BMD 0.803 g/cm2. LEFT FEMUR, TOTAL: Current: BMD 0.765 g/cm2, Z-score 0.3, T-score -1.9, osteopenia, 9.9% decrease from previous, 11.3% decrease from baseline (<5% change is not significant). Prior: BMD 0.849 g/cm2. Baseline: BMD 0.862 g/cm2. IDENTIFIED RISK FACTORS: Menopause, history of fracture (adult). HISTORY OF FRACTURE: Shoulder. MEDICATIONS: None listed. MM/XR DEXA axial skeleton IMPRESSION: 1. DIAGNOSIS: Osteopenia based on the lowest T-score value of -2.2 in the femoral neck applying World Health Organization criteria. 2. 10-YEAR FRACTURE RISK PREDICTION, FRAX: Major osteoporotic fracture (clinical spine, forearm, hip or shoulder) 24.4%. Hip fracture 7.5%. 3. Treatment Recommendations: NOF guidelines recommend consideration for treatment in postmenopausal women and men age 50 and older presenting with the following: -A hip or vertebral (clinical or morphometric) fracture. -T-score less than or equal to -2.5 at the femoral neck or spine after appropriate evaluation to exclude secondary causes. -Low bone mass at the hip or spine and a 10-year fracture probability by FRAX of greater than or equal to 3% for hip fracture or greater than or equal to 20% for major osteoporotic fracture based on the [place] adapted WHO algorithm. 4. Other Recommendations: All treatment decisions require clinical judgment and consideration of individual patient factors, including patient preferences, comorbidities, previous drug use, risk factors not captured in the FRAX model (e.g. frailty, falls, vitamin D deficiency, increased bone turnover, interval significant decline in bone density) and possible under or overestimation of fracture risk by FRAX. Additional medical evaluation for secondary cause of low bone mineral density may be appropriate. FUTURE SCAN RECOMMENDATION: People with diagnosed cases of osteoporosis or at high risk for fracture should have regular bone mineral density tests. For patients eligible for Medicare, routine testing is allowed once every 2 years. The testing frequency can be increased to one year for patients who have rapidly progressing disease, those who are receiving or discontinuing medical therapy to restore bone mass, or have additional risk factors.
== END 2021-03-23 08:32 | disposition home or self-care (01) ==
LOC: HO.MAMMO 08:31
PROVIDERS: PCP Internal Medicine Medical Oncology; Visit Provider Internal Medicine Medical Oncology
DX: Z13.820 Encounter for screening for osteoporosis (principal); M81.0 Age-related osteoporosis without current pathological fracture; C50.411 Malignant neoplasm of upper-outer quadrant of right female breast; Z78.0 Asymptomatic menopausal state; Z87.81 Personal history of (healed) traumatic fracture
CPT/HCPCS: 77080

== ENCOUNTER 2021-05-04 11:17 | Outpatient (REF) | payer MEDICARE, SELFPAY | END 2021-05-04 11:18 | disposition home or self-care (01) | LOC: HO.LAB 11:17 | PROVIDERS: PCP Internal Medicine Medical Oncology; Visit Provider Internal Medicine Medical Oncology | DX: R35.0 Frequency of micturition (principal) | CPT/HCPCS: 87086 ==

== ENCOUNTER 2021-08-17 13:46 | Outpatient (REF) | payer MEDICARE, SELFPAY ==
[2021-08-17 14:07] LABS: MANUAL DIFF FLAG NO
[2021-08-17 14:25] LABS: Basophils Percent Auto 0.4 % (0-2); Eosinophils Percent Auto 0.4 % (0-4); Hematocrit 34.1 % (37.0-47.0); Hemoglobin 11.1 g/dl (12.0-16.0); Imm Gran Abs Auto 0.16 X10*3/uL (0.00-0.03); Imm Gran Pct Auto 2.1 % (0.0-0.4); Lymphocytes Absolute Auto 1.3 X10*3/uL (1.2-4.9); Lymphocytes Percent Auto 17.1 % (20-40); Mean Corpuscular HGB Conc 32.6 g/dl (31.0-35.0); Mean Corpuscular Hemoglobin 30.2 pg (27.0-33.0); Mean Corpuscular Volume 92.7 fL (80.0-98.0); Monocytes Absolute Auto 0.7 X10*3/uL (0.1-1.2); Monocytes Percent Auto 8.9 % (2-11); Neutrophils Absolute Auto 5.5 x10*3/uL (2.0-8.3); Neutrophils Percent Auto 71.1 % (45-73); Platelet Count 221 X10*3/uL (160-400); Red Blood Count 3.68 X10*6/uL (4.20-5.50); Red Cell Distribution Width 16.4 % (11.0-16.0); White Blood Count 7.7 X10*3/uL (4.8-10.8)
[2021-08-17 14:51] LABS: Alanine Aminotransferase 27 U/L (0-31); Albumin Level 3.6 g/dL (3.5-5.0); Alkaline Phosphatase 123 U/L (39-117); Anion Gap 13 (12-20); Aspartate Amino Transferase 16 U/L (5-31); Bilirubin Total 0.6 mg/dL (0.0-1.0); Blood Urea Nitrogen 26 mg/dL (9-16); Calcium 9.2 mg/dL (8.4-10.2); Carbon Dioxide 20 mmol/L (22-29); Chloride 109 mmol/L (96-108); Estimated Glomerular Filt Rate 36; Glucose Random 107 mg/dL (60-115); Potassium 4.4 mmol/L (3.3-5.1); Sodium 138 mmol/L (135-145); Total Protein 6.6 g/dL (6.5-8.0)
[2021-08-17 15:13] LABS: TSH reflex Free T4 2.46 uIU/mL (0.32-4.0)
== END 2021-08-17 13:47 | disposition home or self-care (01) ==
LOC: HO.LAB 13:46
PROVIDERS: PCP Internal Medicine Medical Oncology; Visit Provider Physician Assistant
DX: I48.91 Unspecified atrial fibrillation (principal); R06.02 Shortness of breath
CPT/HCPCS: 36415; 80053; 84443; 85025

== ENCOUNTER 2021-11-18 11:29 | Outpatient (REF) | payer MEDICARE, SELFPAY ==
--- NOTE | ~2021-11-18 | MM_ITS ---
EXAMINATION: MM SCREENING DIGITAL BREAST TOMOSYNTHESIS, BILATERAL CLINICAL INFORMATION: Screening. Asymptomatic. Status post right breast lumpectomy in 1998 COMPARISON: Mammography: March 16, 2020 and studies dating back to January 08, 2010 TECHNIQUE: Digital breast tomosynthesis is performed in both the craniocaudal and mediolateral oblique views along with computer-aided detection (CAD). Synthesized 2D images are generated from the tomosynthesis. FINDINGS: There are scattered areas of fibroglandular density (ACR BI-RADS breast composition Category b). There are no significant masses, abnormal calcifications, or other abnormalities. Architecture distortion from previous lumpectomy upper outer aspect of the right breast again seen. MM/MM tomosynthesis screening BI IMPRESSION: There are no significant changes from prior study. ASSESSMENT: BI-RADS 2: Benign RECOMMENDATION: Routine annual mammography screening. This patient's information was entered into a reminder system with a target due date for their next mammogram.
== END 2021-11-18 11:30 | disposition home or self-care (01) ==
LOC: HO.MAMMO 11:29
PROVIDERS: PCP Internal Medicine Medical Oncology; Visit Provider Internal Medicine Medical Oncology
DX: Z12.31 Encounter for screening mammogram for malignant neoplasm of breast (principal)
CPT/HCPCS: 77063; 77067

== ENCOUNTER 2022-01-10 09:36 | Outpatient (REF) | payer MEDICARE, SELFPAY ==
--- NOTE | ~2022-01-10 | XR_ITS ---
EXAMINATION: XR KNEE, RIGHT XR KNEE, LEFT CLINICAL INFORMATION: Bilateral knee replacement. COMPARISON: None TECHNIQUE: 4 views each knee FINDINGS: RIGHT KNEE: There is a total right knee arthroplasty with prosthetic components in satisfactory alignment. There is no periprosthetic loosening or fracture seen. The soft tissues are normal. LEFT KNEE: There is a total left knee prosthesis with the prosthetic components in satisfactory alignment. There is no periprosthetic fracture or loosening. No abnormal joint effusion. XR/XR knee LT 4V IMPRESSION: Bilateral total knee arthroplasties with prosthetic components in satisfactory alignment. No periprosthetic loosening or joint effusion. No acute fracture seen.
--- NOTE | ~2022-01-10 | XR_ITS ---
EXAMINATION: XR KNEE, RIGHT XR KNEE, LEFT CLINICAL INFORMATION: Bilateral knee replacement. COMPARISON: None TECHNIQUE: 4 views each knee FINDINGS: RIGHT KNEE: There is a total right knee arthroplasty with prosthetic components in satisfactory alignment. There is no periprosthetic loosening or fracture seen. The soft tissues are normal. LEFT KNEE: There is a total left knee prosthesis with the prosthetic components in satisfactory alignment. There is no periprosthetic fracture or loosening. No abnormal joint effusion. XR/XR knee RT 4V IMPRESSION: Bilateral total knee arthroplasties with prosthetic components in satisfactory alignment. No periprosthetic loosening or joint effusion. No acute fracture seen.
== END 2022-01-10 09:37 | disposition home or self-care (01) ==
LOC: HO.XRAY 09:36
PROVIDERS: PCP Internal Medicine Medical Oncology; Visit Provider Internal Medicine Medical Oncology
DX: M25.561 Pain in right knee (principal); M25.562 Pain in left knee
CPT/HCPCS: 73564

== ENCOUNTER 2022-01-18 10:08 | Outpatient (REF) | payer MEDICARE, SELFPAY ==
--- NOTE | ~2022-01-18 | XR_ITS ---
EXAMINATION: XR CHEST CLINICAL INFORMATION: Hemoptysis and cough. COMPARISON: Chest 09/24/2020 TECHNIQUE: 2 views of the chest were obtained. FINDINGS: The lungs are expanded with patchy opacity seen in the left lung base question developing infiltrate. In addition there is increased bilateral parahilar markings slightly more prominent in the right infrahilar region also suspicious for developing infiltrate. Increased markings could be secondary to mild congestion. Heart size is normal. There are pacer electrodes in right atrium and right ventricle. No gross bony abnormality seen. There are surgical june in the right axilla from previous intervention. XR/XR chest 2V IMPRESSION: New patchy opacity left lung base and right lower lobe infrahilar region suspicious of developing infiltrates. There is increased bilateral parahilar markings likely vascular congestion. There is a new pacemaker with dual leads in the right atrium and right ventricle respectively.
== END 2022-01-18 10:09 | disposition home or self-care (01) ==
LOC: HO.XRAY 10:08
PROVIDERS: PCP Internal Medicine Medical Oncology; Visit Provider Internal Medicine Medical Oncology
DX: R04.2 Hemoptysis (principal); R05.9 Cough, unspecified
CPT/HCPCS: 71046

== ENCOUNTER 2022-02-08 08:24 | Emergency (ER) | payer MEDICARE, SELFPAY ==
--- NOTE | ~2022-02-08 | CT_ITS ---
EXAMINATION: CT cervical spine wo con, CT head/brain wo con INDICATION INFORMATION: Reason for Exam fall w/ head strike, on Eliquis COMPARISON: CT brain 12/16/2017 TECHNIQUE: Separate noncontrast CT examinations of the head and cervical spine were performed. Coronal and sagittal images were created for each examination at the technologist workstation. This CT examination was performed using dose optimization techniques as appropriate, variously including the following: *Automated exposure control *Adjustment of mA and/or kV according to patient size (this includes techniques or standardized protocols for targeted exams where dose is matched to indication/reason for exam; i.e. extremities or head) *Use of iterative reconstruction technique DLP: 1104 mGy-cm FINDINGS: Head: No acute osseous or soft tissue abnormality. The mastoid air cells and visualized portions of the paranasal sinuses are well aerated. There is no evidence of acute intracranial hemorrhage or territorial infarction. No abnormal mass effect or midline shift is seen. Love to white matter differentiation is well preserved. No extra-axial fluid collections are identified. Mineralization within the bilateral basal ganglia. Vascular No hydrocephalus. Proportional prominence of the ventricles and sulcal spaces is consistent with mild volume loss. Patchy periventricular and deep white matter hypoattenuation is consistent with moderate small vessel ischemic changes. Cervical spine: There is no evidence of acute cervical spine fracture. Vertebral bodies remain normal in height. Advanced multilevel degenerative disc disease with multilevel spondylolisthesis favored to be degenerative. No pre- or paravertebral soft tissue abnormality is identified. Severe centrilobular emphysema in the lung apices. The thyroid gland is unremarkable. CT/CT cervical spine wo con IMPRESSION: 1. No acute intracranial abnormality. 2. No cervical spine fracture. 3. Advanced multilevel degenerative disc disease with multilevel spondylolisthesis favored to be degenerative.
--- NOTE | ~2022-02-08 | XR_ITS ---
EXAMINATION: XR WRIST, RIGHT CLINICAL INFORMATION: Wrist pain COMPARISON: 12/11/2015. TECHNIQUE: PA, lateral, oblique, and scaphoid views of the right wrist. XR/XR wrist RT 2V FINDINGS/IMPRESSION: * Acute obliquely oriented nondisplaced fracture of the fourth metacarpal diaphysis. * Severe degenerative changes of the first CMC joint with osbd-fa-lhne contact. * Chronic widening of the scapholunate interval, associated with dorsal intercalated segmental instability, and mild proximal migration of the capitate, appearing similar to prior. * Degenerative changes of the radiocarpal joint subchondral sclerosis. The joint space narrowing at the radiocarpal joint was more evident on the prior exam. * Chondrocalcinosis. * Soft tissue swelling dorsal to the wrist and hand. .
--- NOTE | ~2022-02-08 | XR_ITS ---
EXAMINATION: XR chest 1V CLINICAL INFORMATION: Reason for Exam SOB COMPARISON: Chest radiograph 01/10/2022 TECHNIQUE: One view of the chest XR/XR chest 1V FINDINGS/IMPRESSION: * Few streaky basilar airspace opacities favored to reflect atelectasis. * No pneumothorax or pleural effusion. * Normal cardiomediastinal silhouette. * Right axillary surgical clips and left chest wall dual lead cardiac pacemaker unchanged.
[2022-02-08 09:18] VITALS: BP 119/70; PULSE 112; RESP 18; TEMP 36.1; O2SAT 96; BMI 23.8
--- NOTE | 2022-02-08 16:12 | ED_ITS ---
HPI - Fall General Chief Complaint: Fall Stated Complaint: fall T-1/possible broken hand/swelling Time Seen by Provider: 02/08/22 14:29 Source: patient Mode of arrival: ambulatory Limitations: no limitations History of Present Illness HPI Narrative: 81-year-old female with history of persistent AFib on Eliquis, COPD, chronic back pain, diverticulitis, pulmonary nodules who presents to the ER for evaluation of right hand pain after she had a mechanical fall yesterday. Patient reports at 11:00 yesterday she was going to the doctor when she her legs gave out and she fell flat on her face. She did not lose consciousness. She sustained some abrasions to her left knee. She saw her PCP shortly after her fall and the wounds were cleansed. Patient woke up this morning with significant right hand swelling and ecchymosis. She reports there was only minor pain yesterday and the pain has been significantly increased. This is the patient's 3rd fall in 2 and half months. She has an MRI of her low back pending to evaluate her chronic low back pain and chronic lower extremity weakness causing her falls. MD complaint: fall Onset (ago): hour(s) (30) Fall from: standing Fall witnessed: yes, by family Place fall occurred: home Loss of consciousness: none Prolonged down time: no Symptoms prior to fall: none Context: tripped/slipped and history of frequent falls Location of injury: head Location of injury - extremities: right: hand Severity: moderate Severity scale (1-10): 6 Quality: aching Associated symptoms (after fall): weakness Related Data Home Medications Medication Instructions Recorded Confirmed omeprazole 20 mg capsule,delayed 20 mg PO DAILY 05/03/20 10/05/20 release albuterol sulfate 90 mcg/actuation 1 puff inhalation Q4H PRN 09/24/20 10/05/20 aerosol inhaler Respiratory Distress Previous Rx's Medication Instructions Recorded tiotropium bromide 2.5 2 inh inhalation QAM 30 days #4 09/30/20 mcg/actuation mist for inhalation grams (Spiriva Respimat) apixaban 5 mg tablet (Eliquis) 5 mg PO BID #180 tabs 10/26/20 metoprolol tartrate 25 mg tablet 25 mg PO BID #180 tabs 11/05/20 tiotropium bromide 1.25 2 puff inhalation DAILY 30 days #4 11/26/20 mcg/actuation mist for inhalation grams (Spiriva Respimat) tramadol 50 mg tablet 50 mg PO Q8H PRN pain #9 tabs 02/08/22 Allergies Allergy/AdvReac Type Severity Reaction Status Date / Time No Known Allergies Allergy Verified 11/26/20 09:55 [No Known Allergies*] Review of Systems Review of Systems: Constitutional: No Fever, No Chills ENT/Mouth: No sore throat, No Rhinorrhea, No Swallowing Difficulty Eyes: No Eye Pain, No Swelling, No Redness Cardiovascular: No Chest Pain, No SOB, No Orthopnea, + Edema , +Palpitations Respiratory: No Cough, No Sputum, No Wheezing, No dyspnea Gastrointestinal: No Nausea, No Vomiting, No Diarrhea, No abdominal Pain Genitourinary: No Dysuria, No Urinary Frequency, No Hematuria Musculoskeletal: +joint pain, + Myalgias Skin: No Skin Lesions, No rash Neuro: + Weakness, No Numbness, No Dizziness, No Headache Psych: No Anxiety/Panic, No Depression Heme/Lymph: + Bruising, No Lymphadenopathy Endocrine: No Polyuria, No Polydipsia [facility] Past Medical History Medical History (Updated 02/08/22 @ 16:53 by DEISI Wilson) Afib MARIE (acute kidney injury) Atrial fibrillation Breast cancer Chronic back pain Chronic diastolic (congestive) heart failure Congestive heart failure COPD (chronic obstructive pulmonary disease) COPD (chronic obstructive pulmonary disease) Diverticulitis HTN (hypertension) Hypoxemia requiring supplemental oxygen Mitral regurgitation Persistent atrial fibrillation Pulmonary hypertension Pulmonary nodules Surgical History History of appendectomy History of bilateral knee replacement Status post right breast lumpectomy Family History Family History Father No problems noted. Mother No problems noted. Social History Social History Household Members: Spouse Housing: House Do you presently have visiting nurse or other home services: No Alcohol intake: never Second Hand Smoke Exposure: No Advance Directives: Yes Advance Directives Information Provided: No Advance Directives on File: No service: No Current occupational status: retired Physical Exam Vital Signs: Vital Signs: Last Vital Signs Temp 97 F 02/08/22 09:18 Pulse 77 02/08/22 16:24 Resp 18 02/08/22 16:24 BP 118/80 02/08/22 16:24 Pulse Ox 96 02/08/22 16:24 O2 Del Method 02/08/22 16:24 BMI result Body Mass Index 23.8 Appearance: Alert elderly female sitting in a wheelchair. Oriented X3. No acute distress. Eyes: Pupils equal, round and reactive to light. ENT: Pharynx normal. Neck: Normal inspection. Neck supple. No cervical spinal tenderness. Normal ROM CVS: Irregularly irregular, normal rate of 80. Pulses normal. Respiratory: No respiratory distress. Breath sounds normal. Abdomen: Soft and nontender. +BS x4 Skin: Skin warm and dry. Normal skin color. Normal skin turgor. No rashes. Extremities: Right dorsal and palmar aspects of her hand with moderate swelling and ecchymosis. Point tenderness over the 4th metacarpal. Ring stuck on the 4th digit. Neurovascularly intact distally. Normal range of motion of the wrist and hand as well as all the digits. Mild scattered ecchymosis on the right forearm. Normal range of motion of the elbow on the right, no tenderness. 1+ lower extremity edema of the tops of the feet and distal lower leg. Neuro: Oriented X 3. No motor deficit. No sensory deficit. Course Course Course Narrative: 81-year-old female with a history of persistent AFib on [facility], recurrent falls, COPD, diverticulitis, breast cancer, pulmonary nodules who presents to the ER for evaluation of right hand pain and swelling after mechanical fall yesterday. She fell and hit her head. She denies any headache or neck pain. She has appropriate neuro is are intact. She is in rapid AFib in triage heart rate 112. When brought to the treatment room her heart rates are 80s to 90s. She has significant swelling and bruising of her right hand. X-rays revealing a acute, obliquely oriented nondisplaced fracture of the 4th metacarpal diaphysis. There is severe degenerative changes of the 1st CMC joint with punl-ev-[id number] contact. She has chronic widening of the scapholunate interval. She also has degenerative changes in the radiocarpal joint subchondral sclerosis. Attempted to ice and elevate the hand to decrease the swelling of the digit to allow the ring to come off however this was unsuccessful. Ring cutters were used to successfully get the ring off of her 4th right finger. Patient appreciated getting the ring removed here and was in agreement. Given she is on Eliquis and hit her head we will get CT scans of her head and neck. Will also get basic lab workup and urinalysis to further assess for any metabolic causes of her weakness and falls. Reevaluation(s) Reevaluation #1: Patient's WBC 14.8. Of note she has been on prednisone for recent diagnosis of bronchitis. Will follow-up her chest x-ray and urinalysis. She is afebrile here. Reevaluation #2: UA negative for infection. Labs otherwise unremarkable, glucose 300s after eating a piece of candy. she remains hemodynamically stable. will have her fol low up with Orthopedics for re-evaluation of her hand fracture. Will send home with a sling for elevation. She is stable for discharge home with outpatient follow-up. Procedures Orthopedic Splinting/Casting Injury #1: Side: right Upper Extremity Injury Location: hand Upper Extremity Immobilizer: ulnar gutter Additional Comments: NV intact after placement. patient comfortable. MDM - Fall Medical Records Attestation: I reviewed the patient's medical records. Lab Data Attestation: I reviewed the patient's lab results. Result diagrams: 02/08/22 17:00 02/08/22 17:00 Labs: Lab Results 02/08/22 02/08/22 02/08/22 Range/Units 17:00 17:00 17:00 WBC 14.8 H (4.8-10.8) X10*3/uL RBC 3.74 L (4.20-5.50) X10*6/uL Hgb 11.7 L (12.0-16.0) g/dl Hct 36.1 L (37.0-47.0) % MCV 96.5 (80.0-98.0) fL MCH 31.3 (27.0-33.0) pg MCHC 32.4 (31.0-35.0) g/dl RDW 18.8 H (11.0-16.0) % Plt Count 187 (160-400) X10*3/uL MPV 9.5 (9.4-12.3) fL Immature Gran % (Auto) 2.8 H (0.0-0.4) % Neut % (Auto) 89.8 H (45-73) % Lymph % (Auto) 2.4 L (20-40) % [place] % (Auto) 4.9 (2-11) % Eos % (Auto) 0.0 (0-4) % Baso % (Auto) 0.1 (0-2) % Lymph # (Auto) 0.4 L (1.2-4.9) X10*3/uL [place] # (Auto) 0.7 (0.1-1.2) X10*3/uL Eos # (Auto) 0.0 (0.0-0.4) X10*3/uL Baso # (Auto) 0.0 (0.0-0.2) X10*3/uL Abs Immat Gran (auto) 0.42 H (0.00-0.03) X10*3/uL Absolute Neuts (auto) 13.3 H (2.0-8.3) x10*3/uL Absolute Nucleated RBC 0.030 H (0.0-0.012) X10*3/uL Nucleated RBC % (auto) 0.2 (0.0-0.2) /100WBC Sodium 135 (135-145) mmol/L Potassium 4.8 (3.3-5.1) mmol/L Chloride 104 (96-108) mmol/L Carbon Dioxide 19 L (22-29) mmol/L Anion Gap 17 (12-20) BUN 26 H (9-16) mg/dL Creatinine 1.38 (0.5-1.4) mg/dL Estim Creat Clear Calc 24.8 Estimated GFR 37 Random Glucose 329 H (60-115) mg/dL Calcium 8.2 L D (8.4-10.2) mg/dL Magnesium 2.0 (1.6-2.6) mg/dL Total Bilirubin 1.2 H (0.0-1.0) mg/dL Direct Bilirubin 0.4 (0.0-0.5) mg/dL AST 33 H D (5-31) U/L ALT 45 H (0-31) U/L Alkaline Phosphatase 120 H (39-117) U/L B-Natriuretic Peptide 412 H (<100) pg/mL Total Protein 6.2 L (6.5-8.0) g/dL Albumin 3.7 (3.5-5.0) g/dL Urine Color Urine Appearance Urine pH (5.0-8.0) Ur Specific [place] (1.005-1.025) Urine Protein (NEG-TRACE) MG/DL Urine Glucose (UA) (NEG) MG/DL Urine Ketones (NEG) MG/DL Urine Blood (NEG) Urine Nitrite (NEG) Ur Leukocyte Esterase (NEG) 02/08/22 Range/Units 17:33 WBC (4.8-10.8) X10*3/uL RBC (4.20-5.50) X10*6/uL Hgb (12.0-16.0) g/dl Hct (37.0-47.0) % MCV (80.0-98.0) fL MCH (27.0-33.0) pg MCHC (31.0-35.0) g/dl RDW (11.0-16.0) % Plt Count (160-400) X10*3/uL MPV (9.4-12.3) fL Immature Gran % (Auto) (0.0-0.4) % Neut % (Auto) (45-73) % Lymph % (Auto) (20-40) % [place] % (Auto) (2-11) % Eos % (Auto) (0-4) % Baso % (Auto) (0-2) % Lymph # (Auto) (1.2-4.9) X10*3/uL [place] # (Auto) (0.1-1.2) X10*3/uL Eos # (Auto) (0.0-0.4) X10*3/uL Baso # (Auto) (0.0-0.2) X10*3/uL Abs Immat Gran (auto) (0.00-0.03) X10*3/uL Absolute Neuts (auto) (2.0-8.3) x10*3/uL Absolute Nucleated RBC (0.0-0.012) X10*3/uL Nucleated RBC % (auto) (0.0-0.2) /100WBC Sodium (135-145) mmol/L Potassium (3.3-5.1) mmol/L Chloride (96-108) mmol/L Carbon Dioxide (22-29) mmol/L Anion Gap (12-20) BUN (9-16) mg/dL Creatinine (0.5-1.4) mg/dL Estim Creat Clear Calc Estimated GFR Random Glucose (60-115) mg/dL Calcium (8.4-10.2) mg/dL Magnesium (1.6-2.6) mg/dL Total Bilirubin (0.0-1.0) mg/dL Direct Bilirubin (0.0-0.5) mg/dL AST (5-31) U/L ALT (0-31) U/L Alkaline Phosphatase (39-117) U/L B-Natriuretic Peptide (<100) pg/mL Total Protein (6.5-8.0) g/dL Albumin (3.5-5.0) g/dL Urine Color DK YELLOW Urine Appearance CLEAR Urine pH 6.0 (5.0-8.0) Ur Specific [place] >= 1.030 H (1.005-1.025) Urine Protein TRACE (NEG-TRACE) MG/DL Urine Glucose (UA) 100 H (NEG) MG/DL Urine Ketones 5 (NEG) MG/DL Urine Blood NEG (NEG) Urine Nitrite NEG (NEG) Ur Leukocyte Esterase NEG (NEG) ECG Data Attestation: I personally reviewed and interpreted this ECG as follows: ECG interpretation date: 02/08/22 ECG interpretation time: 17:59 Interpretation: atrial fibrillation, HR 81 bpm, isolated t-wave inversion in lead III only. no ST segment elevations or depressions Critical Care Time Critical Care Time Critical Care Time: No Discharge Plan Discharge Clinical Impression: Closed fracture of fourth metacarpal bone Patient Disposition: Home, Self-Care Instructions: Hand Fracture (ED) Additional Instructions: Your x-ray showed a broken bone in your hand. Wear the applied splint until you are evaluted by the Orthopedic provider - name and number below Take Tylenol 1000 mg every 6 hours as needed for pain Wear the sling to keep your hand elevated and help with swelling When able put your hand under several pillows Take the prescribed medication as needed for severe pain. If you develop new or worsening symptoms call 911 or come back to the ER for further evaluation. Prescriptions: New tramadol 50 mg tablet 50 mg PO Q8H PRN (Reason: pain) Qty: 9 0RF Rx Instructions: partial fill upon patient request No Action Spiriva Respimat 2.5 mcg/actuation mist 2 inh inhalation QAM 30 Days Qty: 4 5RF apixaban [Eliquis] 5 mg tablet 5 mg PO BID Qty: 180 3RF metoprolol tartrate 25 mg tablet 25 mg PO BID Qty: 180 1RF albuterol sulfate 90 mcg/actuation Hfa Aerosol Inhaler 1 puff INHALATION Q4H PRN (Reason: Respiratory Distress) omeprazole 20 mg Capsule,Delayed Release(Dr/Ec) 20 mg PO DAILY Spiriva Respimat 1.25 mcg/actuation mist 2 puff inhalation DAILY 30 Days Qty: 4 3RF Referrals: Mildred Joshi PA-C [Physician Hydrogenation Still Operator] - (broken 4th MCP, in ulnar gutter splint) Interventions: ED Discharge Assessment Last Done: 02/08/22 18:25 Discharge Date/Time: 02/08/22 18:26
[2022-02-08 16:24] VITALS: BP 118/80; PULSE 77; RESP 18; O2SAT 96
--- NOTE | 2022-02-08 16:24 | ECG_ITS ---
Test Reason : FALL Blood Pressure : / mmHG Vent. Rate : 081 BPM Atrial Rate : 000 BPM P-R Int : 000 ms QRS Dur : 090 ms QT Int : 400 ms P-R-T Axes : 000 -29 -23 degrees QTc Int : 464 ms Atrial fibrillation with occasional ventricular-paced complexes Septal infarct , age undetermined Abnormal ECG When compared with ECG of 24-SEP-2020 10:14, Electronic ventricular pacemaker has replaced Atrial fibrillation Referred By: Corinne Yousif Electronically Signed By:Ricardo Lackey
[2022-02-08] MEDS: oxyCODONE HCl Immed Release 5 MG TABLET PO (16:52)
[2022-02-08] MEDS: Acetaminophen 325 MG TABLET 975 MG PO (16:52)
[2022-02-08 17:04] LABS: MANUAL DIFF FLAG NO
[2022-02-08 17:08] LABS: Basophils Percent Auto 0.1 % (0-2); Hematocrit 36.1 % (37.0-47.0); Hemoglobin 11.7 g/dl (12.0-16.0); Imm Gran Abs Auto 0.42 X10*3/uL (0.00-0.03); Imm Gran Pct Auto 2.8 % (0.0-0.4); Lymphocytes Absolute Auto 0.4 X10*3/uL (1.2-4.9); Lymphocytes Percent Auto 2.4 % (20-40); Mean Corpuscular HGB Conc 32.4 g/dl (31.0-35.0); Mean Corpuscular Hemoglobin 31.3 pg (27.0-33.0); Mean Corpuscular Volume 96.5 fL (80.0-98.0); Mean Platelet Volume 9.5 fL (9.4-12.3); Monocytes Absolute Auto 0.7 X10*3/uL (0.1-1.2); Monocytes Percent Auto 4.9 % (2-11); NRBC Pct Auto 0.2 /100WBC (0.0-0.2); Neutrophils Absolute Auto 13.3 x10*3/uL (2.0-8.3); Neutrophils Percent Auto 89.8 % (45-73); Platelet Count 187 X10*3/uL (160-400); Red Blood Count 3.74 X10*6/uL (4.20-5.50); Red Cell Distribution Width 18.8 % (11.0-16.0); White Blood Count 14.8 X10*3/uL (4.8-10.8)
[2022-02-08 17:39] LABS: Alanine Aminotransferase 45 U/L (0-31); Albumin Level 3.7 g/dL (3.5-5.0); Alkaline Phosphatase 120 U/L (39-117); Anion Gap 17 (12-20); Aspartate Amino Transferase 33 U/L (5-31); Bilirubin Direct 0.4 mg/dL (0.0-0.5); Bilirubin Total 1.2 mg/dL (0.0-1.0); Blood Urea Nitrogen 26 mg/dL (9-16); Calcium 8.2 mg/dL (8.4-10.2); Carbon Dioxide 19 mmol/L (22-29); Chloride 104 mmol/L (96-108); Creatinine Clr Calc Pharmacy 24.8; Estimated Glomerular Filt Rate 37; Glucose Random 329 mg/dL (60-115); Potassium 4.8 mmol/L (3.3-5.1); Sodium 135 mmol/L (135-145); Total Protein 6.2 g/dL (6.5-8.0)
[2022-02-08 17:41] LABS: B Type Natriuretic Peptide 412 pg/mL (<100)
[2022-02-08 17:43] LABS: Appearance Urine CLEAR; Color Urine DK YELLOW; Glucose Urine UA 100 MG/DL (NEG); Leukocyte Esterase Urine NEG (NEG); Nitrite Urine NEG (NEG); Specific Gravity - Urine >= 1.030 (1.005-1.025); Urine Blood NEG (NEG); Urine Ketones 5 MG/DL (NEG); Urine Protein TRACE MG/DL (NEG-TRACE)
== END 2022-02-08 18:26 | disposition home or self-care (01) ==
PROVIDERS: Physician Assistant; Emergency Provider Student in an Organized Health Care Education/Training Program; PCP Internal Medicine Medical Oncology
DX: S62.394A Other fracture of fourth metacarpal bone, right hand, initial encounter for closed fracture (principal); S80.212A Abrasion, left knee, initial encounter; R53.1 Weakness; R60.0 Localized edema; M11.231 Other chondrocalcinosis, right wrist; R00.2 Palpitations; G89.29 Other chronic pain; M54.50 Low back pain, unspecified; I48.19 Other persistent atrial fibrillation; I11.0 Hypertensive heart disease with heart failure; I50.32 Chronic diastolic (congestive) heart failure; Z91.81 History of falling; Z79.01 Long term (current) use of anticoagulants; W17.89XA Other fall from one level to another, initial encounter; Y93.89 Activity, other specified; Y92.019 Unspecified place in single-family (private) house as the place of occurrence of the external cause; Y99.9 Unspecified external cause status
CPT/HCPCS: 29125; 36415; 70450; 71045; 72125; 73100; 80048; 80076; 81003; 83735; 83880; 85025; 93005; 99283; 99284

== ENCOUNTER → 2022-02-14 08:52 | Outpatient (BNVA) | payer MEDICARE, SELFPAY | PROVIDERS: PCP Internal Medicine Medical Oncology; Visit Provider Physician Assistant | DX: S62.304A Unspecified fracture of fourth metacarpal bone, right hand, initial encounter for closed fracture (principal) | CPT/HCPCS: 99202 ==

== ENCOUNTER 2022-02-21 12:17 | Outpatient (REF) | payer MEDICARE, SELFPAY ==
--- NOTE | ~2022-02-21 | MR_ITS ---
MR LUMBAR SPINE WITHOUT IV CONTRAST CLINICAL INFORMATION: Stenosis of L3-L5. Low back pain. COMPARISON: Lumbar spine MRI 02/13/2017. TECHNIQUE: MRI of the lumbar spine was obtained using routine sequences without contrast. FINDINGS: 5 nonrib-bearing lumbar-type vertebral bodies. There is an acute edematous upper endplate compression fracture at L2 exhibiting 20% vertebral body height loss and slight upper endplate retropulsion. There is an acute edematous inferior endplate compression fracture at L1 associated with slight inferior endplate height loss. There is an acute edematous upper endplate compression fracture at T11 exhibiting slight upper endplate height loss and no retropulsion. There is a partially imaged acute edematous biconcave compression fracture at T10 exhibiting 70% vertebral body height loss and slight inferior endplate retropulsion that minimally indents the ventral thecal sac. Remaining vertebral body heights are maintained. There is grade 1 anterolisthesis of L4 on L5 and L3 on L4 that is unchanged. Stable grade 1 retrolisthesis of L2 on L3. Progressive moderate to severe disc volume loss at L2-L3 and L4-L5. Severe disc volume loss at L5-S1 unchanged. Conus terminates at the L1 level. Bilateral renal cysts. Severe bilateral paraspinal muscular atrophy. L1-L2: Small annular disc bulge and moderate bilateral facet arthropathy. No central canal stenosis. Mild bilateral foraminal encroachment. Findings are progressed. L2-L3: Grade 1 retrolisthesis. Disc osteophyte eccentric to the right side and moderate bilateral hypertrophic facet arthropathy. No central canal stenosis. Moderate bilateral foraminal stenosis unchanged. L3-L4: There is grade 1 anterolisthesis. Uncovered disc osteophyte. Severe bilateral facet arthropathy and ligamentum flavum thickening. Findings in concert result in progressive right subarticular zone stenosis with mass effect on the traversing right L4 nerve root. Mild narrowing of the central canal and mild bilateral foraminal encroachment. L4-L5: Grade 1 anterolisthesis. Diffuse disc osteophyte eccentric to the right side and severe bilateral facet arthropathy and ligamentum flavum thickening. Findings in concert result in similar right subarticular zone stenosis with mass effect on the traversing right L5 nerve root and a right lateral disc protrusion results in similar severe right foraminal stenosis with compression of the exiting right L4 nerve root. L5-S1: Diffuse disc osteophyte complex and advanced bilateral facet arthropathy. Superimposed left lateral disc osteophyte protrusion compresses the extraforaminal left L5 nerve root. MR/MR lumbar spine wo con IMPRESSION: - There is an acute edematous upper endplate compression fracture at L2 exhibiting 20% vertebral body height loss and slight upper endplate retropulsion. - There is an acute edematous inferior endplate compression fracture at L1 associated with slight inferior endplate height loss. - There is an acute edematous upper endplate compression fracture at T11 exhibiting slight upper endplate height loss and no retropulsion. - There is a partially imaged acute edematous biconcave compression fracture at T10 exhibiting 70% vertebral body height loss and slight inferior endplate retropulsion that minimally indents the ventral thecal sac. - At L3-L4, grade 1 degenerative anterolisthesis and progressive spondylitic changes result in worsening right subarticular zone stenosis with mass effect on the traversing right L4 nerve root. - At L4-L5, grade 1 degenerative anterolisthesis and a right lateral disc osteophyte protrusion results in similar right subarticular zone stenosis with mass effect on the traversing right L5 nerve root and a right lateral disc protrusion results in similar severe right foraminal stenosis with compression of the exiting right L4 nerve root. - At L5-S1, a left lateral disc osteophyte protrusion compresses the extraforaminal left L5 nerve root. - Leftward convex lumbar scoliosis. - Severe bilateral paraspinal muscular atrophy.
== END 2022-02-21 12:18 | disposition home or self-care (01) ==
LOC: HO.MRI 12:17
PROVIDERS: Visit Provider Internal Medicine Medical Oncology
DX: M48.061 Spinal stenosis, lumbar region without neurogenic claudication (principal)
CPT/HCPCS: 72148

== ENCOUNTER 2022-02-23 09:47 | Outpatient (REF) | payer MEDICARE, SELFPAY ==
[2022-02-23 10:23] LABS: MANUAL DIFF FLAG NO
[2022-02-23 10:54] LABS: Basophils Percent Auto 0.6 % (0-2); Eosinophils Percent Auto 0.6 % (0-4); Hematocrit 29.3 % (37.0-47.0); Hemoglobin 9.4 g/dl (12.0-16.0); Imm Gran Abs Auto 0.13 X10*3/uL (0.00-0.03); Imm Gran Pct Auto 2.6 % (0.0-0.4); Lymphocytes Absolute Auto 0.7 X10*3/uL (1.2-4.9); Lymphocytes Percent Auto 14.6 % (20-40); Mean Corpuscular HGB Conc 32.1 g/dl (31.0-35.0); Mean Corpuscular Hemoglobin 31.3 pg (27.0-33.0); Mean Corpuscular Volume 97.7 fL (80.0-98.0); Mean Platelet Volume 9.1 fL (9.4-12.3); Monocytes Absolute Auto 0.5 X10*3/uL (0.1-1.2); Monocytes Percent Auto 10.8 % (2-11); Neutrophils Absolute Auto 3.5 x10*3/uL (2.0-8.3); Neutrophils Percent Auto 70.8 % (45-73); Platelet Count 207 X10*3/uL (160-400); Red Cell Distribution Width 17.1 % (11.0-16.0)
[2022-02-23 11:17] LABS: B Type Natriuretic Peptide 667 pg/mL (<100)
[2022-02-23 14:26] LABS: Alanine Aminotransferase 17 U/L (0-31); Albumin Level 3.4 g/dL (3.5-5.0); Alkaline Phosphatase 108 U/L (39-117); Anion Gap 16 (12-20); Aspartate Amino Transferase 15 U/L (5-31); Bilirubin Total 0.8 mg/dL (0.0-1.0); Blood Urea Nitrogen 16 mg/dL (9-16); Calcium 8.4 mg/dL (8.4-10.2); Carbon Dioxide 19 mmol/L (22-29); Chloride 109 mmol/L (96-108); Cholesterol 174 mg/dL; Estimated Glomerular Filt Rate 34; Glucose Fasting 90 mg/dL (60-99); HDL Cholesterol 56 mg/dL; LDL Cholesterol Calculated 96 mg/dl; Potassium 4.3 mmol/L (3.3-5.1); Sodium 140 mmol/L (135-145); Total Protein 5.5 g/dL (6.5-8.0); Triglycerides 113 mg/dL
== END 2022-02-23 09:48 | disposition home or self-care (01) ==
LOC: HO.LAB 09:47
PROVIDERS: PCP Internal Medicine Medical Oncology; Visit Provider Internal Medicine Medical Oncology
DX: I10 Essential (primary) hypertension (principal); E66.3 Overweight
CPT/HCPCS: 36415; 80053; 80061; 83880; 85025

== ENCOUNTER 2022-03-14 13:41 | Outpatient (REF) | payer MEDICARE, SELFPAY ==
--- NOTE | ~2022-03-14 | XR_ITS ---
EXAMINATION: XR HAND, RIGHT CLINICAL INFORMATION: Pain. COMPARISON: Radiograph of the right wrist 02/08/2022. TECHNIQUE: PA, lateral, and oblique views of the right hand. FINDINGS: Redemonstration of an obliquely oriented fracture in the fourth metacarpal. No new fractures. Decreased bone mineralization with moderate to severe multifocal degenerative osteoarthritis, more notable in the wrist where there is widening of the scapholunate interval with associated proximal migration of the capitate, similar to prior. Again noted chondrocalcinosis in the wrist. XR/XR hand RT min 3V IMPRESSION: Obliquely oriented fracture of the fourth metacarpal with mildly increased callus formation. Redemonstration of severe degenerative changes in the wrist with findings of dorsal intercalated segment instability. Chondrocalcinosis.
== END 2022-03-14 13:42 | disposition home or self-care (01) ==
LOC: HO.HOSX 13:41
PROVIDERS: Visit Provider Physician Assistant
DX: M79.641 Pain in right hand (principal)
CPT/HCPCS: 73130

== ENCOUNTER 2022-04-01 14:19 | Outpatient (REF) | payer MEDICARE, SELFPAY | END 2022-04-01 14:20 | disposition home or self-care (01) | LOC: HO.LNP 14:19 | PROVIDERS: Visit Provider Internal Medicine Medical Oncology | DX: R04.9 Hemorrhage from respiratory passages, unspecified (principal); R05.9 Cough, unspecified | CPT/HCPCS: 87070; 87077; 87185; 87205 ==

== ENCOUNTER 2022-04-06 12:41 | Outpatient (REF) | payer MEDICARE, SELFPAY | END 2022-04-06 12:42 | disposition home or self-care (01) | LOC: HO.HMGCLDS 12:41 | PROVIDERS: Visit Provider Neurological Surgery | DX: Z13.89 Encounter for screening for other disorder (principal) ==

== ENCOUNTER 2022-05-09 12:33 | Outpatient (REF) | payer MEDICARE, SELFPAY ==
--- NOTE | ~2022-05-09 | MR_ITS ---
EXAMINATION: MR THORACIC SPINE WITHOUT CONTRAST CLINICAL INFORMATION: Mid back pain. Rule out compression fracture. COMPARISON: Lumbar spine MRI from 02/21/2022 and thoracic MRI from 02/13/2017. TECHNIQUE: MRI of the thoracic spine was obtained using routine sequences without contrast. FINDINGS: A chronic biconcave compression fracture is again evident at the T10 level with a 90% loss of vertebral body height centrally. Minimal bony retropulsion again evident. There is a mild thoracic kyphosis centered at this level. No additional new compression fractures are seen. The marrow signal is otherwise fairly homogeneous. A chronic mild superior endplate compression fracture is again evident at the L2 level with a 30-40% loss of vertebral body height centrally and anteriorly. There is severe disc space narrowing and mild retrosubluxation at the L2-L3 level mildly distorting the ventral thecal sac. Hypertrophic facet arthropathy also evident at this level with [id number] foraminal encroachment. There is significant spondylosis in the lower cervical and upper thoracic spine with multilevel anterior subluxations and hypertrophic facet arthropathy contributing to foraminal encroachment. There is mild central canal stenosis at the T1-T2 level. Slight narrowing of the central canal also evident at the T9-T10 level. There is [id number] central canal stenosis at the T10-T11 level with moderate facet arthropathy and thecal sac distortion. Moderate facet degeneration and mild disc bulge evident at the T11-T12 level with moderate right foraminal narrowing and very mild encroachment upon the central canal. No thoracic cord signal abnormality or syrinx is seen. No abnormal epidural collection identified. The conus tip and cauda equina nerve roots are normal. There is a lobulated soft tissue focus posteriorly in the right lung at the T7 level which is indeterminate, measuring 1 x 2.6 cm in size in the axial plane. Innumerable small hepatic cysts are noted. Scattered small renal cysts are also partially visualized for which no further imaging follow up is indicated. MR/MR thoracic spine wo con IMPRESSION: 1. 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 No marrow edema to suggest an acute compression fracture. 2. Chronic mild superior endplate compression fracture at the L2 level with a 30-40% loss of vertebral body height centrally and anteriorly. 3. 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 Mild central canal stenosis at the T1-T2 level. [id number] central canal stenosis at the T10-T11 level. No cord signal abnormality. 4. Indeterminate 1 x 2.6 cm soft tissue focus posteriorly in the right lung at the T7 level. A dedicated CT scan of the chest with contrast is recommended for further evaluation. Imaging findings reported to DEISI Dias at 3:05 PM on 05/10/2022.
[2022-05-09 14:50] LABS: Anion Gap 17 (12-20); Blood Urea Nitrogen 20 mg/dL (9-16); Calcium 8.2 mg/dL (8.4-10.2); Carbon Dioxide 17 mmol/L (22-29); Chloride 108 mmol/L (96-108); Estimated Glomerular Filt Rate 40; Glucose Random 111 mg/dL (60-115); Potassium 4.1 mmol/L (3.3-5.1); Sodium 138 mmol/L (135-145)
== END 2022-05-09 12:34 | disposition home or self-care (01) ==
LOC: HO.MRI 12:33
PROVIDERS: Absent Provider Physician Assistant; PCP Internal Medicine Medical Oncology; Visit Provider Neurological Surgery
DX: M54.6 Pain in thoracic spine (principal); S22.009A Unspecified fracture of unspecified thoracic vertebra, initial encounter for closed fracture
CPT/HCPCS: 36415; 72146; 80048